=== PATIENT | male | born 1930 | race Caucasian/White ===

== ENCOUNTER 2017-08-12 17:25 | Inpatient (IN) | payer MEDICARE ==
[2017-08-12] VITALS (11 sets, daily range): BP systolic 78–105; BP diastolic 40–61
[~2017-08-12] VITALS: Ht 170.2 cm; Wt 63.5 kg
--- NOTE | 2017-08-12 17:58 | EKG ---
[facility] [address] [place] [address] Test Date: 2017-08-12 Test Time: 17:32:48 Pat Name: DEEJAY MADDEN Department: Room: Gender: Environmental Tech: [place] : 1930 Requested By: AUGUSTINE OLIVEIRA Order Number: [id number] Reading MD: David Guerrero MD Measurements Intervals [place] Rate: 100 P: -149 AR: 164 QRS: 90 QRSD: 44 T: -94 QT: 386 QTc: 501 Interpretive Statements SUSPECT SR LBBB Electronically Signed On 08-18-2017 16:42:44 BUSINESS COMPUTERS TEACHER by David Guerrero MD
[2017-08-12 17:59] LABS: BASO % 1 % (0-3); EOS % 0 % (0-3); HEMATOCRIT 43.2 % (39.0-53.0); HEMOGLOBIN 14.6 g/dL (13.0-17.5); LYMPH # 1.1 x10^3/uL (1.0-4.8); LYMPH % 15 % (24-48); MEAN CORPUSCULAR HEMOGLOBIN 31 pg (25-35); MEAN CORPUSCULAR HGB CONC 34 g/dL (31-37); MEAN CORPUSCULAR VOLUME 93 fL (79-100); MONO % 4 % (0-9); NEUT % 80 % (31-73); PLATELET COUNT 180 x10^3/uL (140-400); RED BLOOD COUNT 4.66 x10^6/uL (4.30-5.70); WHITE BLOOD COUNT 7.3 x10^3/uL (4.0-11.0)
[2017-08-12] MEDS ORDERED: DUTA0.5C PO (18:01)
[2017-08-12] MEDS ORDERED: CARV6.252 PO (18:01)
[2017-08-12] MEDS ORDERED: CHOL2000 PO (18:01)
[2017-08-12] MEDS ORDERED: CALC1TAB PO (18:01)
[2017-08-12] MEDS ORDERED: LAMO100T5 PO (18:01)
[2017-08-12] MEDS ORDERED: DOCU100C28 PO (18:01)
[2017-08-12] MEDS ORDERED: LEVO50TA5 PO (18:01)
[2017-08-12 18:14] LABS: CALCIUM 7.3 mg/dL (8.5-10.1); CREATININE 1.3 mg/dL (0.7-1.3); GFR 52.1; POTASSIUM 4.6 mmol/L (3.5-5.1)
[2017-08-12 18:20] LABS: ALBUMIN 3.2 g/dL (3.4-5.0); TOTAL BILIRUBIN 0.5 mg/dL (0.2-1.0); TOTAL PROTEIN 6.5 g/dL (6.4-8.2)
[2017-08-12] MEDS: IV NORMAL SALINE 1000ML BAG 1,000 ML IV SCH ×4 (18:20→19:21)
[2017-08-12] MEDS ORDERED: levOFLOXacin PER PHARMACY. MC PRN (18:30)
[2017-08-12] MEDS ORDERED: CALCIUM GLUCONATE 1,000 MG/10 ML VIAL. IVP ONE (18:30)
[2017-08-12 18:32] LABS: CKMB MASS 1.3 ng/mL (0.0-3.6)
[2017-08-12] MEDS ORDERED: guaiFENesin DM 200MG/20MG 10 ML SYRUP PO PRN (18:45)
--- NOTE | 2017-08-12 19:03 | PDOC1 ---
History and Physical Date of Admission Date of Admission DATE: 08/12/17 TIME: 18:56 Identification/Chief Complaint Chief Complaint cp soa Problems: Source Source: Caregiver, Chart review, Patient History of Present Illness History of Present Illness 87 y.o Cauucasian male who lives at home, has dementia and the 2 dtrs that were in earlier is not in room with him during my vist, BUt as per reports, CHARO TEJADA today , no temp or diarrhea but he is coughing and low sats on arrival ,. NOn smoker, no O2 at home, awaiting home meds to get a glimpse of his past medical, He constantly defers to his family when I asks him qs, BUt found to have infiltrates on Right side hence started on CAp coverage, with ICU admit bec of HYPOTENSION, currently getting sepsis protocol fluid challenge, lactate of 5 with normal WBC, Was sinus tachy 1teens on arrival. HOme meds, just in, on bB at home (we will hold) bec of hypotension CAlcium 7.3, corrected is still low at 7.9 Past Medical History Cardiovascular: HTN Endocrine: Hypothyroidism Past Surgical History Past Surgical History: No pertinent history Family History Family History: Hypertension Social History Smoke: No ALCOHOL: none Drugs: None Current Medications Current Medications Current Medications Sodium Chloride 1,000 ml @ 2,040 mls/hr Q30M IV Last administered on t 18:30; Start 08/12/17 at 18:21; Stop 08/12/17 at 19:21 Levofloxacin/ Dextrose (Levaquin Per Pharmacy) 1 each PRN DAILY PRN MC SEE COMMENTS; Start 08/12/17 at 18:30; Status UNV Calcium Gluconate (Calcium Gluconate) 2,000 mg 1X ONCE IVP ; Start 08/12/17 at 18:30; Stop 08/12/17 at 18:38; Status DC Docusate Sodium (Colace) 200 mg DAILY PO ; Start 08/13/17 at 09:00 Dutasteride (Avodart) 0.5 mg DAILY PO ; Start 08/13/17 at 09:00 Lamotrigine (LaMICtal) 200 mg DAILY PO ; Start 08/13/17 at 09:00 Levothyroxine Sodium (Synthroid) 50 mcg DAILY PO ; Start 08/13/17 at 09:00 Vitamin D (Vitamin D3) 2,000 unit DAILY PO ; Start 08/13/17 at 09:00 Calcium/Vitamin D (Oscal D 250mg/ 125uts) 1 tab DAILYWBKFT PO ; Start 08/13/17 at 08:00 Albuterol/ Ipratropium (Duoneb) 3 ml RTQID NEB ; Start 08/12/17 at 20:00 Guaifenesin (Robitussin Dm) 10 ml PRN Q6HRS PRN PO COUGH; Start 08/12/17 at 18: 45 Levofloxacin/ Dextrose 150 ml @ As Directed STK-MED ONCE IV ; Start 08/12/17 at 18:32; Stop 08/12/17 at 18:33; Status DC Levofloxacin/ Dextrose 150 ml @ 100 mls/hr ONCE ONCE IV ; Start 08/12/17 at 18 :45; Stop 08/12/17 at 20:14 Active Scripts Active Reported Avodart (Dutasteride) 0.5 Mg Capsule 1 Cap PO DAILY Docusate Sodium 100 Mg Capsule 2 Cap PO DAILY Caltrate 600 + D Tablet (Calcium Carbonate/Vitamin D3) 1 Each Tablet 1 Each PO Vitamin D (Cholecalciferol (Vitamin D3)) 2,000 Unit Capsule 1 Cap PO DAILY Carvedilol 6.25 Mg Tablet 0.5 Tab PO DAILY Lamictal (Lamotrigine) 100 Mg Tablet 2 Tab PO DAILY Levothyroxine Sodium 50 Mcg Tablet 1 Tab PO DAILY Allergies Allergies: Coded Allergies: No Known Drug Allergies (Unverified , 08/12/17) ROS Review of System limited, dementia Physical Exam General: Alert, Oriented X3, Cooperative, mild distress, Other (hRD Of hearing too) Lungs: Normal air movement, Other (dec BS< poor effort, dullness to percussion Rt side) Heart: S1S2, RRR, no thrills, no rubs, no gallops, other (sinus tachy) Abdomen: Normal bowel sounds, Soft, No tenderness, No hepatosplenomegaly, No masses Male Genitals Exam: normal genitalia, normal prostate Rectal Exam: not examined PELVIC: Nml ext genitalia Extremities: No clubbing, No cyanosis, No edema, Normal pulses, No tenderness/ swelling Skin: No rashes, No breakdown, No significant lesion Neuro: Normal gait, Normal speech, Strength at 5/5 X4 ext, Normal tone, Sensation intact, Cranial nerves 3-12 NL, Reflexes 2+ Psych/Mental Status: Mental status NL, Mood NL Vitals Vitals Vital Signs Date Time Temp Pulse Resp B/P (MAP) Pulse Ox O2 Delivery O2 Flow Rate FiO2 08/12/17 17:25 99.1 95 26 91/52 (65) 86 Room Air 99.1 Labs Labs Laboratory Tests Test 08/12/17 17:45 White Blood Count 7.3 x10^3/uL (4.0-11.0) Red Blood Count 4.66 x10^6/uL (4.30-5.70) Hemoglobin 14.6 g/dL (13.0-17.5) Hematocrit 43.2 % (39.0-53.0) Mean Corpuscular Volume 93 fL (79-100) Mean Corpuscular Hemoglobin 31 pg (25-35) Mean Corpuscular Hemoglobin Concent 34 g/dL (31-37) Red Cell Distribution Width 14.0 % (11.5-14.5) Platelet Count 180 x10^3/uL (140-400) Neutrophils (%) (Auto) 80 % (31-73) Lymphocytes (%) (Auto) 15 % (24-48) Monocytes (%) (Auto) 4 % (0-9) Eosinophils (%) (Auto) 0 % (0-3) Basophils (%) (Auto) 1 % (0-3) Neutrophils # (Auto) 5.8 x10^3uL (1.8-7.7) Lymphocytes # (Auto) 1.1 x10^3/uL (1.0-4.8) Monocytes # (Auto) 0.3 x10^3/uL (0.0-1.1) Eosinophils # (Auto) 0.0 x10^3/uL (0.0-0.7) Basophils # (Auto) 0.0 x10^3/uL (0.0-0.2) Sodium Level 136 mmol/L (136-145) Potassium Level 4.6 mmol/L (3.5-5.1) Chloride Level 103 mmol/L (98-107) Carbon Dioxide Level 19 mmol/L (21-32) Anion Gap 14 (6-14) Blood Urea Nitrogen 28 mg/dL (8-26) Creatinine 1.3 mg/dL (0.7-1.3) Estimated GFR (Cockcroft-Gault) 52.1 BUN/Creatinine Ratio 22 (6-20) Glucose Level 99 mg/dL (70-99) Lactic Acid Level 5.3 mmol/L (0.4-2.0) Calcium Level 7.3 mg/dL (8.5-10.1) Total Bilirubin 0.5 mg/dL (0.2-1.0) Aspartate Amino Transf (AST/SGOT) 21 U/L (15-37) Alanine Aminotransferase (ALT/SGPT) 19 U/L (16-63) Alkaline Phosphatase 71 U/L (46-116) Creatine Kinase 117 U/L (39-308) Creatine Kinase MB (Mass) 1.3 ng/mL (0.0-3.6) Creatine Kinase MB Relative Index 1.1 % (0-4) Troponin I Quantitative < 0.017 ng/mL (0.000-0.055) KO-Riv-A-Type Natriuretic Peptide 443 pg/mL (0-449) Total Protein 6.5 g/dL (6.4-8.2) Albumin 3.2 g/dL (3.4-5.0) Albumin/Globulin Ratio 1.0 (1.0-1.7) Laboratory Tests Test 08/12/17 17:45 White Blood Count 7.3 x10^3/uL (4.0-11.0) Red Blood Count 4.66 x10^6/uL (4.30-5.70) Hemoglobin 14.6 g/dL (13.0-17.5) Hematocrit 43.2 % (39.0-53.0) Mean Corpuscular Volume 93 fL (79-100) Mean Corpuscular Hemoglobin 31 pg (25-35) Mean Corpuscular Hemoglobin Concent 34 g/dL (31-37) Red Cell Distribution Width 14.0 % (11.5-14.5) Platelet Count 180 x10^3/uL (140-400) Neutrophils (%) (Auto) 80 % (31-73) Lymphocytes (%) (Auto) 15 % (24-48) Monocytes (%) (Auto) 4 % (0-9) Eosinophils (%) (Auto) 0 % (0-3) Basophils (%) (Auto) 1 % (0-3) Neutrophils # (Auto) 5.8 x10^3uL (1.8-7.7) Lymphocytes # (Auto) 1.1 x10^3/uL (1.0-4.8) Monocytes # (Auto) 0.3 x10^3/uL (0.0-1.1) Eosinophils # (Auto) 0.0 x10^3/uL (0.0-0.7) Basophils # (Auto) 0.0 x10^3/uL (0.0-0.2) Sodium Level 136 mmol/L (136-145) Potassium Level 4.6 mmol/L (3.5-5.1) Chloride Level 103 mmol/L (98-107) Carbon Dioxide Level 19 mmol/L (21-32) Anion Gap 14 (6-14) Blood Urea Nitrogen 28 mg/dL (8-26) Creatinine 1.3 mg/dL (0.7-1.3) Estimated GFR (Cockcroft-Gault) 52.1 BUN/Creatinine Ratio 22 (6-20) Glucose Level 99 mg/dL (70-99) Lactic Acid Level 5.3 mmol/L (0.4-2.0) Calcium Level 7.3 mg/dL (8.5-10.1) Total Bilirubin 0.5 mg/dL (0.2-1.0) Aspartate Amino Transf (AST/SGOT) 21 U/L (15-37) Alanine Aminotransferase (ALT/SGPT) 19 U/L (16-63) Alkaline Phosphatase 71 U/L (46-116) Creatine Kinase 117 U/L (39-308) Creatine Kinase MB (Mass) 1.3 ng/mL (0.0-3.6) Creatine Kinase MB Relative Index 1.1 % (0-4) Troponin I Quantitative < 0.017 ng/mL (0.000-0.055) AD-Fhi-X-Type Natriuretic Peptide 443 pg/mL (0-449) Total Protein 6.5 g/dL (6.4-8.2) Albumin 3.2 g/dL (3.4-5.0) Albumin/Globulin Ratio 1.0 (1.0-1.7) VTE Prophylaxis Ordered VTE Prophylaxis Devices: Yes VTE Pharmacological Prophylaxi: Yes Assessment/Plan Assessment/Plan 1. CAP 2. Severe sepsis with HYPOTENSION, infectious 3. Dementia 4. 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 HYPOTENSION 7. HYPOthyroidism - on synthroid 8. Elevated lactate\ 9. Hypoxic respi failure sec to CAP PLAN: Admit ICU FLuid bolus challenge per sepsis protocol CAP coverage Hold home coreg Recheck lactate in AM Ok for reg diet of no choking spells PT.OT once VS more stable Consult pulmo/CC re hypoxia and CAP and sepsis DVT ppx Seen at ER, Dw ER MD Was not able to address code status as family not at bedside MARSHALL PHELPS MD Aug 12, 2017 19:03
--- NOTE | 2017-08-12 19:41 | PHYS DOC ---
Past Medical History Past Medical History: Dementia, Hypertension, Hypothyroid, Seizure, Other Additional Past Medical Histor: BPH Past Surgical History: Pacemaker Additional Past Surgical Histo: DEFIBRILLATOR Alcohol Use: None Drug Use: None Adult General Chief Complaint Chief Complaint: SHORTNESS OF BREATH HPI HPI Patient is a 87 year old male who presents with shortness of breath and chest pain. Patient brought to the emergency department by EMS from home. Patient's daughter called EMS after patient was found to have sudden onset of symptoms. Daughter reports that the patient did not appear to be ill prior to symptom onset. Patient has history of dementia and is unable to provide history of events. The patient has had no fever. Daughter denies any known coughing though patient is noted to be coughing during my history taking. The patient states currently he does not have any chest pain and has not had any nausea or vomiting. Patient has no history of known aspiration and daughter states that the patient has been able to eat and drink without difficulty. Review of Systems Review of Systems Constitutional: Denies fever or chills [] Eyes: Denies change in visual acuity, redness, or eye pain [] HENT: Denies nasal congestion or sore throat [] Respiratory: Shortness of breath[] Cardiovascular: Chest pain, currently resolved[] GI: Denies abdominal pain, nausea, vomiting, bloody stools or diarrhea [] : Denies dysuria or hematuria [] Musculoskeletal: Denies back pain or joint pain [] Integument: Denies rash or skin lesions [] Neurologic: Denies headache, focal weakness or sensory changes [] Current Medications Current Medications Current Medications Medications (Trade) Dose Ordered Sig/[facility] Start Time Stop Time Status Last Admin Dose Admin Sodium Chloride 1,000 ml @ 2,040 mls/hr Q30M 08/12/17 18:21 08/12/17 19:21 DC 08/12/17 18:30 2,040 MLS/HR Allergies Allergies Allergies Coded Allergies Type Severity Reaction Last Updated Verified No Known Drug Allergies 08/12/17 No Physical Exam Physical Exam Constitutional: Alert, afebrile, no acute distress. [] HENT: Normocephalic, atraumatic, bilateral external ears normal, oropharynx moist, no oral exudates, nose normal. [] Eyes: PERRLA, EOMI, conjunctiva normal, no discharge. [] Neck: Normal range of motion, no tenderness, supple, no stridor. [] Cardiovascular: Tachycardia, regular rhythm, no murmur [] Lungs & Thorax: Mildly her strict air movement bilaterally, rales in right lower lobe, no wheezes[] Abdomen: Bowel sounds normal, soft, no tenderness, no masses, no pulsatile masses. [] Skin: Warm, dry, no erythema, no rash. [] Back: No tenderness, no CVA tenderness. [] Extremities: No tenderness, no cyanosis, no clubbing, ROM intact, no edema. [] Neurologic: Alert and oriented to person only, normal motor function, normal sensory function, no focal deficits noted. [] Current Patient Data Vital Signs Vital Signs Date Time Temp Pulse Resp B/P (MAP) Pulse Ox O2 Delivery O2 Flow Rate FiO2 08/12/17 18:15 88 20 75/52 (60) 95 Nasal Cannula 3.0 08/12/17 17:25 99.1 99.1 Lab Values Laboratory Tests Test 08/12/17 17:45 White Blood Count 7.3 x10^3/uL (4.0-11.0) Red Blood Count 4.66 x10^6/uL (4.30-5.70) Hemoglobin 14.6 g/dL (13.0-17.5) Hematocrit 43.2 % (39.0-53.0) Mean Corpuscular Volume 93 fL (79-100) Mean Corpuscular Hemoglobin 31 pg (25-35) Mean Corpuscular Hemoglobin Concent 34 g/dL (31-37) Red Cell Distribution Width 14.0 % (11.5-14.5) Platelet Count 180 x10^3/uL (140-400) Neutrophils (%) (Auto) 80 % (31-73) H Lymphocytes (%) (Auto) 15 % (24-48) L Monocytes (%) (Auto) 4 % (0-9) Eosinophils (%) (Auto) 0 % (0-3) Basophils (%) (Auto) 1 % (0-3) Neutrophils # (Auto) 5.8 x10^3uL (1.8-7.7) Lymphocytes # (Auto) 1.1 x10^3/uL (1.0-4.8) Monocytes # (Auto) 0.3 x10^3/uL (0.0-1.1) Eosinophils # (Auto) 0.0 x10^3/uL (0.0-0.7) Basophils # (Auto) 0.0 x10^3/uL (0.0-0.2) Sodium Level 136 mmol/L (136-145) Potassium Level 4.6 mmol/L (3.5-5.1) Chloride Level 103 mmol/L (98-107) Carbon Dioxide Level 19 mmol/L (21-32) L Anion Gap 14 (6-14) Blood Urea Nitrogen 28 mg/dL (8-26) H Creatinine 1.3 mg/dL (0.7-1.3) Estimated GFR (Cockcroft-Gault) 52.1 BUN/Creatinine Ratio 22 (6-20) H Glucose Level 99 mg/dL (70-99) Lactic Acid Level 5.3 mmol/L (0.4-2.0) *H Calcium Level 7.3 mg/dL (8.5-10.1) L Total Bilirubin 0.5 mg/dL (0.2-1.0) Aspartate Amino Transferase (AST) 21 U/L (15-37) Alanine Aminotransferase (ALT) 19 U/L (16-63) Alkaline Phosphatase 71 U/L (46-116) Creatine Kinase 117 U/L (39-308) Creatine Kinase MB (Mass) 1.3 ng/mL (0.0-3.6) Creatine Kinase MB Relative Index 1.1 % (0-4) Troponin I Quantitative < 0.017 ng/mL (0.000-0.055) YP-Ktn-K-Type Natriuretic Peptide 443 pg/mL (0-449) Total Protein 6.5 g/dL (6.4-8.2) Albumin 3.2 g/dL (3.4-5.0) L Albumin/Globulin Ratio 1.0 (1.0-1.7) Laboratory Tests 08/12/17 17:45 Laboratory Tests 08/12/17 17:45 EKG EKG Interpreted by me: Heart rate 100, paced ventricular rhythm, no acute ST elevations[] Radiology/Procedures Radiology/Procedures One view AP chest x-ray interpreted by me: Right lower lobe infiltrates consistent with pneumonia, no effusions, normal cardiac silhouette[] Course & Med Decision Making Course & Med Decision Making Pertinent Labs and Imaging studies reviewed. (See chart for details) Patient was found to be tachypneic and tachycardic with confirm source of infection in the right lower lobe of the lung and elevated lactate level consistent with severe sepsis and continued acquired pneumonia. Patient was started on a 30 mL/kg bolus for severe sepsis protocol. Patient started on IV Levaquin for antibiotic treatment. Patient's blood pressure improved above 95 systolic while on IV fluids. Patient be admitted ICU for further care. I spoke with Dr. Sykes who accepted care patient in hospital. Critical care time excluding procedures: 40 minutes Dragon Disclaimer Dragon Disclaimer This electronic medical record was generated, in whole or in part, using a voice recognition dictation system. Departure Departure Impression: Primary Impression: Severe sepsis Additional Impressions: Community acquired pneumonia Lactic acidosis Dementia Disposition: ADMITTED INPATIENT Admitting Physician: Letitia Sykes Condition: GUARDED Referrals: KASIE MUELLER (PCP) Problem Qualifiers Additional Impressions: Community acquired pneumonia Laterality: right Lung location: lower lobe of lung Qualified Codes: J18.1 - Lobar pneumonia, unspecified organism Dementia Dementia type: unspecified type Dementia behavioral disturbance: without behavioral disturbance Qualified Codes: F03.90 - Unspecified dementia without behavioral disturbance AUGUSTINE OLIVEIRA MD Aug 12, 2017 19:41
[2017-08-12] MEDS: ENOXAPARIN 40 MG/0.4 ML SYRINGE. SQ SCH (19:47)
[2017-08-12] MEDS ORDERED: IPRATRPIUM/ALBUTEROL 0.5/2.5MG 3 ML NEBU. NEB SCH (20:00)
[2017-08-12] MEDS ORDERED: VANCOMYCIN 1GM IVPB FOR OMNI 250 ML IV ONE (21:00)
[2017-08-12] MEDS: BENZONATATE 100 MG CAPSULE. PO SCH (21:00)
[2017-08-12] MEDS: IPRATRPIUM/ALBUTEROL 0.5/2.5MG 3 ML NEBU. NEB SCH (21:10)
[2017-08-12] MEDS: NOREPINEPHRIN PREMIX 250 ML IV PRN (21:17)
[2017-08-12] MEDS ORDERED: VANCOMYCIN 1.75 GM in IV DEXTROSE 5% 500 ML IV ONE (22:00)
[2017-08-13] VITALS (17 sets, daily range): BP systolic 76–133; BP diastolic 45–68
[2017-08-13] MEDS: IV NORMAL SALINE 1000ML BAG 1,000 ML IV SCH ×2 (07:44→14:39)
[2017-08-13] MEDS: NOREPINEPHRIN PREMIX 250 ML IV PRN (07:45)
[2017-08-13] MEDS: IPRATRPIUM/ALBUTEROL 0.5/2.5MG 3 ML NEBU. NEB SCH ×3 (07:57→15:31)
[2017-08-13] MEDS ORDERED: VANCOMYCIN PER PHARMACY MC PRN (08:15)
--- NOTE | 2017-08-13 08:19 | RAD ---
EXAM: Chest one view. HISTORY: Shortness of breath, chest pain. COMPARISON: 08/27/2008. FINDINGS: A frontal view of the chest is obtained. A left-sided pacer/defibrillator has its leads in the right atrium and right ventricle. There is an airspace opacity in the right base consistent with pneumonia. Opacities in the left base are chronic and likely represent atelectasis or scarring. There is no pneumothorax or pleural effusion. The heart is not enlarged. IMPRESSION: 1. Right basilar pneumonia. Follow-up to resolution is recommended.
[2017-08-13] MEDS ORDERED: PIPERACILLIN/TAZOBACTAM 3.375 GM in IV DEXTROSE 5% 50 ML IV SCH (08:30)
--- NOTE | 2017-08-13 08:30 | PDOC ---
Provider Note Provider Note pt seen consult dictated [id number] JHOAN YADAV MD Aug 13, 2017 08:30
[2017-08-13] MEDS: DUTASTERIDE 0.5 MG CAPSULE PO SCH (08:33)
[2017-08-13] MEDS: lamoTRIgine 100 MG TABLET. PO SCH (08:34)
[2017-08-13] MEDS: LEVOTHYROXINE 50 MCG TABLET PO SCH (08:34)
[2017-08-13] MEDS: BENZONATATE 100 MG CAPSULE. PO SCH ×3 (08:34→20:55)
[2017-08-13] MEDS: CHOLECALCIFEROL (VITAMIN D3) 1,000 UNIT TABLET PO SCH (08:34)
[2017-08-13] MEDS: DOCUSATE SODIUM 100 MG CAPSULE. PO SCH (08:34)
[2017-08-13] MEDS: VANCOMYCIN PER PHARMACY MC PRN (08:44)
[2017-08-13] MEDS: CALCIUM CARB/VIT D3 250/125 TABLET. PO SCH (09:01)
[2017-08-13] MEDS: PIPERACILLIN/TAZO IV Push 3.375 GM VIAL. IVP SCH ×3 (09:01→18:02)
--- NOTE | 2017-08-13 11:57 | PDOC ---
PULMONARY PROGRESS NOTES Vitals Vital Signs Date Time Temp Pulse Resp B/P (MAP) Pulse Ox O2 Delivery O2 Flow Rate FiO2 08/13/17 11:13 85 25 76/56 (63) 92 Nasal Cannula 3.0 08/13/17 04:00 100.0 100.0 Labs Laboratory Tests Test 08/12/17 17:45 08/12/17 23:45 08/13/17 05:25 White Blood Count 7.3 x10^3/uL (4.0-11.0) Red Blood Count 4.66 x10^6/uL (4.30-5.70) Hemoglobin 14.6 g/dL (13.0-17.5) Hematocrit 43.2 % (39.0-53.0) Mean Corpuscular Volume 93 fL (79-100) Mean Corpuscular Hemoglobin 31 pg (25-35) Mean Corpuscular Hemoglobin Concent 34 g/dL (31-37) Red Cell Distribution Width 14.0 % (11.5-14.5) Platelet Count 180 x10^3/uL (140-400) Neutrophils (%) (Auto) 80 % (31-73) Lymphocytes (%) (Auto) 15 % (24-48) Monocytes (%) (Auto) 4 % (0-9) Eosinophils (%) (Auto) 0 % (0-3) Basophils (%) (Auto) 1 % (0-3) Neutrophils # (Auto) 5.8 x10^3uL (1.8-7.7) Lymphocytes # (Auto) 1.1 x10^3/uL (1.0-4.8) Monocytes # (Auto) 0.3 x10^3/uL (0.0-1.1) Eosinophils # (Auto) 0.0 x10^3/uL (0.0-0.7) Basophils # (Auto) 0.0 x10^3/uL (0.0-0.2) Sodium Level 136 mmol/L (136-145) Potassium Level 4.6 mmol/L (3.5-5.1) Chloride Level 103 mmol/L (98-107) Carbon Dioxide Level 19 mmol/L (21-32) Anion Gap 14 (6-14) Blood Urea Nitrogen 28 mg/dL (8-26) Creatinine 1.3 mg/dL (0.7-1.3) Estimated GFR (Cockcroft-Gault) 52.1 BUN/Creatinine Ratio 22 (6-20) Glucose Level 99 mg/dL (70-99) Lactic Acid Level 5.3 mmol/L (0.4-2.0) 4.2 mmol/L (0.4-2.0) 4.7 mmol/L (0.4-2.0) Calcium Level 7.3 mg/dL (8.5-10.1) Total Bilirubin 0.5 mg/dL (0.2-1.0) Aspartate Amino Transf (AST/SGOT) 21 U/L (15-37) Alanine Aminotransferase (ALT/SGPT) 19 U/L (16-63) Alkaline Phosphatase 71 U/L (46-116) Creatine Kinase 117 U/L (39-308) Creatine Kinase MB (Mass) 1.3 ng/mL (0.0-3.6) Creatine Kinase MB Relative Index 1.1 % (0-4) Troponin I Quantitative < 0.017 ng/mL (0.000-0.055) UE-Sor-Y-Type Natriuretic Peptide 443 pg/mL (0-449) Total Protein 6.5 g/dL (6.4-8.2) Albumin 3.2 g/dL (3.4-5.0) Albumin/Globulin Ratio 1.0 (1.0-1.7) Laboratory Tests Test 08/12/17 17:45 08/12/17 23:45 08/13/17 05:25 White Blood Count 7.3 x10^3/uL (4.0-11.0) Red Blood Count 4.66 x10^6/uL (4.30-5.70) Hemoglobin 14.6 g/dL (13.0-17.5) Hematocrit 43.2 % (39.0-53.0) Mean Corpuscular Volume 93 fL (79-100) Mean Corpuscular Hemoglobin 31 pg (25-35) Mean Corpuscular Hemoglobin Concent 34 g/dL (31-37) Red Cell Distribution Width 14.0 % (11.5-14.5) Platelet Count 180 x10^3/uL (140-400) Neutrophils (%) (Auto) 80 % (31-73) Lymphocytes (%) (Auto) 15 % (24-48) Monocytes (%) (Auto) 4 % (0-9) Eosinophils (%) (Auto) 0 % (0-3) Basophils (%) (Auto) 1 % (0-3) Neutrophils # (Auto) 5.8 x10^3uL (1.8-7.7) Lymphocytes # (Auto) 1.1 x10^3/uL (1.0-4.8) Monocytes # (Auto) 0.3 x10^3/uL (0.0-1.1) Eosinophils # (Auto) 0.0 x10^3/uL (0.0-0.7) Basophils # (Auto) 0.0 x10^3/uL (0.0-0.2) Sodium Level 136 mmol/L (136-145) Potassium Level 4.6 mmol/L (3.5-5.1) Chloride Level 103 mmol/L (98-107) Carbon Dioxide Level 19 mmol/L (21-32) Anion Gap 14 (6-14) Blood Urea Nitrogen 28 mg/dL (8-26) Creatinine 1.3 mg/dL (0.7-1.3) Estimated GFR (Cockcroft-Gault) 52.1 BUN/Creatinine Ratio 22 (6-20) Glucose Level 99 mg/dL (70-99) Lactic Acid Level 5.3 mmol/L (0.4-2.0) 4.2 mmol/L (0.4-2.0) 4.7 mmol/L (0.4-2.0) Calcium Level 7.3 mg/dL (8.5-10.1) Total Bilirubin 0.5 mg/dL (0.2-1.0) Aspartate Amino Transf (AST/SGOT) 21 U/L (15-37) Alanine Aminotransferase (ALT/SGPT) 19 U/L (16-63) Alkaline Phosphatase 71 U/L (46-116) Creatine Kinase 117 U/L (39-308) Creatine Kinase MB (Mass) 1.3 ng/mL (0.0-3.6) Creatine Kinase MB Relative Index 1.1 % (0-4) Troponin I Quantitative < 0.017 ng/mL (0.000-0.055) RY-Wad-V-Type Natriuretic Peptide 443 pg/mL (0-449) Total Protein 6.5 g/dL (6.4-8.2) Albumin 3.2 g/dL (3.4-5.0) Albumin/Globulin Ratio 1.0 (1.0-1.7) Medications Active Scripts Medications Dose Route/Sig Max Daily Dose Days Date Category Avodart (Dutasteride) 0.5 Mg Capsule 1 Cap PO DAILY 08/12/17 Reported Docusate Sodium 100 Mg Capsule 2 Cap PO DAILY 08/12/17 Reported Caltrate 600 + D Tablet (Calcium Carbonate/Vitamin D3) 1 Each Tablet 1 Each PO 08/12/17 Reported Vitamin D (Cholecalciferol (Vitamin D3)) 2,000 Unit Capsule 1 Cap PO DAILY 08/12/17 Reported Carvedilol 6.25 Mg Tablet 0.5 Tab PO DAILY 08/12/17 Reported Lamictal (Lamotrigine) 100 Mg Tablet 2 Tab PO DAILY 08/12/17 Reported Levothyroxine Sodium 50 Mcg Tablet 1 Tab PO DAILY 08/12/17 Reported Impression . DICTATED SEPSIS GRAM NEG PNEUMONIA LONNIE MEREDITH MD Aug 13, 2017 11:57
--- NOTE | 2017-08-13 13:46 | PDOC ---
PROGRESS NOTES Chief Complaint Chief Complaint 1. CAP 2. Severe sepsis with HYPOTENSION, infectious 3. Dementia 4. 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 HYPOTENSION 7. HYPOthyroidism - on synthroid 8. Elevated lactate\ 9. Hypoxic respi failure sec to CAP History of Present Illness History of Present Illness Pt seen at bedside in ICU. Eating lunch, in NAD. Per RN, BP has been controlled today, Levophed initially given at 15mcg now titrated down to 4mcg. Is receiving 4L O2 by NC. Does not use supplemental O2 at home normally. Sats have been good with NC use today. Vitals Vitals Vital Signs Date Time Temp Pulse Resp B/P (MAP) Pulse Ox O2 Delivery O2 Flow Rate FiO2 08/13/17 13:00 69 26 117/52 (73) 94 Nasal Cannula 3.0 08/13/17 04:00 100.0 100.0 Physical Exam General: Alert, Oriented X3, Cooperative, No acute distress, Other (hRD Of hearing too) Abdomen: Normal bowel sounds, Soft, No tenderness, No hepatosplenomegaly, No masses Extremities: No clubbing, No cyanosis, No edema, Normal pulses, No tenderness/ swelling Skin: No rashes, No breakdown, No significant lesion Labs LABS Laboratory Tests Test 08/12/17 17:45 08/12/17 23:45 08/13/17 05:25 White Blood Count 7.3 x10^3/uL (4.0-11.0) Red Blood Count 4.66 x10^6/uL (4.30-5.70) Hemoglobin 14.6 g/dL (13.0-17.5) Hematocrit 43.2 % (39.0-53.0) Mean Corpuscular Volume 93 fL (79-100) Mean Corpuscular Hemoglobin 31 pg (25-35) Mean Corpuscular Hemoglobin Concent 34 g/dL (31-37) Red Cell Distribution Width 14.0 % (11.5-14.5) Platelet Count 180 x10^3/uL (140-400) Neutrophils (%) (Auto) 80 % (31-73) Lymphocytes (%) (Auto) 15 % (24-48) Monocytes (%) (Auto) 4 % (0-9) Eosinophils (%) (Auto) 0 % (0-3) Basophils (%) (Auto) 1 % (0-3) Neutrophils # (Auto) 5.8 x10^3uL (1.8-7.7) Lymphocytes # (Auto) 1.1 x10^3/uL (1.0-4.8) Monocytes # (Auto) 0.3 x10^3/uL (0.0-1.1) Eosinophils # (Auto) 0.0 x10^3/uL (0.0-0.7) Basophils # (Auto) 0.0 x10^3/uL (0.0-0.2) Sodium Level 136 mmol/L (136-145) Potassium Level 4.6 mmol/L (3.5-5.1) Chloride Level 103 mmol/L (98-107) Carbon Dioxide Level 19 mmol/L (21-32) Anion Gap 14 (6-14) Blood Urea Nitrogen 28 mg/dL (8-26) Creatinine 1.3 mg/dL (0.7-1.3) Estimated GFR (Cockcroft-Gault) 52.1 BUN/Creatinine Ratio 22 (6-20) Glucose Level 99 mg/dL (70-99) Lactic Acid Level 5.3 mmol/L (0.4-2.0) 4.2 mmol/L (0.4-2.0) 4.7 mmol/L (0.4-2.0) Calcium Level 7.3 mg/dL (8.5-10.1) Total Bilirubin 0.5 mg/dL (0.2-1.0) Aspartate Amino Transf (AST/SGOT) 21 U/L (15-37) Alanine Aminotransferase (ALT/SGPT) 19 U/L (16-63) Alkaline Phosphatase 71 U/L (46-116) Creatine Kinase 117 U/L (39-308) Creatine Kinase MB (Mass) 1.3 ng/mL (0.0-3.6) Creatine Kinase MB Relative Index 1.1 % (0-4) Troponin I Quantitative < 0.017 ng/mL (0.000-0.055) VC-Xvq-O-Type Natriuretic Peptide 443 pg/mL (0-449) Total Protein 6.5 g/dL (6.4-8.2) Albumin 3.2 g/dL (3.4-5.0) Albumin/Globulin Ratio 1.0 (1.0-1.7) Review of Systems Review of Systems Pt AOCx3, in NAD. Normal respirations on 4L by NC. EOMI b/l, no apparent dysphagia. No c/c/e. Assessment and Plan Assessmemt and Plan Problems Medical Problems: (1) Community acquired pneumonia Status: Acute (2) Dementia Status: Acute (3) Lactic acidosis Status: Acute (4) Severe sepsis Status: Acute 1. CAP 2. Severe sepsis with HYPOTENSION, infectious 3. Dementia 4. 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 HYPOTENSION 7. HYPOthyroidism - on synthroid 8. Elevated lactate\ 9. Hypoxic respi failure sec to CAP PLAN: Continue ICU monitoring Continue abx's Continue sepsis protocol Continue O2 NC prn Continue monitoring BP PT/OT Problems: Comment Review of Relevant I have reviewed the following items emmanuel (where applicable) has been applied. Labs Laboratory Tests Test 08/12/17 17:45 08/12/17 23:45 08/13/17 05:25 White Blood Count 7.3 x10^3/uL (4.0-11.0) Red Blood Count 4.66 x10^6/uL (4.30-5.70) Hemoglobin 14.6 g/dL (13.0-17.5) Hematocrit 43.2 % (39.0-53.0) Mean Corpuscular Volume 93 fL (79-100) Mean Corpuscular Hemoglobin 31 pg (25-35) Mean Corpuscular Hemoglobin Concent 34 g/dL (31-37) Red Cell Distribution Width 14.0 % (11.5-14.5) Platelet Count 180 x10^3/uL (140-400) Neutrophils (%) (Auto) 80 % (31-73) Lymphocytes (%) (Auto) 15 % (24-48) Monocytes (%) (Auto) 4 % (0-9) Eosinophils (%) (Auto) 0 % (0-3) Basophils (%) (Auto) 1 % (0-3) Neutrophils # (Auto) 5.8 x10^3uL (1.8-7.7) Lymphocytes # (Auto) 1.1 x10^3/uL (1.0-4.8) Monocytes # (Auto) 0.3 x10^3/uL (0.0-1.1) Eosinophils # (Auto) 0.0 x10^3/uL (0.0-0.7) Basophils # (Auto) 0.0 x10^3/uL (0.0-0.2) Sodium Level 136 mmol/L (136-145) Potassium Level 4.6 mmol/L (3.5-5.1) Chloride Level 103 mmol/L (98-107) Carbon Dioxide Level 19 mmol/L (21-32) Anion Gap 14 (6-14) Blood Urea Nitrogen 28 mg/dL (8-26) Creatinine 1.3 mg/dL (0.7-1.3) Estimated GFR (Cockcroft-Gault) 52.1 BUN/Creatinine Ratio 22 (6-20) Glucose Level 99 mg/dL (70-99) Lactic Acid Level 5.3 mmol/L (0.4-2.0) 4.2 mmol/L (0.4-2.0) 4.7 mmol/L (0.4-2.0) Calcium Level 7.3 mg/dL (8.5-10.1) Total Bilirubin 0.5 mg/dL (0.2-1.0) Aspartate Amino Transf (AST/SGOT) 21 U/L (15-37) Alanine Aminotransferase (ALT/SGPT) 19 U/L (16-63) Alkaline Phosphatase 71 U/L (46-116) Creatine Kinase 117 U/L (39-308) Creatine Kinase MB (Mass) 1.3 ng/mL (0.0-3.6) Creatine Kinase MB Relative Index 1.1 % (0-4) Troponin I Quantitative < 0.017 ng/mL (0.000-0.055) OZ-Tkt-C-Type Natriuretic Peptide 443 pg/mL (0-449) Total Protein 6.5 g/dL (6.4-8.2) Albumin 3.2 g/dL (3.4-5.0) Albumin/Globulin Ratio 1.0 (1.0-1.7) Laboratory Tests Test 08/12/17 17:45 08/12/17 23:45 08/13/17 05:25 White Blood Count 7.3 x10^3/uL (4.0-11.0) Red Blood Count 4.66 x10^6/uL (4.30-5.70) Hemoglobin 14.6 g/dL (13.0-17.5) Hematocrit 43.2 % (39.0-53.0) Mean Corpuscular Volume 93 fL (79-100) Mean Corpuscular Hemoglobin 31 pg (25-35) Mean Corpuscular Hemoglobin Concent 34 g/dL (31-37) Red Cell Distribution Width 14.0 % (11.5-14.5) Platelet Count 180 x10^3/uL (140-400) Neutrophils (%) (Auto) 80 % (31-73) Lymphocytes (%) (Auto) 15 % (24-48) Monocytes (%) (Auto) 4 % (0-9) Eosinophils (%) (Auto) 0 % (0-3) Basophils (%) (Auto) 1 % (0-3) Neutrophils # (Auto) 5.8 x10^3uL (1.8-7.7) Lymphocytes # (Auto) 1.1 x10^3/uL (1.0-4.8) Monocytes # (Auto) 0.3 x10^3/uL (0.0-1.1) Eosinophils # (Auto) 0.0 x10^3/uL (0.0-0.7) Basophils # (Auto) 0.0 x10^3/uL (0.0-0.2) Sodium Level 136 mmol/L (136-145) Potassium Level 4.6 mmol/L (3.5-5.1) Chloride Level 103 mmol/L (98-107) Carbon Dioxide Level 19 mmol/L (21-32) Anion Gap 14 (6-14) Blood Urea Nitrogen 28 mg/dL (8-26) Creatinine 1.3 mg/dL (0.7-1.3) Estimated GFR (Cockcroft-Gault) 52.1 BUN/Creatinine Ratio 22 (6-20) Glucose Level 99 mg/dL (70-99) Lactic Acid Level 5.3 mmol/L (0.4-2.0) 4.2 mmol/L (0.4-2.0) 4.7 mmol/L (0.4-2.0) Calcium Level 7.3 mg/dL (8.5-10.1) Total Bilirubin 0.5 mg/dL (0.2-1.0) Aspartate Amino Transf (AST/SGOT) 21 U/L (15-37) Alanine Aminotransferase (ALT/SGPT) 19 U/L (16-63) Alkaline Phosphatase 71 U/L (46-116) Creatine Kinase 117 U/L (39-308) Creatine Kinase MB (Mass) 1.3 ng/mL (0.0-3.6) Creatine Kinase MB Relative Index 1.1 % (0-4) Troponin I Quantitative < 0.017 ng/mL (0.000-0.055) ZG-Bcy-Z-Type Natriuretic Peptide 443 pg/mL (0-449) Total Protein 6.5 g/dL (6.4-8.2) Albumin 3.2 g/dL (3.4-5.0) Albumin/Globulin Ratio 1.0 (1.0-1.7) Medications Current Medications Sodium Chloride 1,000 ml @ 2,040 mls/hr Q30M IV Last administered on 18:30; Start 08/12/17 at 18:21; Stop 08/12/17 at 19:21; Status DC Levofloxacin/ Dextrose (Levaquin Per Pharmacy) 1 each PRN DAILY PRN MC SEE COMMENTS; Start 08/12/17 at 18:30 Calcium Gluconate (Calcium Gluconate) 2,000 mg 1X ONCE IVP Last administered on 08/12/17 19:12; Start 08/12/17 at 18:30; Stop 08/12/17 at 18:38; Status DC Docusate Sodium (Colace) 200 mg DAILY PO Last administered on 08/13/17 08:34; Start 08/13/17 at 09:00 Dutasteride (Avodart) 0.5 mg DAILY PO Last administered on 08/13/17 08:33; Start 08/13/17 at 09:00 Lamotrigine (LaMICtal) 200 mg DAILY PO Last administered on 08/13/17 08:34; Start 08/13/17 at 09:00 Levothyroxine Sodium (Synthroid) 50 mcg DAILY PO Last administered on 08:34; Start 08/13/17 at 09:00 Vitamin D (Vitamin D3) 2,000 unit DAILY PO Last administered on 08/13/17 08:34 ; Start 08/13/17 at 09:00 Calcium/Vitamin D (Oscal D 250mg/ 125uts) 1 tab [id number] PO Last administered on 08/13/17 09:01; Start 08/13/17 at 08:00 Albuterol/ Ipratropium (Duoneb) 3 ml RTQID NEB ; Start 08/12/17 at 20:00; Status Cancel Guaifenesin (Robitussin Dm) 10 ml PRN Q6HRS PRN PO COUGH; Start 08/12/17 at 18: 45 Levofloxacin/ Dextrose 150 ml @ As Directed STK-MED ONCE IV ; Start 08/12/17 at 18:32; Stop 08/12/17 at 18:33; Status DC Levofloxacin/ Dextrose 150 ml @ 100 mls/hr ONCE ONCE IV Last administered on 08/12/17 19:29; Start 08/12/17 at 18:45; Stop 08/12/17 at 20:14; Status DC Enoxaparin Sodium (Lovenox 40mg Syringe) 40 mg Q24H SQ Last administered on 19:47; Start 08/12/17 at 19:00 Albuterol/ Ipratropium (Duoneb) 3 ml RTQID NEB Last administered on 08/13/17 12:13; Start 08/12/17 at 20:00 Benzonatate (Tessalon Perle) 100 mg CAS012 PO Last administered on 08/13/17 08 :34; Start 08/12/17 at 21:00 Levofloxacin/ Dextrose 50 ml @ 50 mls/hr Q24H IV ; Start 08/13/17 at 19:30; Stop 08/13/17 at 19:30; Status DC Sodium Chloride 1,000 ml @ 100 mls/hr Q10H IV Last administered on 08/13/17 07:44; Start 08/12/17 at 19:41; Stop 08/13/17 at 19:40 Norepinephrine Bitartrate 250 ml @ 0 mls/hr CONT PRN IV SEE I/O RECORD Last administered on 08/13/17 07:45; Start 08/12/17 at 21:00 Vancomycin HCl 250 ml @ 250 mls/hr 1X ONCE IV Last administered on 08/12/17 21:00; Start 08/12/17 at 21:00; Stop 08/12/17 at 21:19; Status DC Vancomycin HCl 1.75 gm/Dextrose 500 ml @ 250 mls/hr 1X ONCE IV Last administered on 08/12/17 21:18; Start 08/12/17 at 22:00; Stop 08/12/17 at 23:59 ; Status DC Vancomycin HCl (Vanco Per Pharmacy) 1 each PRN DAILY PRN MC SEE COMMENTS Last administered on 08/13/17 08:44; Start 08/12/17 at 21:30 Piperacillin Sod/ Tazobactam Sod 3.375 gm/Dextrose 50 ml @ 100 mls/hr Q6HRS IV ; Start 08/13/17 at 08:30; Status Cancel Vancomycin HCl (Vanco Per Pharmacy) 1 each PRN DAILY PRN MC SEE COMMENTS; Start 08/13/17 at 08:15; Stop 08/13/17 at 08:19; Status DC Vancomycin HCl 1 gm/Dextrose 250 ml @ 250 mls/hr Q24H IV ; Start 08/13/17 at 21 :00 Vancomycin HCl 1 each 1X ONCE MC ; Start 08/14/17 at 20:30; Stop 08/14/17 at 20 :31 Piperacillin Sod/ Tazobactam Sod (Zosyn) 3.375 gm Q6HRS IVP Last administered on 08/13/17 09:01; Start 08/13/17 at 08:45 Levofloxacin/ Dextrose 150 ml @ 100 mls/hr Q48H IV ; Start 08/14/17 at 19:00 Active Scripts Active Reported Avodart (Dutasteride) 0.5 Mg Capsule 1 Cap PO DAILY Docusate Sodium 100 Mg Capsule 2 Cap PO DAILY Caltrate 600 + D Tablet (Calcium Carbonate/Vitamin D3) 1 Each Tablet 1 Each PO Vitamin D (Cholecalciferol (Vitamin D3)) 2,000 Unit Capsule 1 Cap PO DAILY Carvedilol 6.25 Mg Tablet 0.5 Tab PO DAILY Lamictal (Lamotrigine) 100 Mg Tablet 2 Tab PO DAILY Levothyroxine Sodium 50 Mcg Tablet 1 Tab PO DAILY Vitals/I & O Vital Sign - Last 24 Hours 08/12/17 08/12/17 08/12/17 08/12/17 17:25 17:45 18:15 18:45 Temp 99.1 99.1 Pulse 95 94 88 80 Resp 26 18 20 20 B/P (MAP) 91/52 (65) 91/52 (65) 75/52 (60) 90/50 (63) Pulse Ox 86 94 95 94 O2 Delivery Room Air Nasal Cannula Nasal Cannula Nasal Cannula O2 Flow Rate 3.0 3.0 3.0 08/12/17 08/12/17 08/12/17 08/12/17 19:15 19:49 20:15 20:20 Temp 98.6 98.6 Pulse 88 81 68 Resp 20 18 22 B/P (MAP) 95/49 (64) 87/52 (64) 86/52 (63) Pulse Ox 95 93 91 O2 Delivery Nasal Cannula Nasal Cannula Nasal Cannula Nasal Cannula O2 Flow Rate 3.0 3.0 2.0 2.0 08/12/17 08/12/17 08/12/17 08/12/17 20:30 20:45 21:00 21:10 Pulse 68 72 70 Resp 22 16 16 B/P (MAP) 78/47 (57) 84/45 (58) 86/54 (65) Pulse Ox 91 89 85 92 O2 Delivery Nasal Cannula Nasal Cannula Nasal Cannula Nasal Cannula O2 Flow Rate 2.0 3.0 3.0 2.0 08/12/17 08/12/17 08/12/17 08/12/17 21:15 21:30 22:00 22:30 Temp 98.6 98.6 Pulse 96 98 94 88 Resp 14 20 20 20 B/P (MAP) 105/61 (76) 83/61 (68) 90/49 (63) 97/42 (60) Pulse Ox 85 89 91 93 O2 Delivery Nasal Cannula Nasal Cannula Nasal Cannula Nasal Cannula O2 Flow Rate 3.0 3.0 3.0 3.0 08/12/17 08/12/17 08/12/17 08/12/17 23:00 23:30 23:59 23:59 Temp 98.0 98.0 Pulse 88 78 90 Resp 22 16 41 B/P (MAP) 90/50 (63) 97/54 (68) 84/40 (55) Pulse Ox 89 92 92 O2 Delivery Nasal Cannula Nasal Cannula Nasal Cannula Nasal Cannula O2 Flow Rate 3.0 3.0 3.0 2.0 08/13/17 08/13/17 08/13/17 08/13/17 00:30 01:39 02:00 03:00 Pulse 84 90 89 85 Resp 16 16 16 16 B/P (MAP) 90/47 (61) 133/57 (82) 121/57 (78) 113/68 (83) Pulse Ox 91 89 90 92 O2 Delivery Nasal Cannula Nasal Cannula Simple Mask Simple Mask O2 Flow Rate 3.0 3.0 6.0 6.0 08/13/17 08/13/17 08/13/17 08/13/17 04:00 04:00 05:00 06:00 Temp 100.0 100.0 Pulse 83 96 96 Resp 24 16 16 B/P (MAP) 122/57 (78) 111/53 (72) 104/63 (77) Pulse Ox 93 93 93 O2 Delivery Simple Mask Nasal Cannula Simple Mask Simple Mask O2 Flow Rate 6.0 2.0 6.0 6.0 08/13/17 08/13/17 08/13/17 08/13/17 07:29 07:57 08:00 08:15 Pulse 82 84 Resp 26 16 B/P (MAP) 112/60 (77) 123/51 (75) Pulse Ox 92 93 92 O2 Delivery Simple Mask Simple Mask Simple Mask Nasal Cannula O2 Flow Rate 6.0 7.0 6.0 3.0 08/13/17 08/13/17 08/13/17 08/13/17 09:00 10:10 11:13 11:55 Pulse 74 75 85 Resp 26 24 25 B/P (MAP) 101/45 (63) 95/56 (69) 76/56 (63) Pulse Ox 88 92 92 O2 Delivery Nasal Cannula Nasal Cannula Nasal Cannula Nasal Cannula O2 Flow Rate 3.0 3.0 3.0 3.0 08/13/17 08/13/17 08/13/17 12:23 12:26 13:00 Pulse 66 69 Resp 19 26 B/P (MAP) 102/59 (73) 117/52 (73) Pulse Ox 90 93 94 O2 Delivery Nasal Cannula Nasal Cannula Nasal Cannula O2 Flow Rate 3.0 3.0 3.0 Intake and Output 08/13/17 08/13/17 08/14/17 14:59 22:59 06:59 Intake Total 50 ml Output Total 1 ml Balance 49 ml PADMININIAL K III DO Aug 13, 2017 13:45
[2017-08-13] MEDS: ENOXAPARIN 40 MG/0.4 ML SYRINGE. SQ SCH (18:03)
[2017-08-13] MEDS ORDERED: diphenhydrAMINE HCL 25 MG CAPSULE PO PRN (19:45)
[2017-08-13] MEDS: VANCOMYCIN 1 GM in IV DEXTROSE 5% 250 ML IV SCH (20:55)
--- NOTE | 2017-08-13 21:00 | CONS ---
DATE OF CONSULTATION: 08/13/2017 REFERRING PHYSICIAN: Letitia Sykes M.D. ROOM NUMBER: ICU 3. CHIEF COMPLAINT: Shortness of breath. SOURCE: Chart review, nurse and the patient. HISTORY OF PRESENT ILLNESS: 87-year-old male who lives at home with his family and history of dementia ( no family in the room during my visit )but per report from the nurse, the patient was admitted through ER on 08/12/2017 with complaints of shortness of breath and chest pain of one day duration. He did not have any history of known fever, nausea, vomiting and diarrhea but was coughing with sputum production and was found to have low saturation on oxygen on arrival at ED. The patient is not on any home O2. No history of smoking. The patient was hypotensive with high lactate and chest x-ray revealed right-sided infiltrate, so the patient was started on community-acquired pneumonia coverage with IV vancomycin,Zosyn and Levaquin and currently getting sepsis protocol with fluid challenge. Lactate was high at 5 with normal WBC count. Today, the patient remains on Levophed. He is not a good historian. Does say he continues to have a cough with shortness of breath. The patient is on BiPAP, currently appears comfortable. He denies any chest pain, fever, chills, night sweats, nausea, vomiting, diarrhea, abdominal pain and swelling in the legs. PAST MEDICAL HISTORY: Hypertension and hypothyroidism. PAST SURGICAL HISTORY: No pertinent history. FAMILY HISTORY: As per H and P. SOCIAL HISTORY: The patient lives at home. No smoking. No alcohol. No drugs reported. ALLERGIES: No known drug allergies. CURRENT MEDICATIONS: The patient got a dose of Levaquin and IV vancomycin in the ER per nursing. Current inpatient medication reviewed. REVIEW OF SYSTEMS: Limited as above with history of dementia. PHYSICAL EXAMINATION: VITAL SIGNS: Temperature 100, pulse 83, respiratory rate 24, blood pressure 122/57 on Levophed, oxygen saturation increased to simple mask for 6 with oxygen saturation of 92%. GENERAL: Alert and oriented x 3, cooperative male, in mild distress. The patient is hard of hearing. HEENT: Nonicteric. No petechiae. Normocephalic and atraumatic. Oral mucosa moist. NECK: Supple. No JVD. LUNGS: Decreased breath sounds at the bases, more on the right side. No wheezing. CARDIOVASCULAR: S1 and S2 present. No murmurs appreciated. Sinus tachycardia. ABDOMEN: Soft. Bowel sounds present. No masses felt. Nontender. EXTREMITIES: No cyanosis, no edema and no clubbing. DERMATOLOGY: Mild skin infiltration of the IV, right upper extremity and no evidence of any lymphatic cords felt. No generalized rash. No open skin wounds noted. NEUROLOGICAL: Alert and oriented x 3. Grossly nonfocal. PSYCHIATRIC: Normal mental status. Mood appropriate. LABORATORY DATA: WBC 7.3, hemoglobin 14.6, hematocrit 43.2, platelet of 180, neutrophil count of 80 and lymphocyte of 15. Sodium 136, potassium 4.6, chloride 103, bicarbonate 19, BUN 28 and creatinine 1.3. Calcium 7.3, total bilirubin 0.5, AST 21, ALT 19, alkaline phosphatase 71, total protein 6.5 and albumin 3.2. Troponin less than 0.17. BNP 443. Lactic acid 5.3, currently come down to 4.2 and now at 4.3. RADIOLOGICAL DATA: Chest x-ray shows a right lower lobe infiltrate. Official report pending at this time. ASSESSMENT: 1. Sepsis with hypotension on pressors from PNA 2. Right lower lobe infiltrate. 3. History of dementia. 4. History of hypertension. 5. History of hypothyroidism. 6. Elevated lactate. 7. Hypoxic respiratory failure secondary to chronic obstructive pulmonary disease. 8. Hard of hearing. 9. Right upper extremity superficial thrombophlebitis.at piv site RECOMMENDATIONS: 1. Continue empiric IV vancomycin ,zosyn and Levaquin. 2.F/U blood cultures and sputum cultures. 2. Follow up labs 4. DC peripheral line. 5. Elevate the right upper extremity. 6. Monitor the area closely. Local care wtih cold or warm compresses as needed. Thank you, Dr. Sykes for consulting Infectious Disease to participate in this patient's care. We will continue to follow along with you. JHOAN YADAV MD DR: NICOLAS/victoria JOB#: [id number] / [id number]
[2017-08-13] MEDS ORDERED: ZOLPIDEM 5 MG TABLET. PO ONE (21:30)
[2017-08-14] VITALS (19 sets, daily range): BP systolic 90–149; BP diastolic 34–93
--- NOTE | 2017-08-14 00:36 | CONS ---
DATE OF CONSULTATION: 08/13/2017 ATTENDING PHYSICIAN: Dr. Letitia Sykes. REASON FOR CONSULTATION: The patient is seen in pulmonary consultation at the request of Dr. Sykes for shortness of air, abnormal x-ray, sepsis. HISTORY OF PRESENT ILLNESS: The patient is an 87-year-old male who has short-term memory loss, lives with his daughter as there is no one available at this time. He was brought to the Emergency Department with complaints of shortness of breath and chest pain. The daughter noticed sudden onset of symptoms. She called the EMS. Daughter reported that patient normally is not complaining of any shortness of breath or chest pain. He has a history of dementia. He is currently in the Intensive Care Unit. He is off of pressors. He is awake, alert, knows his name and date of . He recalls remote events, but not anything from yesterday. Denies any productive cough. He quit tobacco in 1952, does not utilize oxygen at home. Denies any chest pain or pressure. No cough. No fever, chills or night sweats. PAST MEDICAL HISTORY: Dementia; hypertension; hypothyroidism; seizures; tobacco history, in remission since 1952. PAST SURGICAL HISTORY: No recent major surgeries. FAMILY HISTORY: Hypertension. SOCIAL HISTORY: He has worked at [employer] for many years. Denies any alcohol or tobacco use. REVIEW OF SYSTEMS: As indicated above. Otherwise, other systems could not be adequately reviewed as a consequence of the patient's dementia. PHYSICAL EXAMINATION: GENERAL: The patient was in the Intensive Care Unit. He is currently receiving IV fluids. He is off of vasopressors. VITAL SIGNS: Stable. Yesterday, his blood pressure 75/52, his heart rate was elevated, temperature was 100. HEENT: Eyes: The sclerae were nonicteric. NECK: Jugular venous distention was not elevated. No lymphadenopathy. CHEST: Full expansion. LUNGS: Crackles in the bases. No wheezes. CARDIOVASCULAR: Regular rate and rhythm with S1, S2, no S3. ABDOMEN: Soft, nontender, nondistended. EXTREMITIES: No clubbing, cyanosis or edema. NEUROLOGIC: The patient was awake, alert, following commands. A detailed neuro exam was not performed. Chest x-ray was reviewed. There is infiltrate in the right lower lobe. LABORATORY DATA: White count was noted to be normal, hemoglobin and hematocrit noted. Electrolytes were noted. IMPRESSION: 1. Abnormal x-ray compatible with pneumonia, suspect gram negative. 2. Septic shock, improved with IV fluids and norepinephrine. 3. Mild protein malnutrition, present upon admission. 4. Tobacco abuse, in remission. 5. Hypothyroidism. 6. Dementia. 7. Acute toxic encephalopathy, present upon admission. PLAN: 1. We will continue current medical management. The patient has been seen in consultation by the Infectious Disease Services, currently being covered for the possibility of gram-positive and gram-negative pneumonia. 2. Wean off of norepinephrine. 3. Continue IV fluids. 4. Repeat lactic acid level. 5. DVT and GI prophylaxis. 6. Dietary consultation for protein malnutrition. I do appreciate the privilege in sharing in the patient's care. Total cumulative critical care time of 45 minutes. LONNIE MEREDITH MD DR: SEPIDEH/victoria JOB#: [id number] / [id number]
[2017-08-14] MEDS: PIPERACILLIN/TAZO IV Push 3.375 GM VIAL. IVP SCH ×4 (00:50→18:14)
[2017-08-14] MEDS: NOREPINEPHRIN PREMIX 250 ML IV PRN ×2 (05:52→19:46)
--- NOTE | 2017-08-14 08:11 | PDOC ---
Infectious Disease Note Subjective Subjective pt restarted on levophed again this am pt says he feels better, less cough and sob some abdo discomfort one loose bm no n/v/d/f/c ROS ROS as above Vital Sign Vital Signs Vital Signs Date Time Temp Pulse Resp B/P (MAP) Pulse Ox O2 Delivery O2 Flow Rate FiO2 08/14/17 04:00 90 31 98/52 (67) 88 Nasal Cannula 6.0 08/13/17 19:00 98.0 98.0 Physical Exam PHYSICAL EXAM GENERAL: NAD, Alert hard of hearing, on nrb HEENT: anicteric NECK: Supple, no JVD, no LN LUNGS: dec bs at bases, HEART: S1S2, no gallop, no murmur ABD: Soft, NT,ND, no organomegaly, no rebound EXT: No edema, no cyanosis COMBER SETTER: Alert, no focal neurologic deficit SKIN: No rash IV: ok Labs Lab reviewed Micro BC neg Objective Assessment 1. Sepsis with hypotension on pressors. 2. Right lower lobe infiltrate. 3. History of dementia. 4. History of hypertension. 5. History of hypothyroidism. 6. Elevated lactate. 7. Hypoxic respiratory failure secondary to chronic obstructive pulmonary disease. 8. Hard of hearing. 9. Right upper extremity superficial line thrombophlebitis. Plan Plan of Care 1. Continue empiric IV vancomycin ,zosyn and Levaquin. will taper soon depending on clinical condition vanc per phar protocol 2.F/U blood cultures and sputum cultures. 2. Follow up labs 5. local care of right upper extremity. JHOAN YADAV MD Aug 14, 2017 08:11
[2017-08-14] MEDS: IPRATRPIUM/ALBUTEROL 0.5/2.5MG 3 ML NEBU. NEB SCH ×3 (08:39→15:20)
[2017-08-14] MEDS: BENZONATATE 100 MG CAPSULE. PO SCH ×3 (09:03→21:20)
[2017-08-14] MEDS: CALCIUM CARB/VIT D3 250/125 TABLET. PO SCH (09:03)
[2017-08-14] MEDS: LEVOTHYROXINE 50 MCG TABLET PO SCH (09:03)
[2017-08-14] MEDS: DOCUSATE SODIUM 100 MG CAPSULE. PO SCH (09:03)
[2017-08-14] MEDS: lamoTRIgine 100 MG TABLET. PO SCH (09:03)
[2017-08-14] MEDS: DUTASTERIDE 0.5 MG CAPSULE PO SCH (09:03)
[2017-08-14] MEDS: CHOLECALCIFEROL (VITAMIN D3) 1,000 UNIT TABLET PO SCH (09:03)
[2017-08-14] MEDS: IV NORMAL SALINE 1000ML BAG 1,000 ML IV SCH ×2 (09:04→18:15)
--- NOTE | 2017-08-14 12:22 | PDOC ---
PROGRESS NOTES Chief Complaint Chief Complaint 1. CAP 2. Severe sepsis with HYPOTENSION, infectious 3. Dementia 4. 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 HYPOTENSION 7. HYPOthyroidism - on synthroid 8. Elevated lactate\ 9. Hypoxic respi failure sec to CAP History of Present Illness History of Present Illness Pt seen at bedside in ICU, in NAD. Per RN, BP has been controlled today, Levophed now titrated to 7mcg, fluids at 100cc/hr. Is not receiving O2 by NC today, no c/o SOA and no aparent SOA while conversing. Vitals Vitals Vital Signs Date Time Temp Pulse Resp B/P (MAP) Pulse Ox O2 Delivery O2 Flow Rate FiO2 08/14/17 11:41 Nasal Cannula 2.0 08/14/17 08:39 93 08/14/17 04:00 90 31 98/52 (67) 08/13/17 19:00 98.0 98.0 Physical Exam General: Alert, Oriented X3, Cooperative, No acute distress, Other (hRD Of hearing too) Abdomen: Normal bowel sounds, Soft, No tenderness, No hepatosplenomegaly, No masses Extremities: No clubbing, No cyanosis, No edema, Normal pulses, No tenderness/ swelling Skin: No rashes, No breakdown, No significant lesion Review of Systems Review of Systems AOCx3, in NAD. Normal bowel function. No CP. No SOB. No c/c/e of distal extremities. Assessment and Plan Assessmemt and Plan Problems Medical Problems: (1) Community acquired pneumonia Status: Acute (2) Dementia Status: Acute (3) Lactic acidosis Status: Acute (4) Severe sepsis Status: Acute acute hypoxic respiratory failure ARDS sepsis 1. 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 s/p NS on . recovering appropriately. dressing changes as per NS; DUONG d/c.ed today 2. MRSA bacteremia: same as wound cult. on dapto. PICC for [facility] Abx 3. Renal mass vs abscess: bx recommended; consider rpt CT in near future, dedicated renal , to r/o RCC 4. Facial swelling: w/o angioedema/globus/stridor; initially suspected to be allergic rxn to ALISA-I; ? 2/2 infection 5. MANNY on CKD3: back to baseline creat. renal following 6. HTN: better controlled on increased BB. ALISA-I remains on hold. 7. DM2: improved control with home metformin and increased levemir. cont ISS 8. Schizophrenia: continue home meds! 9. Agitation: better w/ IM geodon and now on Precedex with good results. 10. SNU resident PLAN: Continue ICU monitoring Wean off Levophed Continue advancing diet Continue PRN O2 by NC PT/OT Problems: Comment Review of Relevant I have reviewed the following items emmanuel (where applicable) has been applied. Labs Laboratory Tests Test 08/12/17 17:45 08/12/17 20:30 08/12/17 23:45 08/13/17 05:25 White Blood Count 7.3 x10^3/uL (4.0-11.0) Red Blood Count 4.66 x10^6/uL (4.30-5.70) Hemoglobin 14.6 g/dL (13.0-17.5) Hematocrit 43.2 % (39.0-53.0) Mean Corpuscular Volume 93 fL (79-100) Mean Corpuscular Hemoglobin 31 pg (25-35) Mean Corpuscular Hemoglobin Concent 34 g/dL (31-37) Red Cell Distribution Width 14.0 % (11.5-14.5) Platelet Count 180 x10^3/uL (140-400) Neutrophils (%) (Auto) 80 % (31-73) Lymphocytes (%) (Auto) 15 % (24-48) Monocytes (%) (Auto) 4 % (0-9) Eosinophils (%) (Auto) 0 % (0-3) Basophils (%) (Auto) 1 % (0-3) Neutrophils # (Auto) 5.8 x10^3uL (1.8-7.7) Lymphocytes # (Auto) 1.1 x10^3/uL (1.0-4.8) Monocytes # (Auto) 0.3 x10^3/uL (0.0-1.1) Eosinophils # (Auto) 0.0 x10^3/uL (0.0-0.7) Basophils # (Auto) 0.0 x10^3/uL (0.0-0.2) Sodium Level 136 mmol/L (136-145) Potassium Level 4.6 mmol/L (3.5-5.1) Chloride Level 103 mmol/L (98-107) Carbon Dioxide Level 19 mmol/L (21-32) Anion Gap 14 (6-14) Blood Urea Nitrogen 28 mg/dL (8-26) Creatinine 1.3 mg/dL (0.7-1.3) Estimated GFR (Cockcroft-Gault) 52.1 BUN/Creatinine Ratio 22 (6-20) Glucose Level 99 mg/dL (70-99) Lactic Acid Level 5.3 mmol/L (0.4-2.0) 4.2 mmol/L (0.4-2.0) 4.7 mmol/L (0.4-2.0) Calcium Level 7.3 mg/dL (8.5-10.1) Total Bilirubin 0.5 mg/dL (0.2-1.0) Aspartate Amino Transf (AST/SGOT) 21 U/L (15-37) Alanine Aminotransferase (ALT/SGPT) 19 U/L (16-63) Alkaline Phosphatase 71 U/L (46-116) Creatine Kinase 117 U/L (39-308) Creatine Kinase MB (Mass) 1.3 ng/mL (0.0-3.6) Creatine Kinase MB Relative Index 1.1 % (0-4) Troponin I Quantitative < 0.017 ng/mL (0.000-0.055) GQ-Cjh-S-Type Natriuretic Peptide 443 pg/mL (0-449) Total Protein 6.5 g/dL (6.4-8.2) Albumin 3.2 g/dL (3.4-5.0) Albumin/Globulin Ratio 1.0 (1.0-1.7) Nasal Screen MRSA (PCR) Negative (Negative) Microbiology 08/12/17 Blood Culture - Preliminary, Resulted NO GROWTH AFTER 1 DAY Medications Current Medications Sodium Chloride 1,000 ml @ 2,040 mls/hr Q30M IV Last administered on t 18:30; Start 08/12/17 at 18:21; Stop 08/12/17 at 19:21; Status DC Levofloxacin/ Dextrose (Levaquin Per Pharmacy) 1 each PRN DAILY PRN MC SEE COMMENTS; Start 08/12/17 at 18:30; Stop 08/14/17 at 08:56; Status DC Calcium Gluconate (Calcium Gluconate) 2,000 mg 1X ONCE IVP Last administered on 08/12/17 19:12; Start 08/12/17 at 18:30; Stop 08/12/17 at 18:38; Status DC Docusate Sodium (Colace) 200 mg DAILY PO Last administered on 08/14/17 09:03; Start 08/13/17 at 09:00 Dutasteride (Avodart) 0.5 mg DAILY PO Last administered on 08/14/17 09:03; Start 08/13/17 at 09:00 Lamotrigine (LaMICtal) 200 mg DAILY PO Last administered on 08/14/17 09:03; Start 08/13/17 at 09:00 Levothyroxine Sodium (Synthroid) 50 mcg DAILY PO Last administered on 09:03; Start 08/13/17 at 09:00 Vitamin D (Vitamin D3) 2,000 unit DAILY PO Last administered on 08/14/17 09:03 ; Start 08/13/17 at 09:00 Calcium/Vitamin D (Oscal D 250mg/ 125uts) 1 tab [id number] PO Last administered on 08/14/17 09:03; Start 08/13/17 at 08:00 Albuterol/ Ipratropium (Duoneb) 3 ml RTQID NEB ; Start 08/12/17 at 20:00; Status Cancel Guaifenesin (Robitussin Dm) 10 ml PRN Q6HRS PRN PO COUGH; Start 08/12/17 at 18: 45 Levofloxacin/ Dextrose 150 ml @ As Directed STK-MED ONCE IV ; Start 08/12/17 at 18:32; Stop 08/12/17 at 18:33; Status DC Levofloxacin/ Dextrose 150 ml @ 100 mls/hr ONCE ONCE IV Last administered on 08/12/17 19:29; Start 08/12/17 at 18:45; Stop 08/12/17 at 20:14; Status DC Enoxaparin Sodium (Lovenox 40mg Syringe) 40 mg Q24H SQ Last administered on 18:03; Start 08/12/17 at 19:00 Albuterol/ Ipratropium (Duoneb) 3 ml RTQID NEB Last administered on 08/14/17 11:40; Start 08/12/17 at 20:00 Benzonatate (Tessalon Perle) 100 mg [id number] PO Last administered on 08/14/17 09 :03; Start 08/12/17 at 21:00 Levofloxacin/ Dextrose 50 ml @ 50 mls/hr Q24H IV ; Start 08/13/17 at 19:30; Stop 08/13/17 at 19:30; Status DC Sodium Chloride 1,000 ml @ 100 mls/hr Q10H IV Last administered on 08/13/17 07:44; Start 08/12/17 at 19:41; Stop 08/13/17 at 19:40; Status DC Norepinephrine Bitartrate 250 ml @ 0 mls/hr CONT PRN IV SEE I/O RECORD Last administered on 08/14/17 05:52; Start 08/12/17 at 21:00 Vancomycin HCl 250 ml @ 250 mls/hr 1X ONCE IV Last administered on 08/12/17 21:00; Start 08/12/17 at 21:00; Stop 08/12/17 at 21:19; Status DC Vancomycin HCl 1.75 gm/Dextrose 500 ml @ 250 mls/hr 1X ONCE IV Last administered on 08/12/17 21:18; Start 08/12/17 at 22:00; Stop 08/12/17 at 23:59 ; Status DC Vancomycin HCl (Vanco Per Pharmacy) 1 each PRN DAILY PRN MC SEE COMMENTS Last administered on 08/13/17 08:44; Start 08/12/17 at 21:30 Piperacillin Sod/ Tazobactam Sod 3.375 gm/Dextrose 50 ml @ 100 mls/hr Q6HRS IV ; Start 08/13/17 at 08:30; Status Cancel Vancomycin HCl (Vanco Per Pharmacy) 1 each PRN DAILY PRN MC SEE COMMENTS; Start 08/13/17 at 08:15; Stop 08/13/17 at 08:19; Status DC Vancomycin HCl 1 gm/Dextrose 250 ml @ 250 mls/hr Q24H IV Last administered on 08/13/17 20:55; Start 08/13/17 at 21:00 Vancomycin HCl 1 each 1X ONCE MC ; Start 08/14/17 at 20:30; Stop 08/14/17 at 20 :31 Piperacillin Sod/ Tazobactam Sod (Zosyn) 3.375 gm Q6HRS IVP Last administered on 08/14/17 05:31; Start 08/13/17 at 08:45 Levofloxacin/ Dextrose 150 ml @ 100 mls/hr Q48H IV ; Start 08/14/17 at 19:00 Diphenhydramine HCl (Benadryl) 25 mg PRN Q6HRS PRN PO ITCHING Last administered on 08/13/17 19:57; Start 08/13/17 at 19:45 Zolpidem Tartrate (Ambien) 5 mg 1X ONCE PO ; Start 08/13/17 at 21:30; Stop 08/13/17 at 21:31; Status DC Sodium Chloride 1,000 ml @ 100 mls/hr Q10H IV Last administered on 08/14/17 09:04; Start 08/14/17 at 08:00 Active Scripts Active Reported Avodart (Dutasteride) 0.5 Mg Capsule 1 Cap PO DAILY Docusate Sodium 100 Mg Capsule 2 Cap PO DAILY Caltrate 600 + D Tablet (Calcium Carbonate/Vitamin D3) 1 Each Tablet 1 Each PO Vitamin D (Cholecalciferol (Vitamin D3)) 2,000 Unit Capsule 1 Cap PO DAILY Carvedilol 6.25 Mg Tablet 0.5 Tab PO DAILY Lamictal (Lamotrigine) 100 Mg Tablet 2 Tab PO DAILY Levothyroxine Sodium 50 Mcg Tablet 1 Tab PO DAILY Vitals/I & O Vital Sign - Last 24 Hours 08/13/17 08/13/17 08/13/17 08/13/17 12:23 12:26 13:00 14:20 Temp 98.4 98.4 Pulse 66 69 69 Resp 19 26 26 B/P (MAP) 102/59 (73) 117/52 (73) 95/46 (62) Pulse Ox 90 93 94 92 O2 Delivery Nasal Cannula Nasal Cannula Nasal Cannula Nasal Cannula O2 Flow Rate 3.0 3.0 3.0 4.0 08/13/17 08/13/17 08/13/17 08/13/17 15:32 19:00 20:00 20:39 Temp 98.0 98.0 Pulse 81 Resp 26 B/P (MAP) 112/68 (83) Pulse Ox 94 93 O2 Delivery Nasal Cannula Nasal Cannula Nasal Cannula Nasal Cannula O2 Flow Rate 4.0 4.0 3.0 4.0 08/13/17 08/14/17 08/14/17 08/14/17 23:00 04:00 08:39 11:41 Pulse 74 90 Resp 26 31 B/P (MAP) 100/51 (67) 98/52 (67) Pulse Ox 95 88 93 O2 Delivery Nasal Cannula Nasal Cannula Simple Mask Nasal Cannula O2 Flow Rate 4.0 6.0 6.0 2.0 DAINA WASHINGTON III DO Aug 14, 2017 12:22
[2017-08-14] MEDS: VANCOMYCIN PER PHARMACY MC PRN ×2 (14:03→23:02)
--- NOTE | 2017-08-14 14:21 | PDOC ---
PULMONARY PROGRESS NOTES Subjective PT WITH NO COMPLAINT NOT MORE SOA Vitals Vital Signs Date Time Temp Pulse Resp B/P (MAP) Pulse Ox O2 Delivery O2 Flow Rate FiO2 08/14/17 11:41 Nasal Cannula 2.0 08/14/17 08:39 93 08/14/17 04:00 90 31 98/52 (67) 08/13/17 19:00 98.0 98.0 ROS: No Nausea, No Chest Pain, No Abdominal Pain, No Increase Cough Lungs: Crackles Cardiovascular: S1, S2 Abdomen: Soft, Non-tender Neuro Exam: Alert Extremities: No Edema Skin: Warm Labs Laboratory Tests Test 08/12/17 17:45 08/12/17 20:30 08/12/17 23:45 08/13/17 05:25 White Blood Count 7.3 x10^3/uL (4.0-11.0) Red Blood Count 4.66 x10^6/uL (4.30-5.70) Hemoglobin 14.6 g/dL (13.0-17.5) Hematocrit 43.2 % (39.0-53.0) Mean Corpuscular Volume 93 fL (79-100) Mean Corpuscular Hemoglobin 31 pg (25-35) Mean Corpuscular Hemoglobin Concent 34 g/dL (31-37) Red Cell Distribution Width 14.0 % (11.5-14.5) Platelet Count 180 x10^3/uL (140-400) Neutrophils (%) (Auto) 80 % (31-73) Lymphocytes (%) (Auto) 15 % (24-48) Monocytes (%) (Auto) 4 % (0-9) Eosinophils (%) (Auto) 0 % (0-3) Basophils (%) (Auto) 1 % (0-3) Neutrophils # (Auto) 5.8 x10^3uL (1.8-7.7) Lymphocytes # (Auto) 1.1 x10^3/uL (1.0-4.8) Monocytes # (Auto) 0.3 x10^3/uL (0.0-1.1) Eosinophils # (Auto) 0.0 x10^3/uL (0.0-0.7) Basophils # (Auto) 0.0 x10^3/uL (0.0-0.2) Sodium Level 136 mmol/L (136-145) Potassium Level 4.6 mmol/L (3.5-5.1) Chloride Level 103 mmol/L (98-107) Carbon Dioxide Level 19 mmol/L (21-32) Anion Gap 14 (6-14) Blood Urea Nitrogen 28 mg/dL (8-26) Creatinine 1.3 mg/dL (0.7-1.3) Estimated GFR (Cockcroft-Gault) 52.1 BUN/Creatinine Ratio 22 (6-20) Glucose Level 99 mg/dL (70-99) Lactic Acid Level 5.3 mmol/L (0.4-2.0) 4.2 mmol/L (0.4-2.0) 4.7 mmol/L (0.4-2.0) Calcium Level 7.3 mg/dL (8.5-10.1) Total Bilirubin 0.5 mg/dL (0.2-1.0) Aspartate Amino Transf (AST/SGOT) 21 U/L (15-37) Alanine Aminotransferase (ALT/SGPT) 19 U/L (16-63) Alkaline Phosphatase 71 U/L (46-116) Creatine Kinase 117 U/L (39-308) Creatine Kinase MB (Mass) 1.3 ng/mL (0.0-3.6) Creatine Kinase MB Relative Index 1.1 % (0-4) Troponin I Quantitative < 0.017 ng/mL (0.000-0.055) RE-Txm-P-Type Natriuretic Peptide 443 pg/mL (0-449) Total Protein 6.5 g/dL (6.4-8.2) Albumin 3.2 g/dL (3.4-5.0) Albumin/Globulin Ratio 1.0 (1.0-1.7) Nasal Screen MRSA (PCR) Negative (Negative) Medications Active Scripts Medications Dose Route/Sig Max Daily Dose Days Date Category Avodart (Dutasteride) 0.5 Mg Capsule 1 Cap PO DAILY 08/12/17 Reported Docusate Sodium 100 Mg Capsule 2 Cap PO DAILY 08/12/17 Reported Caltrate 600 + D Tablet (Calcium Carbonate/Vitamin D3) 1 Each Tablet 1 Each PO 08/12/17 Reported Vitamin D (Cholecalciferol (Vitamin D3)) 2,000 Unit Capsule 1 Cap PO DAILY 08/12/17 Reported Carvedilol 6.25 Mg Tablet 0.5 Tab PO DAILY 08/12/17 Reported Lamictal (Lamotrigine) 100 Mg Tablet 2 Tab PO DAILY 08/12/17 Reported Levothyroxine Sodium 50 Mcg Tablet 1 Tab PO DAILY 08/12/17 Reported Impression . 1. Abnormal x-ray compatible with pneumonia, suspect gram negative. 2. Septic shock, improved with IV fluids and norepinephrine. 3. Mild protein malnutrition, present upon admission. 4. Tobacco abuse, in remission. 5. Hypothyroidism. 6. Dementia. 7. Acute toxic encephalopathy, present upon admission. . Plan . 1. Currently being covered for the possibility of gram-positive and gram- negative pneumonia. 2. Wean off of norepinephrine. 3. Continue IV fluids bolus 4. Repeat lactic acid level. 5. DVT and GI prophylaxis. 6. Dietary consultation for protein malnutrition. LONNIE Cheatham MD Aug 14, 2017 14:21
[2017-08-14 14:43] LABS: HEMATOCRIT 42.1 % (39.0-53.0); HEMOGLOBIN 14.1 g/dL (13.0-17.5); RED BLOOD COUNT 4.54 x10^6/uL (4.30-5.70); RED CELL DISTRIBUTION WIDTH 14.4 % (11.5-14.5); WHITE BLOOD COUNT 17.8 x10^3/uL (4.0-11.0)
[2017-08-14 15:13] LABS: CALCIUM 7.5 mg/dL (8.5-10.1); CREATININE 1.7 mg/dL (0.7-1.3); GFR 38.2; POTASSIUM 3.7 mmol/L (3.5-5.1)
--- NOTE | 2017-08-14 16:37 | RAD ---
Portable AP upright chest x-ray performed at 1533 History: Pneumonia. Follow-up study. Comparison: August 12, 2017. Findings: Increasing right lower lobe and right midlung zone consolidation is seen. Increase in left lung base consolidation is evident. New small bilateral pleural effusions are evident. Findings could reflect worsening aspiration pneumonitis or worsening pneumonia or new development of superimposed CHF. Heart size and mediastinum are stable. No pneumothorax is evident. IMPRESSION: Worsening bilateral lung infiltrates and developing small bilateral pleural effusions.
[2017-08-14] MEDS ORDERED: IV NORMAL SALINE 500ML BAG 500 ML IV ONE (19:00)
[2017-08-14] MEDS: LORazepam 1 MG TABLET PO PRN ×2 (19:36→21:14)
[2017-08-14] MEDS: ENOXAPARIN 40 MG/0.4 ML SYRINGE. SQ SCH (19:46)
[2017-08-14] MEDS: LACTOBACILLUS RHAMNOSUS GG 1 CAPSULE. PO SCH (21:20)
[2017-08-14] MEDS: VANCOMYCIN 1 GM in IV DEXTROSE 5% 250 ML IV SCH (21:21)
[2017-08-15] VITALS (23 sets, daily range): BP systolic 92–155; BP diastolic 44–83
[2017-08-15] MEDS: PIPERACILLIN/TAZO IV Push 3.375 GM VIAL. IVP SCH ×2 (00:26→05:28)
[2017-08-15] MEDS: LORazepam 1 MG TABLET PO PRN ×2 (03:15→13:42)
[2017-08-15] MEDS: IV NORMAL SALINE 1000ML BAG 1,000 ML IV SCH ×2 (04:00→14:00)
[2017-08-15 06:48] LABS: CREATININE 1.6 mg/dL (0.7-1.3); POTASSIUM 3.6 mmol/L (3.5-5.1)
[2017-08-15 06:49] LABS: BASO % 0 % (0-3); EOS % 0 % (0-3); HEMATOCRIT 40.5 % (39.0-53.0); HEMOGLOBIN 13.6 g/dL (13.0-17.5); LYMPH # 2.2 x10^3/uL (1.0-4.8); LYMPH % 14 % (24-48); MEAN CORPUSCULAR HEMOGLOBIN 31 pg (25-35); MEAN CORPUSCULAR HGB CONC 34 g/dL (31-37); MEAN CORPUSCULAR VOLUME 93 fL (79-100); MONO % 7 % (0-9); NEUT % 79 % (31-73); PLATELET COUNT 143 x10^3/uL (140-400); RED BLOOD COUNT 4.35 x10^6/uL (4.30-5.70); RED CELL DISTRIBUTION WIDTH 14.4 % (11.5-14.5); WHITE BLOOD COUNT 15.8 x10^3/uL (4.0-11.0)
[2017-08-15] MEDS: IPRATRPIUM/ALBUTEROL 0.5/2.5MG 3 ML NEBU. NEB SCH ×4 (07:58→19:50)
[2017-08-15] MEDS ORDERED: FUROSEMIDE 20 MG/2 ML VIAL. IVP ONE (08:30)
--- NOTE | 2017-08-15 08:52 | PDOC ---
Infectious Disease Note Subjective Subjective pt more sob this am, somewhat confused, been tapered off pressors on bipap no n/v/d/f/c/ ROS ROS on bipap Vital Sign Vital Signs Vital Signs Date Time Temp Pulse Resp B/P (MAP) Pulse Ox O2 Delivery O2 Flow Rate FiO2 08/15/17 07:58 96 partial rebreather 10.0 08/15/17 06:00 73 33 114/68 (83) 08/15/17 04:00 98.6 98.6 Physical Exam PHYSICAL EXAM GENERAL:tired appearing male , some sob,awake HEENT: anicteric, NECK: Supple,+ JVP LUNGS: coarse bs HEART: S1S2, ABD: Soft, NT, ND,BS+ CRADLE PLACER: Alert, awake SKIN: No gen rash IV: ok Labs Lab Laboratory Tests Test 08/14/17 14:35 08/14/17 20:35 08/15/17 05:15 White Blood Count 17.8 x10^3/uL (4.0-11.0) 15.8 x10^3/uL (4.0-11.0) Red Blood Count 4.54 x10^6/uL (4.30-5.70) 4.35 x10^6/uL (4.30-5.70) Hemoglobin 14.1 g/dL (13.0-17.5) 13.6 g/dL (13.0-17.5) Hematocrit 42.1 % (39.0-53.0) 40.5 % (39.0-53.0) Mean Corpuscular Volume 93 fL (79-100) 93 fL (79-100) Mean Corpuscular Hemoglobin 31 pg (25-35) 31 pg (25-35) Mean Corpuscular Hemoglobin Concent 34 g/dL (31-37) 34 g/dL (31-37) Red Cell Distribution Width 14.4 % (11.5-14.5) 14.4 % (11.5-14.5) Platelet Count 162 x10^3/uL (140-400) 143 x10^3/uL (140-400) Sodium Level 142 mmol/L (136-145) 143 mmol/L (136-145) Potassium Level 3.7 mmol/L (3.5-5.1) 3.6 mmol/L (3.5-5.1) Chloride Level 109 mmol/L (98-107) 111 mmol/L (98-107) Carbon Dioxide Level 19 mmol/L (21-32) 19 mmol/L (21-32) Anion Gap 14 (6-14) 13 (6-14) Blood Urea Nitrogen 31 mg/dL (8-26) 27 mg/dL (8-26) Creatinine 1.7 mg/dL (0.7-1.3) 1.6 mg/dL (0.7-1.3) Estimated GFR (Cockcroft-Gault) 38.2 41.0 Glucose Level 101 mg/dL (70-99) 111 mg/dL (70-99) Calcium Level 7.5 mg/dL (8.5-10.1) 7.0 mg/dL (8.5-10.1) Vancomycin Level Trough 13.4 mcg/mL (10.0-20.0) Vancomycin Last Dose Date 08/13/17 Vancomycin Last Dose Time 2100 Neutrophils (%) (Auto) 79 % (31-73) Lymphocytes (%) (Auto) 14 % (24-48) Monocytes (%) (Auto) 7 % (0-9) Eosinophils (%) (Auto) 0 % (0-3) Basophils (%) (Auto) 0 % (0-3) Neutrophils # (Auto) 12.5 x10^3uL (1.8-7.7) Lymphocytes # (Auto) 2.2 x10^3/uL (1.0-4.8) Monocytes # (Auto) 1.1 x10^3/uL (0.0-1.1) Eosinophils # (Auto) 0.0 x10^3/uL (0.0-0.7) Basophils # (Auto) 0.0 x10^3/uL (0.0-0.2) Micro BC neg Objective Assessment 1. Sepsis 2. Right lower lobe infiltrate. 3.Pulm venous congestion 3. History of dementia. 4. History of hypertension. 5. History of hypothyroidism. 6. Elevated lactate. 7. Hypoxic respiratory failure secondary to chronic obstructive pulmonary disease. 8. Hard of hearing. 9. Right upper extremity superficial line thrombophlebitis. Plan Plan of Care 1. Will dc IV vancomycin ,zosyn continue empiric Levaquin. 2.F/U blood cultures and sputum cultures.and am labs 3. local care of right upper extremity. JHOAN YADAV MD Aug 15, 2017 08:52
--- NOTE | 2017-08-15 12:07 | PDOC ---
PROGRESS NOTES Chief Complaint Chief Complaint 1. CAP 2. Severe sepsis with HYPOTENSION, infectious 3. Dementia 4. 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 HYPOTENSION 7. HYPOthyroidism - on synthroid 8. Elevated lactate\ 9. Hypoxic respi failure sec to CAP History of Present Illness History of Present Illness Pt seen at bedside in ICU, in NAD. Per RN, pt is off Levophed. Is receiving O2 by NC today at 10L. O2 sat at 87%. Pt was given 20 of lasix and that pulled off a lot of fluid. Will consult pulmonology and continue to monitor. Vitals Vitals Vital Signs Date Time Temp Pulse Resp B/P (MAP) Pulse Ox O2 Delivery O2 Flow Rate FiO2 08/15/17 07:58 96 partial rebreather 10.0 08/15/17 06:00 73 33 114/68 (83) 08/15/17 04:00 98.6 98.6 Physical Exam General: Alert, Oriented X3, Cooperative, No acute distress, Other (hRD Of hearing too) Heart: Regular rate, Normal S1, Normal S2 Lungs: Crackles Abdomen: Normal bowel sounds, Soft, No tenderness, No hepatosplenomegaly, No masses Extremities: No clubbing, No cyanosis, No edema, Normal pulses, No tenderness/ swelling Skin: No rashes, No breakdown, No significant lesion Labs LABS Laboratory Tests Test 08/14/17 14:35 08/14/17 20:35 08/15/17 05:15 White Blood Count 17.8 x10^3/uL (4.0-11.0) 15.8 x10^3/uL (4.0-11.0) Red Blood Count 4.54 x10^6/uL (4.30-5.70) 4.35 x10^6/uL (4.30-5.70) Hemoglobin 14.1 g/dL (13.0-17.5) 13.6 g/dL (13.0-17.5) Hematocrit 42.1 % (39.0-53.0) 40.5 % (39.0-53.0) Mean Corpuscular Volume 93 fL (79-100) 93 fL (79-100) Mean Corpuscular Hemoglobin 31 pg (25-35) 31 pg (25-35) Mean Corpuscular Hemoglobin Concent 34 g/dL (31-37) 34 g/dL (31-37) Red Cell Distribution Width 14.4 % (11.5-14.5) 14.4 % (11.5-14.5) Platelet Count 162 x10^3/uL (140-400) 143 x10^3/uL (140-400) Sodium Level 142 mmol/L (136-145) 143 mmol/L (136-145) Potassium Level 3.7 mmol/L (3.5-5.1) 3.6 mmol/L (3.5-5.1) Chloride Level 109 mmol/L (98-107) 111 mmol/L (98-107) Carbon Dioxide Level 19 mmol/L (21-32) 19 mmol/L (21-32) Anion Gap 14 (6-14) 13 (6-14) Blood Urea Nitrogen 31 mg/dL (8-26) 27 mg/dL (8-26) Creatinine 1.7 mg/dL (0.7-1.3) 1.6 mg/dL (0.7-1.3) Estimated GFR (Cockcroft-Gault) 38.2 41.0 Glucose Level 101 mg/dL (70-99) 111 mg/dL (70-99) Calcium Level 7.5 mg/dL (8.5-10.1) 7.0 mg/dL (8.5-10.1) Vancomycin Level Trough 13.4 mcg/mL (10.0-20.0) Vancomycin Last Dose Date 08/13/17 Vancomycin Last Dose Time 2100 Neutrophils (%) (Auto) 79 % (31-73) Lymphocytes (%) (Auto) 14 % (24-48) Monocytes (%) (Auto) 7 % (0-9) Eosinophils (%) (Auto) 0 % (0-3) Basophils (%) (Auto) 0 % (0-3) Neutrophils # (Auto) 12.5 x10^3uL (1.8-7.7) Lymphocytes # (Auto) 2.2 x10^3/uL (1.0-4.8) Monocytes # (Auto) 1.1 x10^3/uL (0.0-1.1) Eosinophils # (Auto) 0.0 x10^3/uL (0.0-0.7) Basophils # (Auto) 0.0 x10^3/uL (0.0-0.2) Review of Systems Review of Systems AOCx3, in NAD. Normal bowel function. No CP. Some SOB. No c/c/e of distal extremities. Assessment and Plan Assessmemt and Plan Problems Medical Problems: (1) Community acquired pneumonia Status: Acute (2) Dementia Status: Acute (3) Lactic acidosis Status: Acute (4) Severe sepsis Status: Acute Assessment: acute hypoxic respiratory failure ARDS sepsis 1. 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 s/p NS on . recovering appropriately. dressing changes as per NS; DUONG d/c.ed today 2. MRSA bacteremia: same as wound cult. on dapto. PICC for rodent exterminator Abx 3. Renal mass vs abscess: bx recommended; consider rpt CT in near future, dedicated renal , to r/o RCC 4. Facial swelling: w/o angioedema/globus/stridor; initially suspected to be allergic rxn to ALISA-I; ? 2/2 infection 5. MANNY on CKD3: back to baseline creat. renal following 6. HTN: better controlled on increased BB. ALISA-I remains on hold. 7. DM2: improved control with home metformin and increased levemir. cont ISS 8. Schizophrenia: continue home meds! 9. Agitation: better w/ IM abramdon and now on Precedex with good results. 10. SNU resident PLAN: Continue advancing diet Continue PRN O2 by NC PT/OT Appreciate subspecialty input Continue ICU monitoring Problems: Comment Review of Relevant I have reviewed the following items emmanuel (where applicable) has been applied. Labs Laboratory Tests Test 08/14/17 14:35 08/14/17 20:35 08/15/17 05:15 White Blood Count 17.8 x10^3/uL (4.0-11.0) 15.8 x10^3/uL (4.0-11.0) Red Blood Count 4.54 x10^6/uL (4.30-5.70) 4.35 x10^6/uL (4.30-5.70) Hemoglobin 14.1 g/dL (13.0-17.5) 13.6 g/dL (13.0-17.5) Hematocrit 42.1 % (39.0-53.0) 40.5 % (39.0-53.0) Mean Corpuscular Volume 93 fL (79-100) 93 fL (79-100) Mean Corpuscular Hemoglobin 31 pg (25-35) 31 pg (25-35) Mean Corpuscular Hemoglobin Concent 34 g/dL (31-37) 34 g/dL (31-37) Red Cell Distribution Width 14.4 % (11.5-14.5) 14.4 % (11.5-14.5) Platelet Count 162 x10^3/uL (140-400) 143 x10^3/uL (140-400) Sodium Level 142 mmol/L (136-145) 143 mmol/L (136-145) Potassium Level 3.7 mmol/L (3.5-5.1) 3.6 mmol/L (3.5-5.1) Chloride Level 109 mmol/L (98-107) 111 mmol/L (98-107) Carbon Dioxide Level 19 mmol/L (21-32) 19 mmol/L (21-32) Anion Gap 14 (6-14) 13 (6-14) Blood Urea Nitrogen 31 mg/dL (8-26) 27 mg/dL (8-26) Creatinine 1.7 mg/dL (0.7-1.3) 1.6 mg/dL (0.7-1.3) Estimated GFR (Cockcroft-Gault) 38.2 41.0 Glucose Level 101 mg/dL (70-99) 111 mg/dL (70-99) Calcium Level 7.5 mg/dL (8.5-10.1) 7.0 mg/dL (8.5-10.1) Vancomycin Level Trough 13.4 mcg/mL (10.0-20.0) Vancomycin Last Dose Date 08/13/17 Vancomycin Last Dose Time 2100 Neutrophils (%) (Auto) 79 % (31-73) Lymphocytes (%) (Auto) 14 % (24-48) Monocytes (%) (Auto) 7 % (0-9) Eosinophils (%) (Auto) 0 % (0-3) Basophils (%) (Auto) 0 % (0-3) Neutrophils # (Auto) 12.5 x10^3uL (1.8-7.7) Lymphocytes # (Auto) 2.2 x10^3/uL (1.0-4.8) Monocytes # (Auto) 1.1 x10^3/uL (0.0-1.1) Eosinophils # (Auto) 0.0 x10^3/uL (0.0-0.7) Basophils # (Auto) 0.0 x10^3/uL (0.0-0.2) Laboratory Tests Test 08/14/17 14:35 08/14/17 20:35 08/15/17 05:15 White Blood Count 17.8 x10^3/uL (4.0-11.0) 15.8 x10^3/uL (4.0-11.0) Red Blood Count 4.54 x10^6/uL (4.30-5.70) 4.35 x10^6/uL (4.30-5.70) Hemoglobin 14.1 g/dL (13.0-17.5) 13.6 g/dL (13.0-17.5) Hematocrit 42.1 % (39.0-53.0) 40.5 % (39.0-53.0) Mean Corpuscular Volume 93 fL (79-100) 93 fL (79-100) Mean Corpuscular Hemoglobin 31 pg (25-35) 31 pg (25-35) Mean Corpuscular Hemoglobin Concent 34 g/dL (31-37) 34 g/dL (31-37) Red Cell Distribution Width 14.4 % (11.5-14.5) 14.4 % (11.5-14.5) Platelet Count 162 x10^3/uL (140-400) 143 x10^3/uL (140-400) Sodium Level 142 mmol/L (136-145) 143 mmol/L (136-145) Potassium Level 3.7 mmol/L (3.5-5.1) 3.6 mmol/L (3.5-5.1) Chloride Level 109 mmol/L (98-107) 111 mmol/L (98-107) Carbon Dioxide Level 19 mmol/L (21-32) 19 mmol/L (21-32) Anion Gap 14 (6-14) 13 (6-14) Blood Urea Nitrogen 31 mg/dL (8-26) 27 mg/dL (8-26) Creatinine 1.7 mg/dL (0.7-1.3) 1.6 mg/dL (0.7-1.3) Estimated GFR (Cockcroft-Gault) 38.2 41.0 Glucose Level 101 mg/dL (70-99) 111 mg/dL (70-99) Calcium Level 7.5 mg/dL (8.5-10.1) 7.0 mg/dL (8.5-10.1) Vancomycin Level Trough 13.4 mcg/mL (10.0-20.0) Vancomycin Last Dose Date 08/13/17 Vancomycin Last Dose Time 2100 Neutrophils (%) (Auto) 79 % (31-73) Lymphocytes (%) (Auto) 14 % (24-48) Monocytes (%) (Auto) 7 % (0-9) Eosinophils (%) (Auto) 0 % (0-3) Basophils (%) (Auto) 0 % (0-3) Neutrophils # (Auto) 12.5 x10^3uL (1.8-7.7) Lymphocytes # (Auto) 2.2 x10^3/uL (1.0-4.8) Monocytes # (Auto) 1.1 x10^3/uL (0.0-1.1) Eosinophils # (Auto) 0.0 x10^3/uL (0.0-0.7) Basophils # (Auto) 0.0 x10^3/uL (0.0-0.2) Microbiology 08/12/17 Blood Culture - Preliminary, Resulted NO GROWTH AFTER 2 DAYS Medications Current Medications Sodium Chloride 1,000 ml @ 2,040 mls/hr Q30M IV Last administered on 18:30; Start 08/12/17 at 18:21; Stop 08/12/17 at 19:21; Status DC Levofloxacin/ Dextrose (Levaquin Per Pharmacy) 1 each PRN DAILY PRN MC SEE COMMENTS; Start 08/12/17 at 18:30; Stop 08/14/17 at 08:56; Status DC Calcium Gluconate (Calcium Gluconate) 2,000 mg 1X ONCE IVP Last administered on 08/12/17 19:12; Start 08/12/17 at 18:30; Stop 08/12/17 at 18:38; Status DC Docusate Sodium (Colace) 200 mg DAILY PO Last administered on 08/14/17 09:03; Start 08/13/17 at 09:00 Dutasteride (Avodart) 0.5 mg DAILY PO Last administered on 08/14/17 09:03; Start 08/13/17 at 09:00 Lamotrigine (LaMICtal) 200 mg DAILY PO Last administered on 08/14/17 09:03; Start 08/13/17 at 09:00 Levothyroxine Sodium (Synthroid) 50 mcg DAILY PO Last administered on 09:03; Start 08/13/17 at 09:00 Vitamin D (Vitamin D3) 2,000 unit DAILY PO Last administered on 08/14/17 09:03 ; Start 08/13/17 at 09:00 Calcium/Vitamin D (Oscal D 250mg/ 125uts) 1 tab [id number] PO Last administered on 08/14/17 09:03; Start 08/13/17 at 08:00 Albuterol/ Ipratropium (Duoneb) 3 ml RTQID NEB ; Start 08/12/17 at 20:00; Status Cancel Guaifenesin (Robitussin Dm) 10 ml PRN Q6HRS PRN PO COUGH; Start 08/12/17 at 18: 45 Levofloxacin/ Dextrose 150 ml @ As Directed STK-MED ONCE IV ; Start 08/12/17 at 18:32; Stop 08/12/17 at 18:33; Status DC Levofloxacin/ Dextrose 150 ml @ 100 mls/hr ONCE ONCE IV Last administered on 08/12/17 19:29; Start 08/12/17 at 18:45; Stop 08/12/17 at 20:14; Status DC Enoxaparin Sodium (Lovenox 40mg Syringe) 40 mg Q24H SQ Last administered on 19:46; Start 08/12/17 at 19:00 Albuterol/ Ipratropium (Duoneb) 3 ml RTQID NEB Last administered on 08/15/17 11:58; Start 08/12/17 at 20:00 Benzonatate (Tessalon Perle) 100 mg [id number] PO Last administered on 08/14/17 21 :20; Start 08/12/17 at 21:00 Levofloxacin/ Dextrose 50 ml @ 50 mls/hr Q24H IV ; Start 08/13/17 at 19:30; Stop 08/13/17 at 19:30; Status DC Sodium Chloride 1,000 ml @ 100 mls/hr Q10H IV Last administered on 08/13/17 07:44; Start 08/12/17 at 19:41; Stop 08/13/17 at 19:40; Status DC Norepinephrine Bitartrate 250 ml @ 0 mls/hr CONT PRN IV SEE I/O RECORD Last administered on 08/14/17 19:46; Start 08/12/17 at 21:00 Vancomycin HCl 250 ml @ 250 mls/hr 1X ONCE IV Last administered on 08/12/17 21:00; Start 08/12/17 at 21:00; Stop 08/12/17 at 21:19; Status DC Vancomycin HCl 1.75 gm/Dextrose 500 ml @ 250 mls/hr 1X ONCE IV Last administered on 08/12/17 21:18; Start 08/12/17 at 22:00; Stop 08/12/17 at 23:59 ; Status DC Vancomycin HCl (Vanco Per Pharmacy) 1 each PRN DAILY PRN MC SEE COMMENTS Last administered on 08/14/17 23:02; Start 08/12/17 at 21:30; Stop 08/15/17 at 08: 44; Status DC Piperacillin Sod/ Tazobactam Sod 3.375 gm/Dextrose 50 ml @ 100 mls/hr Q6HRS IV ; Start 08/13/17 at 08:30; Status Cancel Vancomycin HCl (Vanco Per Pharmacy) 1 each PRN DAILY PRN MC SEE COMMENTS; Start 08/13/17 at 08:15; Stop 08/13/17 at 08:19; Status DC Vancomycin HCl 1 gm/Dextrose 250 ml @ 250 mls/hr Q24H IV Last administered on 08/14/17 21:21; Start 08/13/17 at 21:00; Stop 08/15/17 at 08:43; Status DC Vancomycin HCl 1 each 1X ONCE MC ; Start 08/14/17 at 20:30; Stop 08/14/17 at 20 :31; Status DC Piperacillin Sod/ Tazobactam Sod (Zosyn) 3.375 gm Q6HRS IVP Last administered on 08/15/17 05:28; Start 08/13/17 at 08:45; Stop 08/15/17 at 08:46; Status DC Levofloxacin/ Dextrose 150 ml @ 100 mls/hr Q48H IV Last administered on 19:45; Start 08/14/17 at 19:00 Diphenhydramine HCl (Benadryl) 25 mg PRN Q6HRS PRN PO ITCHING Last administered on 08/13/17 19:57; Start 08/13/17 at 19:45 Zolpidem Tartrate (Ambien) 5 mg 1X ONCE PO ; Start 08/13/17 at 21:30; Stop 08/13/17 at 21:31; Status DC Sodium Chloride 1,000 ml @ 100 mls/hr Q10H IV Last administered on 08/14/17 18:15; Start 08/14/17 at 08:00 Lactobacillus Rhamnosus (Culturelle) 1 cap BID PO Last administered on 21:20; Start 08/14/17 at 21:00 Sodium Chloride 500 ml @ 500 mls/hr 1X ONCE IV Last administered on 19:48; Start 08/14/17 at 19:00; Stop 08/14/17 at 19:59; Status DC Lorazepam (Ativan) 1 mg PRN Q2HRS PRN PO ANXIETY / AGITATION Last administered on 08/15/17 03:15; Start 08/14/17 at 19:30 Furosemide (Lasix) 20 mg 1X ONCE IVP Last administered on 08/15/17 08:30; Start 08/15/17 at 08:30; Stop 08/15/17 at 08:31; Status DC Active Scripts Active Reported Avodart (Dutasteride) 0.5 Mg Capsule 1 Cap PO DAILY Docusate Sodium 100 Mg Capsule 2 Cap PO DAILY Caltrate 600 + D Tablet (Calcium Carbonate/Vitamin D3) 1 Each Tablet 1 Each PO Vitamin D (Cholecalciferol (Vitamin D3)) 2,000 Unit Capsule 1 Cap PO DAILY Carvedilol 6.25 Mg Tablet 0.5 Tab PO DAILY Lamictal (Lamotrigine) 100 Mg Tablet 2 Tab PO DAILY Levothyroxine Sodium 50 Mcg Tablet 1 Tab PO DAILY Vitals/I & O Vital Sign - Last 24 Hours 08/14/17 08/14/17 08/14/17 08/14/17 13:00 14:00 15:00 15:21 Pulse 70 78 66 Resp 31 31 31 B/P (MAP) 102/50 (67) 119/50 (73) 117/61 (79) Pulse Ox 88 88 88 O2 Delivery Nasal Cannula Nasal Cannula Nasal Cannula Nasal Cannula O2 Flow Rate 4.0 4.0 4.0 4.0 08/14/17 08/14/17 08/14/17 08/14/17 16:00 16:00 17:00 18:00 Pulse 96 90 72 Resp 31 31 31 B/P (MAP) 137/34 (68) 124/76 (92) 148/93 (111) Pulse Ox 88 88 88 O2 Delivery Nasal Cannula Nasal Cannula Nasal Cannula Nasal Cannula O2 Flow Rate 4.0 3.0 4.0 4.0 08/14/17 08/14/17 08/14/17 08/14/17 19:00 20:00 20:00 21:00 Temp 98.0 98.0 Pulse 74 68 66 Resp 31 35 31 B/P (MAP) 138/82 (100) 149/72 (97) 101/59 (73) Pulse Ox 90 91 98 O2 Delivery Nasal Cannula Nasal Cannula Nasal Cannula Nasal Cannula O2 Flow Rate 4.0 4.0 4.0 4.0 08/14/17 08/14/17 08/14/17 08/14/17 22:00 23:00 23:59 23:59 Temp 97.0 97.0 Pulse 68 87 69 Resp 33 33 36 B/P (MAP) 109/57 (74) 105/56 (72) 90/53 (65) Pulse Ox 94 95 91 O2 Delivery Nasal Cannula Nasal Cannula Nasal Cannula Nasal Cannula O2 Flow Rate 4.0 4.0 4.0 4.0 08/15/17 08/15/17 08/15/17 08/15/17 01:00 02:00 03:00 04:00 Pulse 72 68 76 Resp 34 34 33 B/P (MAP) 103/60 (74) 102/58 (73) 116/65 (82) Pulse Ox 93 93 95 O2 Delivery Nasal Cannula Nasal Cannula Nasal Cannula Nasal Cannula O2 Flow Rate 4.0 4.0 4.0 4.0 08/15/17 08/15/17 08/15/17 08/15/17 04:00 05:00 06:00 07:58 Temp 98.6 98.6 Pulse 72 76 73 Resp 37 33 33 B/P (MAP) 126/71 (89) 120/62 (81) 114/68 (83) Pulse Ox 91 92 96 96 O2 Delivery Nasal Cannula Nasal Cannula Simple Mask partial rebreather O2 Flow Rate 4.0 4.0 6.0 10.0 DAINA WASHINGTON III DO Aug 15, 2017 12:07
[2017-08-15] MEDS: LACTOBACILLUS RHAMNOSUS GG 1 CAPSULE. PO SCH ×2 (13:42→21:00)
[2017-08-15] MEDS: BENZONATATE 100 MG CAPSULE. PO SCH ×3 (13:42→21:01)
[2017-08-15] MEDS: DUTASTERIDE 0.5 MG CAPSULE PO SCH (13:42)
[2017-08-15] MEDS: CALCIUM CARB/VIT D3 250/125 TABLET. PO SCH (13:43)
[2017-08-15] MEDS: CHOLECALCIFEROL (VITAMIN D3) 1,000 UNIT TABLET PO SCH (13:43)
[2017-08-15] MEDS: LEVOTHYROXINE 50 MCG TABLET PO SCH (13:43)
[2017-08-15] MEDS: lamoTRIgine 100 MG TABLET. PO SCH (13:43)
[2017-08-15] MEDS: DOCUSATE SODIUM 100 MG CAPSULE. PO SCH (13:43)
[2017-08-15 14:03] LABS: HCO3 ABG 14 mmol/L (21-28); PCO2 ABG 24 mmHg (35-46); PH ABG 7.37 (7.35-7.45); PO2 ABG 54 mmHg (65-108); SAT O2 ABG 87 % (92-99)
[2017-08-15 14:05] LABS: FIO2 ABG 60
--- NOTE | 2017-08-15 14:39 | RAD ---
EXAM: Chest one view. HISTORY: Hypoxia. COMPARISON: 08/14/2017. FINDINGS: A frontal view of the chest is obtained. A left-sided pacer/defibrillator has its leads in the right atrium and right ventricle. Diffuse bilateral interstitial and airspace opacities on the right greater than left are increased. These suggest moderate pulmonary edema versus multifocal pneumonia. There are small bilateral pleural effusions. There is no pneumothorax. The heart is mildly enlarged. IMPRESSION: 1. Increased bilateral opacities consistent with moderate pulmonary edema versus multifocal pneumonia. 2. Small bilateral pleural effusions. Mild cardiomegaly.
--- NOTE | 2017-08-15 15:00 | PDOC ---
PULMONARY PROGRESS NOTES Subjective PT MORE SOA TODAY OFF PRESSORS Vitals Vital Signs Date Time Temp Pulse Resp B/P (MAP) Pulse Ox O2 Delivery O2 Flow Rate FiO2 08/15/17 11:59 92 High Flow Nasal Cannula 10.0 08/15/17 06:00 73 33 114/68 (83) 08/15/17 04:00 98.6 98.6 ROS: No Nausea, No Chest Pain, No Abdominal Pain, No Increase Cough Lungs: Crackles Cardiovascular: S1, S2 Abdomen: Soft, Non-tender Neuro Exam: Alert Extremities: No Edema Skin: Warm Labs Laboratory Tests Test 08/14/17 14:35 08/14/17 20:35 08/15/17 05:15 08/15/17 13:55 White Blood Count 17.8 x10^3/uL (4.0-11.0) 15.8 x10^3/uL (4.0-11.0) Red Blood Count 4.54 x10^6/uL (4.30-5.70) 4.35 x10^6/uL (4.30-5.70) Hemoglobin 14.1 g/dL (13.0-17.5) 13.6 g/dL (13.0-17.5) Hematocrit 42.1 % (39.0-53.0) 40.5 % (39.0-53.0) Mean Corpuscular Volume 93 fL (79-100) 93 fL (79-100) Mean Corpuscular Hemoglobin 31 pg (25-35) 31 pg (25-35) Mean Corpuscular Hemoglobin Concent 34 g/dL (31-37) 34 g/dL (31-37) Red Cell Distribution Width 14.4 % (11.5-14.5) 14.4 % (11.5-14.5) Platelet Count 162 x10^3/uL (140-400) 143 x10^3/uL (140-400) Sodium Level 142 mmol/L (136-145) 143 mmol/L (136-145) Potassium Level 3.7 mmol/L (3.5-5.1) 3.6 mmol/L (3.5-5.1) Chloride Level 109 mmol/L (98-107) 111 mmol/L (98-107) Carbon Dioxide Level 19 mmol/L (21-32) 19 mmol/L (21-32) Anion Gap 14 (6-14) 13 (6-14) Blood Urea Nitrogen 31 mg/dL (8-26) 27 mg/dL (8-26) Creatinine 1.7 mg/dL (0.7-1.3) 1.6 mg/dL (0.7-1.3) Estimated GFR (Cockcroft-Gault) 38.2 41.0 Glucose Level 101 mg/dL (70-99) 111 mg/dL (70-99) Calcium Level 7.5 mg/dL (8.5-10.1) 7.0 mg/dL (8.5-10.1) Vancomycin Level Trough 13.4 mcg/mL (10.0-20.0) Vancomycin Last Dose Date 08/13/17 Vancomycin Last Dose Time 2100 Neutrophils (%) (Auto) 79 % (31-73) Lymphocytes (%) (Auto) 14 % (24-48) Monocytes (%) (Auto) 7 % (0-9) Eosinophils (%) (Auto) 0 % (0-3) Basophils (%) (Auto) 0 % (0-3) Neutrophils # (Auto) 12.5 x10^3uL (1.8-7.7) Lymphocytes # (Auto) 2.2 x10^3/uL (1.0-4.8) Monocytes # (Auto) 1.1 x10^3/uL (0.0-1.1) Eosinophils # (Auto) 0.0 x10^3/uL (0.0-0.7) Basophils # (Auto) 0.0 x10^3/uL (0.0-0.2) O2 Saturation 87 % (92-99) Arterial Blood pH 7.37 (7.35-7.45) Arterial Blood pCO2 at Patient Temp 24 mmHg (35-46) Arterial Blood pO2 at Patient Temp 54 mmHg (65-108) Arterial Blood HCO3 14 mmol/L (21-28) Arterial Blood Base Excess -10 mmol/L (-3-3) FiO2 60 Laboratory Tests Test 08/14/17 20:35 08/15/17 05:15 08/15/17 13:55 Vancomycin Level Trough 13.4 mcg/mL (10.0-20.0) Vancomycin Last Dose Date 08/13/17 Vancomycin Last Dose Time 2100 White Blood Count 15.8 x10^3/uL (4.0-11.0) Red Blood Count 4.35 x10^6/uL (4.30-5.70) Hemoglobin 13.6 g/dL (13.0-17.5) Hematocrit 40.5 % (39.0-53.0) Mean Corpuscular Volume 93 fL (79-100) Mean Corpuscular Hemoglobin 31 pg (25-35) Mean Corpuscular Hemoglobin Concent 34 g/dL (31-37) Red Cell Distribution Width 14.4 % (11.5-14.5) Platelet Count 143 x10^3/uL (140-400) Neutrophils (%) (Auto) 79 % (31-73) Lymphocytes (%) (Auto) 14 % (24-48) Monocytes (%) (Auto) 7 % (0-9) Eosinophils (%) (Auto) 0 % (0-3) Basophils (%) (Auto) 0 % (0-3) Neutrophils # (Auto) 12.5 x10^3uL (1.8-7.7) Lymphocytes # (Auto) 2.2 x10^3/uL (1.0-4.8) Monocytes # (Auto) 1.1 x10^3/uL (0.0-1.1) Eosinophils # (Auto) 0.0 x10^3/uL (0.0-0.7) Basophils # (Auto) 0.0 x10^3/uL (0.0-0.2) Sodium Level 143 mmol/L (136-145) Potassium Level 3.6 mmol/L (3.5-5.1) Chloride Level 111 mmol/L (98-107) Carbon Dioxide Level 19 mmol/L (21-32) Anion Gap 13 (6-14) Blood Urea Nitrogen 27 mg/dL (8-26) Creatinine 1.6 mg/dL (0.7-1.3) Estimated GFR (Cockcroft-Gault) 41.0 Glucose Level 111 mg/dL (70-99) Calcium Level 7.0 mg/dL (8.5-10.1) O2 Saturation 87 % (92-99) Arterial Blood pH 7.37 (7.35-7.45) Arterial Blood pCO2 at Patient Temp 24 mmHg (35-46) Arterial Blood pO2 at Patient Temp 54 mmHg (65-108) Arterial Blood HCO3 14 mmol/L (21-28) Arterial Blood Base Excess -10 mmol/L (-3-3) FiO2 60 Medications Active Scripts Medications Dose Route/Sig Max Daily Dose Days Date Category Avodart (Dutasteride) 0.5 Mg Capsule 1 Cap PO DAILY 08/12/17 Reported Docusate Sodium 100 Mg Capsule 2 Cap PO DAILY 08/12/17 Reported Caltrate 600 + D Tablet (Calcium Carbonate/Vitamin D3) 1 Each Tablet 1 Each PO 08/12/17 Reported Vitamin D (Cholecalciferol (Vitamin D3)) 2,000 Unit Capsule 1 Cap PO DAILY 08/12/17 Reported Carvedilol 6.25 Mg Tablet 0.5 Tab PO DAILY 08/12/17 Reported Lamictal (Lamotrigine) 100 Mg Tablet 2 Tab PO DAILY 08/12/17 Reported Levothyroxine Sodium 50 Mcg Tablet 1 Tab PO DAILY 08/12/17 Reported Impression . 1. Abnormal x-ray compatible with pneumonia, suspect gram negative. 2. Septic shock, improved with IV fluids and norepinephrine. 3. Mild protein malnutrition, present upon admission. 4. Tobacco abuse, in remission. 5. Hypothyroidism. 6. Dementia. 7. Acute toxic encephalopathy, present upon admission. . Plan . IV LASIX FOR 3 DAYS SPOKE WITH RN 1. Currently being covered for the possibility of gram-positive and gram- negative pneumonia. 2. Weaned off of norepinephrine. 3. monitor cxr 4. Repeat lactic acid level, improved 5. DVT and GI prophylaxis. 6. Dietary consultation for protein malnutrition. LONNIE MEREDITH MD Aug 15, 2017 15:00
[2017-08-15] MEDS: FUROSEMIDE 40 MG/4 ML VIAL. IVP SCH (15:31)
[2017-08-15] MEDS: ENOXAPARIN 30 MG/0.3 ML SYRINGE. SQ SCH (17:55)
[2017-08-15] MEDS: HALOPERIDOL LACTATE 5 MG/ML VIAL. IVP PRN (18:25)
[2017-08-15] MEDS: diphenhydrAMINE 50 MG/ML VIAL IVP PRN (21:01)
[2017-08-16] VITALS (24 sets, daily range): BP systolic 84–135; BP diastolic 43–75
[2017-08-16] MEDS: HALOPERIDOL LACTATE 5 MG/ML VIAL. IVP PRN (00:08)
[2017-08-16] MEDS: diphenhydrAMINE 50 MG/ML VIAL IVP PRN ×2 (03:32→13:51)
[2017-08-16 04:43] LABS: BASO % 0 % (0-3); CALCIUM 7.5 mg/dL (8.5-10.1); CREATININE 1.6 mg/dL (0.7-1.3); EOS % 0 % (0-3); HEMATOCRIT 39.5 % (39.0-53.0); HEMOGLOBIN 13.6 g/dL (13.0-17.5); LYMPH # 1.4 x10^3/uL (1.0-4.8); LYMPH % 10 % (24-48); MEAN CORPUSCULAR HEMOGLOBIN 31 pg (25-35); MEAN CORPUSCULAR HGB CONC 34 g/dL (31-37); MEAN CORPUSCULAR VOLUME 91 fL (79-100); MONO % 6 % (0-9); NEUT % 84 % (31-73); PLATELET COUNT 150 x10^3/uL (140-400); POTASSIUM 3.2 mmol/L (3.5-5.1); RED BLOOD COUNT 4.33 x10^6/uL (4.30-5.70); RED CELL DISTRIBUTION WIDTH 14.2 % (11.5-14.5); WHITE BLOOD COUNT 14.6 x10^3/uL (4.0-11.0)
[2017-08-16] MEDS: IPRATRPIUM/ALBUTEROL 0.5/2.5MG 3 ML NEBU. NEB SCH ×4 (07:43→20:04)
[2017-08-16] MEDS: CALCIUM CARB/VIT D3 250/125 TABLET. PO SCH (08:00)
[2017-08-16] MEDS: BENZONATATE 100 MG CAPSULE. PO SCH ×2 (08:54→13:51)
[2017-08-16] MEDS: LEVOTHYROXINE 50 MCG TABLET PO SCH (08:54)
[2017-08-16] MEDS: FUROSEMIDE 40 MG/4 ML VIAL. IVP SCH (08:54)
[2017-08-16] MEDS: lamoTRIgine 100 MG TABLET. PO SCH (08:54)
[2017-08-16] MEDS: DUTASTERIDE 0.5 MG CAPSULE PO SCH (08:54)
[2017-08-16] MEDS: LACTOBACILLUS RHAMNOSUS GG 1 CAPSULE. PO SCH ×2 (08:54→21:09)
[2017-08-16] MEDS: CHOLECALCIFEROL (VITAMIN D3) 1,000 UNIT TABLET PO SCH (08:55)
[2017-08-16] MEDS: DOCUSATE SODIUM 100 MG CAPSULE. PO SCH (08:55)
--- NOTE | 2017-08-16 09:23 | PDOC ---
Infectious Disease Note Subjective Subjective Denies pain, SOA or upset stomach No fever or chills ROS ROS Limited Vital Sign Vital Signs Vital Signs Date Time Temp Pulse Resp B/P (MAP) Pulse Ox O2 Delivery O2 Flow Rate FiO2 08/16/17 08:02 Non-Rebreather 15.0 08/16/17 07:43 94 08/16/17 07:00 98.0 70 34 117/63 (81) 98.0 Physical Exam PHYSICAL EXAM GENERAL: Propped up in bed, on a nonrebreather HEENT: PERRL LUNGS: Diminished aeration, nonlabored HEART: S1S2, pacemaker ABD: Soft, NT, BS active : Garcia EXT: No edema, no cyanosis FINANCIAL AID COORDINATOR: Alert, nods to few questions appropriately SKIN: No rash IV: ok Labs Lab Laboratory Tests Test 08/15/17 13:55 08/16/17 03:30 O2 Saturation 87 % (92-99) Arterial Blood pH 7.37 (7.35-7.45) Arterial Blood pCO2 at Patient Temp 24 mmHg (35-46) Arterial Blood pO2 at Patient Temp 54 mmHg (65-108) Arterial Blood HCO3 14 mmol/L (21-28) Arterial Blood Base Excess -10 mmol/L (-3-3) FiO2 60 White Blood Count 14.6 x10^3/uL (4.0-11.0) Red Blood Count 4.33 x10^6/uL (4.30-5.70) Hemoglobin 13.6 g/dL (13.0-17.5) Hematocrit 39.5 % (39.0-53.0) Mean Corpuscular Volume 91 fL (79-100) Mean Corpuscular Hemoglobin 31 pg (25-35) Mean Corpuscular Hemoglobin Concent 34 g/dL (31-37) Red Cell Distribution Width 14.2 % (11.5-14.5) Platelet Count 150 x10^3/uL (140-400) Neutrophils (%) (Auto) 84 % (31-73) Lymphocytes (%) (Auto) 10 % (24-48) Monocytes (%) (Auto) 6 % (0-9) Eosinophils (%) (Auto) 0 % (0-3) Basophils (%) (Auto) 0 % (0-3) Neutrophils # (Auto) 12.3 x10^3uL (1.8-7.7) Lymphocytes # (Auto) 1.4 x10^3/uL (1.0-4.8) Monocytes # (Auto) 0.9 x10^3/uL (0.0-1.1) Eosinophils # (Auto) 0.0 x10^3/uL (0.0-0.7) Basophils # (Auto) 0.0 x10^3/uL (0.0-0.2) Sodium Level 150 mmol/L (136-145) Potassium Level 3.2 mmol/L (3.5-5.1) Chloride Level 111 mmol/L (98-107) Carbon Dioxide Level 23 mmol/L (21-32) Anion Gap 16 (6-14) Blood Urea Nitrogen 34 mg/dL (8-26) Creatinine 1.6 mg/dL (0.7-1.3) Estimated GFR (Cockcroft-Gault) 41.0 Glucose Level 92 mg/dL (70-99) Calcium Level 7.5 mg/dL (8.5-10.1) Micro BLOOD CULTURE Preliminary NO GROWTH AFTER 3 DAYS Objective Assessment Sepsis Right lower lobe infiltrate. Leukocytosis, trending down MANNY Elevated lactic Pulm venous congestion Hypoxic respiratory failure secondary to COPD Hard of hearing. Right upper extremity superficial line thrombophlebitis. History of dementia. History of hypertension. History of hypothyroidism. Plan Plan of Care Levaquin. Sputum not collected Local care of right upper extremity. Attending Co-Sign The patient was seen and interviewed as well as examined at the bedside. The chart was reviewed. The case was discussed. Agree with the plan of care. jonon + levaquin NANCY YANG APRN Aug 16, 2017 09:23 GARDENIA YADAV MD Aug 16, 2017 14:24
--- NOTE | 2017-08-16 10:37 | PDOC ---
PULMONARY PROGRESS NOTES Subjective PT DELIRIOUS OFF PRESSORS Vitals Vital Signs Date Time Temp Pulse Resp B/P (MAP) Pulse Ox O2 Delivery O2 Flow Rate FiO2 08/16/17 08:02 Non-Rebreather 15.0 08/16/17 07:43 94 08/16/17 07:00 98.0 70 34 117/63 (81) 98.0 Lungs: Crackles Cardiovascular: S1, S2 Abdomen: Soft, Non-tender Neuro Exam: Alert Extremities: No Edema Skin: Warm Labs Laboratory Tests Test 08/14/17 14:35 08/14/17 20:35 08/15/17 05:15 08/15/17 13:55 White Blood Count 17.8 x10^3/uL (4.0-11.0) 15.8 x10^3/uL (4.0-11.0) Red Blood Count 4.54 x10^6/uL (4.30-5.70) 4.35 x10^6/uL (4.30-5.70) Hemoglobin 14.1 g/dL (13.0-17.5) 13.6 g/dL (13.0-17.5) Hematocrit 42.1 % (39.0-53.0) 40.5 % (39.0-53.0) Mean Corpuscular Volume 93 fL (79-100) 93 fL (79-100) Mean Corpuscular Hemoglobin 31 pg (25-35) 31 pg (25-35) Mean Corpuscular Hemoglobin Concent 34 g/dL (31-37) 34 g/dL (31-37) Red Cell Distribution Width 14.4 % (11.5-14.5) 14.4 % (11.5-14.5) Platelet Count 162 x10^3/uL (140-400) 143 x10^3/uL (140-400) Sodium Level 142 mmol/L (136-145) 143 mmol/L (136-145) Potassium Level 3.7 mmol/L (3.5-5.1) 3.6 mmol/L (3.5-5.1) Chloride Level 109 mmol/L (98-107) 111 mmol/L (98-107) Carbon Dioxide Level 19 mmol/L (21-32) 19 mmol/L (21-32) Anion Gap 14 (6-14) 13 (6-14) Blood Urea Nitrogen 31 mg/dL (8-26) 27 mg/dL (8-26) Creatinine 1.7 mg/dL (0.7-1.3) 1.6 mg/dL (0.7-1.3) Estimated GFR (Cockcroft-Gault) 38.2 41.0 Glucose Level 101 mg/dL (70-99) 111 mg/dL (70-99) Calcium Level 7.5 mg/dL (8.5-10.1) 7.0 mg/dL (8.5-10.1) Vancomycin Level Trough 13.4 mcg/mL (10.0-20.0) Vancomycin Last Dose Date 08/13/17 Vancomycin Last Dose Time 2100 Neutrophils (%) (Auto) 79 % (31-73) Lymphocytes (%) (Auto) 14 % (24-48) Monocytes (%) (Auto) 7 % (0-9) Eosinophils (%) (Auto) 0 % (0-3) Basophils (%) (Auto) 0 % (0-3) Neutrophils # (Auto) 12.5 x10^3uL (1.8-7.7) Lymphocytes # (Auto) 2.2 x10^3/uL (1.0-4.8) Monocytes # (Auto) 1.1 x10^3/uL (0.0-1.1) Eosinophils # (Auto) 0.0 x10^3/uL (0.0-0.7) Basophils # (Auto) 0.0 x10^3/uL (0.0-0.2) O2 Saturation 87 % (92-99) Arterial Blood pH 7.37 (7.35-7.45) Arterial Blood pCO2 at Patient Temp 24 mmHg (35-46) Arterial Blood pO2 at Patient Temp 54 mmHg (65-108) Arterial Blood HCO3 14 mmol/L (21-28) Arterial Blood Base Excess -10 mmol/L (-3-3) FiO2 60 Test 08/16/17 03:30 White Blood Count 14.6 x10^3/uL (4.0-11.0) Red Blood Count 4.33 x10^6/uL (4.30-5.70) Hemoglobin 13.6 g/dL (13.0-17.5) Hematocrit 39.5 % (39.0-53.0) Mean Corpuscular Volume 91 fL (79-100) Mean Corpuscular Hemoglobin 31 pg (25-35) Mean Corpuscular Hemoglobin Concent 34 g/dL (31-37) Red Cell Distribution Width 14.2 % (11.5-14.5) Platelet Count 150 x10^3/uL (140-400) Neutrophils (%) (Auto) 84 % (31-73) Lymphocytes (%) (Auto) 10 % (24-48) Monocytes (%) (Auto) 6 % (0-9) Eosinophils (%) (Auto) 0 % (0-3) Basophils (%) (Auto) 0 % (0-3) Neutrophils # (Auto) 12.3 x10^3uL (1.8-7.7) Lymphocytes # (Auto) 1.4 x10^3/uL (1.0-4.8) Monocytes # (Auto) 0.9 x10^3/uL (0.0-1.1) Eosinophils # (Auto) 0.0 x10^3/uL (0.0-0.7) Basophils # (Auto) 0.0 x10^3/uL (0.0-0.2) Sodium Level 150 mmol/L (136-145) Potassium Level 3.2 mmol/L (3.5-5.1) Chloride Level 111 mmol/L (98-107) Carbon Dioxide Level 23 mmol/L (21-32) Anion Gap 16 (6-14) Blood Urea Nitrogen 34 mg/dL (8-26) Creatinine 1.6 mg/dL (0.7-1.3) Estimated GFR (Cockcroft-Gault) 41.0 Glucose Level 92 mg/dL (70-99) Calcium Level 7.5 mg/dL (8.5-10.1) Laboratory Tests Test 08/15/17 13:55 08/16/17 03:30 O2 Saturation 87 % (92-99) Arterial Blood pH 7.37 (7.35-7.45) Arterial Blood pCO2 at Patient Temp 24 mmHg (35-46) Arterial Blood pO2 at Patient Temp 54 mmHg (65-108) Arterial Blood HCO3 14 mmol/L (21-28) Arterial Blood Base Excess -10 mmol/L (-3-3) FiO2 60 White Blood Count 14.6 x10^3/uL (4.0-11.0) Red Blood Count 4.33 x10^6/uL (4.30-5.70) Hemoglobin 13.6 g/dL (13.0-17.5) Hematocrit 39.5 % (39.0-53.0) Mean Corpuscular Volume 91 fL (79-100) Mean Corpuscular Hemoglobin 31 pg (25-35) Mean Corpuscular Hemoglobin Concent 34 g/dL (31-37) Red Cell Distribution Width 14.2 % (11.5-14.5) Platelet Count 150 x10^3/uL (140-400) Neutrophils (%) (Auto) 84 % (31-73) Lymphocytes (%) (Auto) 10 % (24-48) Monocytes (%) (Auto) 6 % (0-9) Eosinophils (%) (Auto) 0 % (0-3) Basophils (%) (Auto) 0 % (0-3) Neutrophils # (Auto) 12.3 x10^3uL (1.8-7.7) Lymphocytes # (Auto) 1.4 x10^3/uL (1.0-4.8) Monocytes # (Auto) 0.9 x10^3/uL (0.0-1.1) Eosinophils # (Auto) 0.0 x10^3/uL (0.0-0.7) Basophils # (Auto) 0.0 x10^3/uL (0.0-0.2) Sodium Level 150 mmol/L (136-145) Potassium Level 3.2 mmol/L (3.5-5.1) Chloride Level 111 mmol/L (98-107) Carbon Dioxide Level 23 mmol/L (21-32) Anion Gap 16 (6-14) Blood Urea Nitrogen 34 mg/dL (8-26) Creatinine 1.6 mg/dL (0.7-1.3) Estimated GFR (Cockcroft-Gault) 41.0 Glucose Level 92 mg/dL (70-99) Calcium Level 7.5 mg/dL (8.5-10.1) Medications Active Scripts Medications Dose Route/Sig Max Daily Dose Days Date Category Avodart (Dutasteride) 0.5 Mg Capsule 1 Cap PO DAILY 08/12/17 Reported Docusate Sodium 100 Mg Capsule 2 Cap PO DAILY 08/12/17 Reported Caltrate 600 + D Tablet (Calcium Carbonate/Vitamin D3) 1 Each Tablet 1 Each PO 08/12/17 Reported Vitamin D (Cholecalciferol (Vitamin D3)) 2,000 Unit Capsule 1 Cap PO DAILY 08/12/17 Reported Carvedilol 6.25 Mg Tablet 0.5 Tab PO DAILY 08/12/17 Reported Lamictal (Lamotrigine) 100 Mg Tablet 2 Tab PO DAILY 08/12/17 Reported Levothyroxine Sodium 50 Mcg Tablet 1 Tab PO DAILY 08/12/17 Reported Impression . 1. Abnormal x-ray compatible with pneumonia, suspect gram negative. 2. Septic shock, improved with IV fluids and norepinephrine. 3. Mild protein malnutrition, present upon admission. 4. Tobacco abuse, in remission. 5. Hypothyroidism. 6. Dementia. 7. Acute toxic encephalopathy, present upon admission. 8. Hypernatremia 9. Hypokalemia . Plan . SEE ORDERS SPOKE WITH DAUGHTERS AT BEDSIDE IV LASIX FOR 3 DAYS SPOKE WITH RN INSERT TUBE FOR FEEDING PT IS DNR/DNI LONNIE MEREDITH MD Aug 16, 2017 10:37
[2017-08-16] MEDS ORDERED: IV DEXTROSE 5% 500 ML IV ONE (11:00)
[2017-08-16] MEDS ORDERED: POTASSIUM CHLORIDE 40 MEQ in IV DEXTROSE 5% 1,000 ML IV ONE (11:00)
--- NOTE | 2017-08-16 13:03 | RAD ---
EXAM: Abdomen, single view. HISTORY: Feeding tube placement. COMPARISON: None. FINDINGS: Frontal views of the abdomen are obtained. There is an enteric catheter looped within the esophagus. There are distended air-filled loops of small and large bowel throughout the abdomen. There is coarse diffuse increased interstitial opacity. There are cardiac pacemaker the fibular leads. There is degenerative change throughout the spine. There are suspected trace pleural effusions. IMPRESSION: 1. Enteric feeding catheter looped within the esophagus. Catheter repositioning and repeat radiographic evaluation is recommended. 2. Distended air-filled bowel throughout the abdomen. Correlate for ileus or distal partial obstruction. 3. Stable coarse increased interstitial markings due to infiltrate. This may be superimposed on chronic interstitial lung disease. 4. Suspected trace pleural effusions.
--- NOTE | 2017-08-16 13:17 | PDOC ---
PROGRESS NOTES Chief Complaint Chief Complaint 1. CAP 2. Severe sepsis with HYPOTENSION, infectious 3. Dementia 4. 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 HYPOTENSION 7. HYPOthyroidism - on synthroid 8. Elevated lactate\ 9. Hypoxic respi failure sec to CAP History of Present Illness History of Present Illness Pt seen at bedside in ICU. In mild distress today, breathing with NRB mask assistance, apparent use of accessory muscles of respiration. Pt has exhibited signs of worsening respiratory failure as well as confusion over the past 24-36 hours. Has started tube feeds in addition to assisted breathing. Appears critically ill with worsening electrolyte balance. Will add nephrology to ongoing subspecialty consults re: this acute finding. Vitals Vitals Vital Signs Date Time Temp Pulse Resp B/P (MAP) Pulse Ox O2 Delivery O2 Flow Rate FiO2 08/16/17 13:00 78 40 107/75 (86) 88 NonRebreather Mask 15.0 08/16/17 11:05 98.8 98.8 Physical Exam General: mild distress, Other (hRD Of hearing too) Heart: Regular rate, Normal S1, Normal S2 Lungs: Crackles Abdomen: Normal bowel sounds, Soft, No tenderness, No hepatosplenomegaly, No masses Extremities: No clubbing, No cyanosis, No edema, Normal pulses, No tenderness/ swelling Skin: No rashes, No breakdown, No significant lesion Labs LABS Laboratory Tests Test 08/15/17 13:55 08/16/17 03:30 O2 Saturation 87 % (92-99) Arterial Blood pH 7.37 (7.35-7.45) Arterial Blood pCO2 at Patient Temp 24 mmHg (35-46) Arterial Blood pO2 at Patient Temp 54 mmHg (65-108) Arterial Blood HCO3 14 mmol/L (21-28) Arterial Blood Base Excess -10 mmol/L (-3-3) FiO2 60 White Blood Count 14.6 x10^3/uL (4.0-11.0) Red Blood Count 4.33 x10^6/uL (4.30-5.70) Hemoglobin 13.6 g/dL (13.0-17.5) Hematocrit 39.5 % (39.0-53.0) Mean Corpuscular Volume 91 fL (79-100) Mean Corpuscular Hemoglobin 31 pg (25-35) Mean Corpuscular Hemoglobin Concent 34 g/dL (31-37) Red Cell Distribution Width 14.2 % (11.5-14.5) Platelet Count 150 x10^3/uL (140-400) Neutrophils (%) (Auto) 84 % (31-73) Lymphocytes (%) (Auto) 10 % (24-48) Monocytes (%) (Auto) 6 % (0-9) Eosinophils (%) (Auto) 0 % (0-3) Basophils (%) (Auto) 0 % (0-3) Neutrophils # (Auto) 12.3 x10^3uL (1.8-7.7) Lymphocytes # (Auto) 1.4 x10^3/uL (1.0-4.8) Monocytes # (Auto) 0.9 x10^3/uL (0.0-1.1) Eosinophils # (Auto) 0.0 x10^3/uL (0.0-0.7) Basophils # (Auto) 0.0 x10^3/uL (0.0-0.2) Sodium Level 150 mmol/L (136-145) Potassium Level 3.2 mmol/L (3.5-5.1) Chloride Level 111 mmol/L (98-107) Carbon Dioxide Level 23 mmol/L (21-32) Anion Gap 16 (6-14) Blood Urea Nitrogen 34 mg/dL (8-26) Creatinine 1.6 mg/dL (0.7-1.3) Estimated GFR (Cockcroft-Gault) 41.0 Glucose Level 92 mg/dL (70-99) Calcium Level 7.5 mg/dL (8.5-10.1) Review of Systems Review of Systems Pt AOCx0, in mild-moderate distress. Breathing with NRB assistance, accessory muscle use. Lung crackles present b/l. Normal heart rate. Assessment and Plan Assessmemt and Plan Problems Medical Problems: (1) Community acquired pneumonia Status: Acute (2) Dementia Status: Acute (3) Lactic acidosis Status: Acute (4) Severe sepsis Status: Acute 1. CAP 2. Severe sepsis with HYPOTENSION, infectious 3. Dementia 4. 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 HYPOTENSION 7. HYPOthyroidism - on synthroid 8. Elevated lactate\ 9. Hypoxic respi failure sec to CAP PLAN: Consult nephrology Continue BIPAP Continue tube feeds Continue ICU monitoring Continue ABx's Continue subspecialist consult(s) Prognosis guarded(?) Problems: Comment Review of Relevant I have reviewed the following items emmanuel (where applicable) has been applied. Labs Laboratory Tests Test 08/14/17 14:35 08/14/17 20:35 08/15/17 05:15 08/15/17 13:55 White Blood Count 17.8 x10^3/uL (4.0-11.0) 15.8 x10^3/uL (4.0-11.0) Red Blood Count 4.54 x10^6/uL (4.30-5.70) 4.35 x10^6/uL (4.30-5.70) Hemoglobin 14.1 g/dL (13.0-17.5) 13.6 g/dL (13.0-17.5) Hematocrit 42.1 % (39.0-53.0) 40.5 % (39.0-53.0) Mean Corpuscular Volume 93 fL (79-100) 93 fL (79-100) Mean Corpuscular Hemoglobin 31 pg (25-35) 31 pg (25-35) Mean Corpuscular Hemoglobin Concent 34 g/dL (31-37) 34 g/dL (31-37) Red Cell Distribution Width 14.4 % (11.5-14.5) 14.4 % (11.5-14.5) Platelet Count 162 x10^3/uL (140-400) 143 x10^3/uL (140-400) Sodium Level 142 mmol/L (136-145) 143 mmol/L (136-145) Potassium Level 3.7 mmol/L (3.5-5.1) 3.6 mmol/L (3.5-5.1) Chloride Level 109 mmol/L (98-107) 111 mmol/L (98-107) Carbon Dioxide Level 19 mmol/L (21-32) 19 mmol/L (21-32) Anion Gap 14 (6-14) 13 (6-14) Blood Urea Nitrogen 31 mg/dL (8-26) 27 mg/dL (8-26) Creatinine 1.7 mg/dL (0.7-1.3) 1.6 mg/dL (0.7-1.3) Estimated GFR (Cockcroft-Gault) 38.2 41.0 Glucose Level 101 mg/dL (70-99) 111 mg/dL (70-99) Calcium Level 7.5 mg/dL (8.5-10.1) 7.0 mg/dL (8.5-10.1) Vancomycin Level Trough 13.4 mcg/mL (10.0-20.0) Vancomycin Last Dose Date 08/13/17 Vancomycin Last Dose Time 2100 Neutrophils (%) (Auto) 79 % (31-73) Lymphocytes (%) (Auto) 14 % (24-48) Monocytes (%) (Auto) 7 % (0-9) Eosinophils (%) (Auto) 0 % (0-3) Basophils (%) (Auto) 0 % (0-3) Neutrophils # (Auto) 12.5 x10^3uL (1.8-7.7) Lymphocytes # (Auto) 2.2 x10^3/uL (1.0-4.8) Monocytes # (Auto) 1.1 x10^3/uL (0.0-1.1) Eosinophils # (Auto) 0.0 x10^3/uL (0.0-0.7) Basophils # (Auto) 0.0 x10^3/uL (0.0-0.2) O2 Saturation 87 % (92-99) Arterial Blood pH 7.37 (7.35-7.45) Arterial Blood pCO2 at Patient Temp 24 mmHg (35-46) Arterial Blood pO2 at Patient Temp 54 mmHg (65-108) Arterial Blood HCO3 14 mmol/L (21-28) Arterial Blood Base Excess -10 mmol/L (-3-3) FiO2 60 Test 08/16/17 03:30 White Blood Count 14.6 x10^3/uL (4.0-11.0) Red Blood Count 4.33 x10^6/uL (4.30-5.70) Hemoglobin 13.6 g/dL (13.0-17.5) Hematocrit 39.5 % (39.0-53.0) Mean Corpuscular Volume 91 fL (79-100) Mean Corpuscular Hemoglobin 31 pg (25-35) Mean Corpuscular Hemoglobin Concent 34 g/dL (31-37) Red Cell Distribution Width 14.2 % (11.5-14.5) Platelet Count 150 x10^3/uL (140-400) Neutrophils (%) (Auto) 84 % (31-73) Lymphocytes (%) (Auto) 10 % (24-48) Monocytes (%) (Auto) 6 % (0-9) Eosinophils (%) (Auto) 0 % (0-3) Basophils (%) (Auto) 0 % (0-3) Neutrophils # (Auto) 12.3 x10^3uL (1.8-7.7) Lymphocytes # (Auto) 1.4 x10^3/uL (1.0-4.8) Monocytes # (Auto) 0.9 x10^3/uL (0.0-1.1) Eosinophils # (Auto) 0.0 x10^3/uL (0.0-0.7) Basophils # (Auto) 0.0 x10^3/uL (0.0-0.2) Sodium Level 150 mmol/L (136-145) Potassium Level 3.2 mmol/L (3.5-5.1) Chloride Level 111 mmol/L (98-107) Carbon Dioxide Level 23 mmol/L (21-32) Anion Gap 16 (6-14) Blood Urea Nitrogen 34 mg/dL (8-26) Creatinine 1.6 mg/dL (0.7-1.3) Estimated GFR (Cockcroft-Gault) 41.0 Glucose Level 92 mg/dL (70-99) Calcium Level 7.5 mg/dL (8.5-10.1) Laboratory Tests Test 08/15/17 13:55 08/16/17 03:30 O2 Saturation 87 % (92-99) Arterial Blood pH 7.37 (7.35-7.45) Arterial Blood pCO2 at Patient Temp 24 mmHg (35-46) Arterial Blood pO2 at Patient Temp 54 mmHg (65-108) Arterial Blood HCO3 14 mmol/L (21-28) Arterial Blood Base Excess -10 mmol/L (-3-3) FiO2 60 White Blood Count 14.6 x10^3/uL (4.0-11.0) Red Blood Count 4.33 x10^6/uL (4.30-5.70) Hemoglobin 13.6 g/dL (13.0-17.5) Hematocrit 39.5 % (39.0-53.0) Mean Corpuscular Volume 91 fL (79-100) Mean Corpuscular Hemoglobin 31 pg (25-35) Mean Corpuscular Hemoglobin Concent 34 g/dL (31-37) Red Cell Distribution Width 14.2 % (11.5-14.5) Platelet Count 150 x10^3/uL (140-400) Neutrophils (%) (Auto) 84 % (31-73) Lymphocytes (%) (Auto) 10 % (24-48) Monocytes (%) (Auto) 6 % (0-9) Eosinophils (%) (Auto) 0 % (0-3) Basophils (%) (Auto) 0 % (0-3) Neutrophils # (Auto) 12.3 x10^3uL (1.8-7.7) Lymphocytes # (Auto) 1.4 x10^3/uL (1.0-4.8) Monocytes # (Auto) 0.9 x10^3/uL (0.0-1.1) Eosinophils # (Auto) 0.0 x10^3/uL (0.0-0.7) Basophils # (Auto) 0.0 x10^3/uL (0.0-0.2) Sodium Level 150 mmol/L (136-145) Potassium Level 3.2 mmol/L (3.5-5.1) Chloride Level 111 mmol/L (98-107) Carbon Dioxide Level 23 mmol/L (21-32) Anion Gap 16 (6-14) Blood Urea Nitrogen 34 mg/dL (8-26) Creatinine 1.6 mg/dL (0.7-1.3) Estimated GFR (Cockcroft-Gault) 41.0 Glucose Level 92 mg/dL (70-99) Calcium Level 7.5 mg/dL (8.5-10.1) Microbiology 08/12/17 Blood Culture - Preliminary, Resulted NO GROWTH AFTER 3 DAYS Medications Current Medications Sodium Chloride 1,000 ml @ 2,040 mls/hr Q30M IV Last administered on t 18:30; Start 08/12/17 at 18:21; Stop 08/12/17 at 19:21; Status DC Levofloxacin/ Dextrose (Levaquin Per Pharmacy) 1 each PRN DAILY PRN MC SEE COMMENTS; Start 08/12/17 at 18:30; Stop 08/14/17 at 08:56; Status DC Calcium Gluconate (Calcium Gluconate) 2,000 mg 1X ONCE IVP Last administered on 08/12/17 19:12; Start 08/12/17 at 18:30; Stop 08/12/17 at 18:38; Status DC Docusate Sodium (Colace) 200 mg DAILY PO Last administered on 08/15/17 13:43 ; Start 08/13/17 at 09:00 Dutasteride (Avodart) 0.5 mg DAILY PO Last administered on 08/16/17 08:54; Start 08/13/17 at 09:00 Lamotrigine (LaMICtal) 200 mg DAILY PO Last administered on 08/16/17 08:54; Start 08/13/17 at 09:00 Levothyroxine Sodium (Synthroid) 50 mcg DAILY PO Last administered on 08:54; Start 08/13/17 at 09:00 Vitamin D (Vitamin D3) 2,000 unit DAILY PO Last administered on 08/15/17 13: 43; Start 08/13/17 at 09:00 Calcium/Vitamin D (Oscal D 250mg/ 125uts) 1 tab [id number] PO Last administered on 08/15/17 13:43; Start 08/13/17 at 08:00 Albuterol/ Ipratropium (Duoneb) 3 ml RTQID NEB ; Start 08/12/17 at 20:00; Status Cancel Guaifenesin (Robitussin Dm) 10 ml PRN Q6HRS PRN PO COUGH; Start 08/12/17 at 18: 45 Levofloxacin/ Dextrose 150 ml @ As Directed STK-MED ONCE IV ; Start 08/12/17 at 18:32; Stop 08/12/17 at 18:33; Status DC Levofloxacin/ Dextrose 150 ml @ 100 mls/hr ONCE ONCE IV Last administered on 08/12/17 19:29; Start 08/12/17 at 18:45; Stop 08/12/17 at 20:14; Status DC Enoxaparin Sodium (Lovenox 40mg Syringe) 40 mg Q24H SQ Last administered on 19:46; Start 08/12/17 at 19:00; Stop 08/15/17 at 12:39; Status DC Albuterol/ Ipratropium (Duoneb) 3 ml RTQID NEB Last administered on 08/16/17 11:59; Start 08/12/17 at 20:00 Benzonatate (Tessalon Perle) 100 mg [id number] PO Last administered on 08/16/17 08:54; Start 08/12/17 at 21:00 Levofloxacin/ Dextrose 50 ml @ 50 mls/hr Q24H IV ; Start 08/13/17 at 19:30; Stop 08/13/17 at 19:30; Status DC Sodium Chloride 1,000 ml @ 100 mls/hr Q10H IV Last administered on 08/13/17 07:44; Start 08/12/17 at 19:41; Stop 08/13/17 at 19:40; Status DC Norepinephrine Bitartrate 250 ml @ 0 mls/hr CONT PRN IV SEE I/O RECORD Last administered on 08/14/17 19:46; Start 08/12/17 at 21:00 Vancomycin HCl 250 ml @ 250 mls/hr 1X ONCE IV Last administered on 08/12/17 21:00; Start 08/12/17 at 21:00; Stop 08/12/17 at 21:19; Status DC Vancomycin HCl 1.75 gm/Dextrose 500 ml @ 250 mls/hr 1X ONCE IV Last administered on 08/12/17 21:18; Start 08/12/17 at 22:00; Stop 08/12/17 at 23:59 ; Status DC Vancomycin HCl (Vanco Per Pharmacy) 1 each PRN DAILY PRN MC SEE COMMENTS Last administered on 08/14/17 23:02; Start 08/12/17 at 21:30; Stop 08/15/17 at 08: 44; Status DC Piperacillin Sod/ Tazobactam Sod 3.375 gm/Dextrose 50 ml @ 100 mls/hr Q6HRS IV ; Start 08/13/17 at 08:30; Status Cancel Vancomycin HCl (Vanco Per Pharmacy) 1 each PRN DAILY PRN MC SEE COMMENTS; Start 08/13/17 at 08:15; Stop 08/13/17 at 08:19; Status DC Vancomycin HCl 1 gm/Dextrose 250 ml @ 250 mls/hr Q24H IV Last administered on 08/14/17 21:21; Start 08/13/17 at 21:00; Stop 08/15/17 at 08:43; Status DC Vancomycin HCl 1 each 1X ONCE MC ; Start 08/14/17 at 20:30; Stop 08/14/17 at 20 :31; Status DC Piperacillin Sod/ Tazobactam Sod (Zosyn) 3.375 gm Q6HRS IVP Last administered on 08/15/17 05:28; Start 08/13/17 at 08:45; Stop 08/15/17 at 08:46; Status DC Levofloxacin/ Dextrose 150 ml @ 100 mls/hr Q48H IV Last administered on 19:45; Start 08/14/17 at 19:00 Diphenhydramine HCl (Benadryl) 25 mg PRN Q6HRS PRN PO ITCHING Last administered on 08/13/17 19:57; Start 08/13/17 at 19:45 Zolpidem Tartrate (Ambien) 5 mg 1X ONCE PO ; Start 08/13/17 at 21:30; Stop 08/13/17 at 21:31; Status DC Sodium Chloride 1,000 ml @ 100 mls/hr Q10H IV Last administered on 08/14/17 18:15; Start 08/14/17 at 08:00; Stop 08/15/17 at 19:03; Status DC Lactobacillus Rhamnosus (Culturelle) 1 cap BID PO Last administered on 08:54; Start 08/14/17 at 21:00 Sodium Chloride 500 ml @ 500 mls/hr 1X ONCE IV Last administered on 19:48; Start 08/14/17 at 19:00; Stop 08/14/17 at 19:59; Status DC Lorazepam (Ativan) 1 mg PRN Q2HRS PRN PO ANXIETY / AGITATION Last administered on 08/15/17 13:42; Start 08/14/17 at 19:30 Furosemide (Lasix) 20 mg 1X ONCE IVP Last administered on 08/15/17 08:30; Start 08/15/17 at 08:30; Stop 08/15/17 at 08:31; Status DC Enoxaparin Sodium (Lovenox 30mg Syringe) 30 mg Q24H SQ Last administered on 17:55; Start 08/15/17 at 17:00 Furosemide (Lasix) 40 mg DAILY IVP Last administered on 08/16/17 08:54; Start 08/15/17 at 15:00; Stop 08/18/17 at 09:00 Haloperidol Lactate (Haldol) 5 mg PRN Q6HRS PRN IVP AGITATION Last administered on 08/16/17 00:08; Start 08/15/17 at 18:15 Diphenhydramine HCl (Benadryl) 25 mg PRN Q6HRS PRN IVP ITCHING Last administered on 08/16/17 03:32; Start 08/15/17 at 19:15 Dextrose 500 ml @ 500 mls/hr 1X ONCE IV Last administered on 08/16/17 11:00 ; Start 08/16/17 at 11:00; Stop 08/16/17 at 11:59; Status DC Potassium Chloride 40 meq/ Dextrose 1,020 ml @ 75 mls/hr 1X ONCE IV Last administered on 08/16/17 12:51; Start 08/16/17 at 11:00; Stop 08/17/17 at 00 :35 Active Scripts Active Reported Avodart (Dutasteride) 0.5 Mg Capsule 1 Cap PO DAILY Docusate Sodium 100 Mg Capsule 2 Cap PO DAILY Caltrate 600 + D Tablet (Calcium Carbonate/Vitamin D3) 1 Each Tablet 1 Each PO Vitamin D (Cholecalciferol (Vitamin D3)) 2,000 Unit Capsule 1 Cap PO DAILY Carvedilol 6.25 Mg Tablet 0.5 Tab PO DAILY Lamictal (Lamotrigine) 100 Mg Tablet 2 Tab PO DAILY Levothyroxine Sodium 50 Mcg Tablet 1 Tab PO DAILY Vitals/I & O Vital Sign - Last 24 Hours 08/15/17 08/15/17 08/15/17 08/15/17 14:00 15:00 16:00 16:00 Pulse 73 73 73 Resp 33 33 33 B/P (MAP) 148/76 (100) 155/76 (102) 152/72 (98) Pulse Ox 96 96 96 O2 Delivery Simple Mask Simple Mask Simple Mask Nasal Cannula O2 Flow Rate 6.0 6.0 6.0 3.0 08/15/17 08/15/17 08/15/17 08/15/17 16:09 17:00 18:00 19:00 Pulse 73 73 83 Resp 33 33 35 B/P (MAP) 147/83 (104) 125/73 (90) 125/71 (89) Pulse Ox 97 96 96 94 O2 Delivery NonRebreather Mask Simple Mask Simple Mask NonRebreather Mask O2 Flow Rate 15.0 6.0 6.0 15.0 08/15/17 08/15/17 08/15/17 08/15/17 19:49 20:00 20:00 21:00 Temp 98.9 98.9 Pulse 85 80 Resp 38 35 B/P (MAP) 135/66 (89) 124/54 (77) Pulse Ox 94 93 92 O2 Delivery NonRebreather Mask NonRebreather Mask Non-Rebreather NonRebreather Mask O2 Flow Rate 15.0 15.0 15.0 15.0 08/15/17 08/15/17 08/16/17 08/16/17 22:00 23:00 00:00 00:00 Temp 98.1 98.1 Pulse 69 68 77 Resp 29 34 32 B/P (MAP) 92/46 (61) 104/44 (64) 96/52 (67) Pulse Ox 94 96 94 O2 Delivery NonRebreather Mask NonRebreather Mask NonRebreather Mask Non- Rebreather O2 Flow Rate 15.0 15.0 15.0 15.0 08/16/17 08/16/17 08/16/17 08/16/17 01:00 02:00 03:00 04:00 Pulse 67 67 73 Resp 28 30 30 B/P (MAP) 90/50 (63) 103/49 (67) 135/56 (82) Pulse Ox 95 96 95 O2 Delivery NonRebreather Mask NonRebreather Mask NonRebreather Mask Non- Rebreather O2 Flow Rate 15.0 15.0 15.0 15.0 08/16/17 08/16/17 08/16/17 08/16/17 04:00 05:00 06:00 07:00 Temp 99.0 98.0 99.0 98.0 Pulse 75 69 68 70 Resp 31 29 32 34 B/P (MAP) 116/72 (87) 101/51 (68) 100/47 (64) 117/63 (81) Pulse Ox 92 94 95 95 O2 Delivery NonRebreather Mask NonRebreather Mask NonRebreather Mask Ventilator O2 Flow Rate 15.0 15.0 15.0 15.0 08/16/17 08/16/17 08/16/17 08/16/17 07:43 08:00 08:02 09:00 Pulse 70 73 Resp 34 38 B/P (MAP) 119/66 (83) 127/66 (86) Pulse Ox 94 95 95 O2 Delivery NonRebreather Mask Ventilator Non-Rebreather Ventilator O2 Flow Rate 15.0 15.0 15.0 15.0 08/16/17 08/16/17 08/16/17 08/16/17 10:00 11:00 11:05 11:59 Temp 98.8 98.8 Pulse 72 70 Resp 36 35 B/P (MAP) 113/61 (78) 115/53 (73) Pulse Ox 92 94 91 O2 Delivery Ventilator NonRebreather Mask NonRebreather Mask O2 Flow Rate 15.0 15.0 15.0 08/16/17 08/16/17 12:00 13:00 Pulse 74 78 Resp 33 40 B/P (MAP) 121/64 (83) 107/75 (86) Pulse Ox 90 88 O2 Delivery NonRebreather Mask NonRebreather Mask O2 Flow Rate 15.0 15.0 Intake and Output 08/16/17 08/16/17 08/17/17 15:00 23:00 07:00 Intake Total 620 ml Output Total 1095 ml Balance -475 ml DAINA WASHINGTON III DO Aug 16, 2017 13:17
--- NOTE | 2017-08-16 14:43 | RAD ---
EXAM: Abdomen, single view. HISTORY: Dobbhoff placement. COMPARISON: 08/16/2017. FINDINGS: Frontal views of the abdomen are obtained. There is an enteric feeding catheter looped at the level of the gastroesophageal junction or within the gastric cardia. There are prominent air-filled small bowel throughout the abdomen. There are coarse diffuse increased interstitial markings. There are trace pleural effusions. There is a cardiac pacemaker defibrillator with leads in expected position. IMPRESSION: 1. Enteric catheter looped at the level of the gastroesophageal junction or proximal gastric cardia. Tube advancement or repositioning and repeat radiographic evaluation is recommended. 2. Stable prominent air-filled loops of bowel throughout the abdomen. 3. Stable coarse diffuse increased interstitial opacity throughout both lungs.
[2017-08-16] MEDS: PIPERACILLIN/TAZO IV Push 2.25 GM VIAL. IVP SCH (15:16)
[2017-08-16] MEDS: ENOXAPARIN 30 MG/0.3 ML SYRINGE. SQ SCH (17:13)
[2017-08-16] MEDS ORDERED: MORPHINE SULFATE 4 MG/ML DISP.SYRIN. IV PRN (17:45)
[2017-08-16] MEDS: MORPHINE SULFATE 4 MG/ML DISP.SYRIN. IV PRN (17:58)
[2017-08-16] MEDS ORDERED: PIPERACILLIN/TAZOBACTAM 2.25 GM in IV DEXTROSE 5% 50 ML IV SCH (18:00)
--- NOTE | 2017-08-16 18:31 | RAD ---
EXAM: Abdomen one view. HISTORY: Feeding tube placement. COMPARISON: August 16, 2017. FINDINGS: A frontal view of the abdomen is obtained. The feeding tube loops within the proximal stomach. Pacemaker leads are partially visualized. There is mild diffuse gaseous distention of the small bowel. There is gas distally. Interstitial infiltrates are seen in the right lung base. IMPRESSION: 1. The feeding tube is looped within the proximal stomach. Electronically signed by: Farrukh Contreras MD (08/16/2017 6:27 PM) [facility]
[2017-08-17] VITALS (24 sets, daily range): BP systolic 87–120; BP diastolic 45–62
[2017-08-17] MEDS: PIPERACILLIN/TAZO IV Push 2.25 GM VIAL. IVP SCH ×4 (00:19→16:31)
[2017-08-17 05:38] LABS: BASO # 0.1 x10^3/uL (0.0-0.2); BASO % 0 % (0-3); EOS % 0 % (0-3); HEMATOCRIT 38.7 % (39.0-53.0); LYMPH # 1.7 x10^3/uL (1.0-4.8); LYMPH % 12 % (24-48); MEAN CORPUSCULAR HEMOGLOBIN 31 pg (25-35); MEAN CORPUSCULAR HGB CONC 34 g/dL (31-37); MEAN CORPUSCULAR VOLUME 92 fL (79-100); MONO % 7 % (0-9); NEUT % 81 % (31-73); PLATELET COUNT 138 x10^3/uL (140-400); RED BLOOD COUNT 4.21 x10^6/uL (4.30-5.70); RED CELL DISTRIBUTION WIDTH 14.4 % (11.5-14.5); WHITE BLOOD COUNT 13.7 x10^3/uL (4.0-11.0)
[2017-08-17 05:51] LABS: ALBUMIN 1.9 g/dL (3.4-5.0); ALBUMIN/GLOBULIN RATIO 0.5 (1.0-1.7); CALCIUM 7.3 mg/dL (8.5-10.1); CREATININE 1.5 mg/dL (0.7-1.3); GFR 44.2; TOTAL BILIRUBIN 1.1 mg/dL (0.2-1.0); TOTAL PROTEIN 5.9 g/dL (6.4-8.2)
[2017-08-17 05:55] LABS: POTASSIUM 2.9 mmol/L (3.5-5.1)
[2017-08-17] MEDS ORDERED: POTASSIUM CHLORIDE 20 MEQ/15 ML ORAL LIQUID. PEG ONE ×2 (07:00→16:00)
[2017-08-17] MEDS: IPRATRPIUM/ALBUTEROL 0.5/2.5MG 3 ML NEBU. NEB SCH ×4 (07:39→19:54)
--- NOTE | 2017-08-17 08:18 | RAD ---
EXAM: Chest, single view. HISTORY: Respiratory failure. COMPARISON: 08/15/2017. FINDINGS: A frontal view of the chest is obtained. There has been slight decrease in interstitial infiltrate throughout the right lung and increase in interstitial infiltrate throughout the left lung. This may be superimposed on chronic interstitial changes. There is no consolidation. There are suspected stable trace pleural effusions. There is no pneumothorax. The heart is normal in size. There is a cardiac pacemaker defibrillator with leads in expected position. There is an enteric catheter looped within the gastric cardia with the tip pointed cephalad at the level of the gastroesophageal junction. IMPRESSION: 1. Decreased right and increased left lung diffuse interstitial infiltrate. This may be superimposed on chronic interstitial change. 2. Stable suspected small pleural effusions. 3. Enteric feeding catheter looped within the gastric cardia with the tip oriented cephalad at the level of the gastroesophageal junction.
[2017-08-17] MEDS: FUROSEMIDE 40 MG/4 ML VIAL. IVP SCH (08:23)
[2017-08-17] MEDS: DOCUSATE 100 MG/10 ML SOLUTION. PO SCH (08:23)
[2017-08-17] MEDS: LACTOBACILLUS RHAMNOSUS GG 1 CAPSULE. PO SCH ×2 (08:24→21:23)
[2017-08-17] MEDS: LEVOTHYROXINE 50 MCG TABLET PO SCH (08:24)
[2017-08-17] MEDS: lamoTRIgine 100 MG TABLET. PO SCH (08:24)
[2017-08-17] MEDS: DUTASTERIDE 0.5 MG CAPSULE PO SCH (08:24)
--- NOTE | 2017-08-17 09:10 | PDOC ---
Infectious Disease Note Subjective Subjective On BiPAP FiO2 70% Tube feedings via [place]obb[place] No fever ROS ROS Unobtainable Vital Sign Vital Signs Vital Signs Date Time Temp Pulse Resp B/P (MAP) Pulse Ox O2 Delivery O2 Flow Rate FiO2 08/17/17 09:03 94 BiPAP/CPAP 08/17/17 08:00 96 25 115/60 (78) 08/17/17 07:00 98.3 98.3 08/16/17 17:58 15.0 Physical Exam PHYSICAL EXAM GENERAL: On BiPAP, weak appearing LUNGS: Diminished aeration, nonlabored HEART: S1S2, pacemaker ABD: Soft, NT, BS active : Garcia EXT: No edema, no cyanosis FRIT MIXER: less responsive to verbal stimuli SKIN: No rash IV: ok Labs Lab Laboratory Tests Test 08/17/17 04:30 08/17/17 05:10 Sodium Level 145 mmol/L (136-145) Potassium Level 2.9 mmol/L (3.5-5.1) Chloride Level 110 mmol/L (98-107) Carbon Dioxide Level 26 mmol/L (21-32) Anion Gap 9 (6-14) Blood Urea Nitrogen 42 mg/dL (8-26) Creatinine 1.5 mg/dL (0.7-1.3) Estimated GFR (Cockcroft-Gault) 44.2 BUN/Creatinine Ratio 28 (6-20) Glucose Level 139 mg/dL (70-99) Calcium Level 7.3 mg/dL (8.5-10.1) Total Bilirubin 1.1 mg/dL (0.2-1.0) Aspartate Amino Transf (AST/SGOT) 48 U/L (15-37) Alanine Aminotransferase (ALT/SGPT) 39 U/L (16-63) Alkaline Phosphatase 59 U/L (46-116) Total Protein 5.9 g/dL (6.4-8.2) Albumin 1.9 g/dL (3.4-5.0) Albumin/Globulin Ratio 0.5 (1.0-1.7) White Blood Count 13.7 x10^3/uL (4.0-11.0) Red Blood Count 4.21 x10^6/uL (4.30-5.70) Hemoglobin 13.0 g/dL (13.0-17.5) Hematocrit 38.7 % (39.0-53.0) Mean Corpuscular Volume 92 fL (79-100) Mean Corpuscular Hemoglobin 31 pg (25-35) Mean Corpuscular Hemoglobin Concent 34 g/dL (31-37) Red Cell Distribution Width 14.4 % (11.5-14.5) Platelet Count 138 x10^3/uL (140-400) Neutrophils (%) (Auto) 81 % (31-73) Lymphocytes (%) (Auto) 12 % (24-48) Monocytes (%) (Auto) 7 % (0-9) Eosinophils (%) (Auto) 0 % (0-3) Basophils (%) (Auto) 0 % (0-3) Neutrophils # (Auto) 11.1 x10^3uL (1.8-7.7) Lymphocytes # (Auto) 1.7 x10^3/uL (1.0-4.8) Monocytes # (Auto) 0.9 x10^3/uL (0.0-1.1) Eosinophils # (Auto) 0.0 x10^3/uL (0.0-0.7) Basophils # (Auto) 0.1 x10^3/uL (0.0-0.2) Magnesium Level 2.2 mg/dL (1.8-2.4) CXR IMPRESSION: 1. Decreased right and increased left lung diffuse interstitial infiltrate. This may be superimposed on chronic interstitial change. 2. Stable suspected small pleural effusions. 3. Enteric feeding catheter looped within the gastric cardia with the tip oriented cephalad at the level of the gastroesophageal junction. Micro BLOOD CULTURE Preliminary NO GROWTH AFTER 4 DAYS Objective Assessment Sepsis Right lower lobe infiltrate. Leukocytosis, trending down MANNY Elevated lactic acid Pulm venous congestion Hypoxic respiratory failure secondary to COPD Hard of hearing. Right upper extremity superficial line thrombophlebitis. History of dementia. History of hypertension. History of hypothyroidism. Plan Plan of Care Zosyn and Levaquin. Sputum not collected Supportive care Attending Co-Sign The patient was seen and interviewed as well as examined at the bedside. The chart was reviewed. The case was discussed. Agree with the plan of care. NANCY YANG APRN Aug 17, 2017 09:10 GARDENIA YADAV MD Aug 17, 2017 13:52
--- NOTE | 2017-08-17 10:02 | CONS ---
DATE OF CONSULTATION: REASON FOR CONSULTATION: Renal failure. HISTORY OF PRESENT ILLNESS: This is an 87-year-old gentleman who has been admitted at the request of Dr. Sykes to assist in evaluation of renal failure. The patient has a history of hypertension, seizure disorder and dementia. He resides with his daughter. The patient presents with respiratory failure associated with infectious pneumonitis. He was initially admitted with septic shock. He has required IV fluid administration, vasopressor support and antibiotics. Due to increased level of azotemia, Nephrology evaluation was requested. PAST MEDICAL HISTORY: Hypertension, hypothyroidism, seizures, tobacco use, dementia. ALLERGIES: None. MEDICATIONS: Per med list. FAMILY HISTORY: Noncontributory. SOCIAL HISTORY: The patient resides with assistance from his daughter, previous smoker, remote. REVIEW OF SYSTEMS: Not obtainable from the patient. PHYSICAL EXAMINATION: GENERAL APPEARANCE: The patient appears his stated age and appears acutely ill. HEENT: Oxygen facemask in place ____. Eyes were somewhat sunken. Mouth and nasal passage look clear. NECK: No increased JVD. No thyromegaly, mass, adenopathy. LUNGS: Scattered rhonchi. CARDIAC: Without S3 or rub. ABDOMEN: Soft and nontender. EXTREMITIES: Without edema. NEUROPSYCHIATRIC: Confused. LABORATORY DATA: Sodium 150, potassium 3.2, chloride 111, CO2 of 23, BUN 34, creatinine 1.6, GFR of 41. White count 14.6, hemoglobin 13.6, hematocrit 39.5. IMPRESSION: 1. Renal failure--Occurring in an 87-year-old gentleman with infectious pneumonitis and associated sepsis syndrome, likely secondary to acute tubular necrosis. 2. Hypernatremia due to free water deficits. 3. Lactic acidosis due to sepsis. 4. Hypokalemia. RECOMMENDATIONS: 1. Supplement potassium 2. Increase free water administration. 3. Continue antibiotics and vasopressor support as you are doing. 4. The patient is DNR, we certainly concur with the same. KIM MOSQUERA MD DR: REID/victoria JOB#: [id number] / [id number]
--- NOTE | 2017-08-17 14:31 | PDOC ---
PROGRESS NOTES Subjective Subjective SEEN IN FOLLOW UP OF ARF AND HYPOK+ Objective Objective Vital Signs Date Time Temp Pulse Resp B/P (MAP) Pulse Ox O2 Delivery O2 Flow Rate FiO2 08/17/17 14:00 92 30 101/57 (72) 96 BiPAP/CPAP 08/17/17 11:00 99.8 99.8 08/16/17 17:58 15.0 Intake and Output 08/18/17 07:00 Intake Total 100 ml Output Total 950 ml Balance -850 ml Other 100 ml Output Urine Total 950 ml Physical Exam Abdomen: Normal bowel sounds, Soft, No tenderness, No hepatosplenomegaly, No masses Heart: Regular rate, Normal S1, Normal S2, No murmurs, Gallops Extremities: No clubbing, No cyanosis, No edema, Normal pulses, No tenderness/ swelling General: Other (SOMNULENT) Lungs: Other (ON BIPAP) Diagnosis RESPIRATORY FAILURE: Acute RENAL FAILURE: Acute (Acute tubular necrosis) Assessment Assessment Problems Medical Problems: (1) Community acquired pneumonia Status: Acute (2) Dementia Status: Acute (3) Lactic acidosis Status: Acute (4) Severe sepsis Status: Acute Plan Plan of Care STABLE RENAL FUNCTION. K+ STILL LOW AND SUPP ORDERED Comment Review of Relevant I have reviewed the following items emmanuel (where applicable) has been applied. Labs Laboratory Tests Test 08/16/17 03:30 08/17/17 04:30 08/17/17 05:10 08/17/17 10:20 White Blood Count 14.6 x10^3/uL (4.0-11.0) 13.7 x10^3/uL (4.0-11.0) Red Blood Count 4.33 x10^6/uL (4.30-5.70) 4.21 x10^6/uL (4.30-5.70) Hemoglobin 13.6 g/dL (13.0-17.5) 13.0 g/dL (13.0-17.5) Hematocrit 39.5 % (39.0-53.0) 38.7 % (39.0-53.0) Mean Corpuscular Volume 91 fL (79-100) 92 fL (79-100) Mean Corpuscular Hemoglobin 31 pg (25-35) 31 pg (25-35) Mean Corpuscular Hemoglobin Concent 34 g/dL (31-37) 34 g/dL (31-37) Red Cell Distribution Width 14.2 % (11.5-14.5) 14.4 % (11.5-14.5) Platelet Count 150 x10^3/uL (140-400) 138 x10^3/uL (140-400) Neutrophils (%) (Auto) 84 % (31-73) 81 % (31-73) Lymphocytes (%) (Auto) 10 % (24-48) 12 % (24-48) Monocytes (%) (Auto) 6 % (0-9) 7 % (0-9) Eosinophils (%) (Auto) 0 % (0-3) 0 % (0-3) Basophils (%) (Auto) 0 % (0-3) 0 % (0-3) Neutrophils # (Auto) 12.3 x10^3uL (1.8-7.7) 11.1 x10^3uL (1.8-7.7) Lymphocytes # (Auto) 1.4 x10^3/uL (1.0-4.8) 1.7 x10^3/uL (1.0-4.8) Monocytes # (Auto) 0.9 x10^3/uL (0.0-1.1) 0.9 x10^3/uL (0.0-1.1) Eosinophils # (Auto) 0.0 x10^3/uL (0.0-0.7) 0.0 x10^3/uL (0.0-0.7) Basophils # (Auto) 0.0 x10^3/uL (0.0-0.2) 0.1 x10^3/uL (0.0-0.2) Sodium Level 150 mmol/L (136-145) 145 mmol/L (136-145) Potassium Level 3.2 mmol/L (3.5-5.1) 2.9 mmol/L (3.5-5.1) 3.0 mmol/L (3.5-5.1) Chloride Level 111 mmol/L (98-107) 110 mmol/L (98-107) Carbon Dioxide Level 23 mmol/L (21-32) 26 mmol/L (21-32) Anion Gap 16 (6-14) 9 (6-14) Blood Urea Nitrogen 34 mg/dL (8-26) 42 mg/dL (8-26) Creatinine 1.6 mg/dL (0.7-1.3) 1.5 mg/dL (0.7-1.3) Estimated GFR (Cockcroft-Gault) 41.0 44.2 Glucose Level 92 mg/dL (70-99) 139 mg/dL (70-99) Calcium Level 7.5 mg/dL (8.5-10.1) 7.3 mg/dL (8.5-10.1) BUN/Creatinine Ratio 28 (6-20) Total Bilirubin 1.1 mg/dL (0.2-1.0) Aspartate Amino Transf (AST/SGOT) 48 U/L (15-37) Alanine Aminotransferase (ALT/SGPT) 39 U/L (16-63) Alkaline Phosphatase 59 U/L (46-116) Total Protein 5.9 g/dL (6.4-8.2) Albumin 1.9 g/dL (3.4-5.0) Albumin/Globulin Ratio 0.5 (1.0-1.7) Magnesium Level 2.2 mg/dL (1.8-2.4) Laboratory Tests Test 08/17/17 04:30 08/17/17 05:10 08/17/17 10:20 Sodium Level 145 mmol/L (136-145) Potassium Level 2.9 mmol/L (3.5-5.1) 3.0 mmol/L (3.5-5.1) Chloride Level 110 mmol/L (98-107) Carbon Dioxide Level 26 mmol/L (21-32) Anion Gap 9 (6-14) Blood Urea Nitrogen 42 mg/dL (8-26) Creatinine 1.5 mg/dL (0.7-1.3) Estimated GFR (Cockcroft-Gault) 44.2 BUN/Creatinine Ratio 28 (6-20) Glucose Level 139 mg/dL (70-99) Calcium Level 7.3 mg/dL (8.5-10.1) Total Bilirubin 1.1 mg/dL (0.2-1.0) Aspartate Amino Transf (AST/SGOT) 48 U/L (15-37) Alanine Aminotransferase (ALT/SGPT) 39 U/L (16-63) Alkaline Phosphatase 59 U/L (46-116) Total Protein 5.9 g/dL (6.4-8.2) Albumin 1.9 g/dL (3.4-5.0) Albumin/Globulin Ratio 0.5 (1.0-1.7) White Blood Count 13.7 x10^3/uL (4.0-11.0) Red Blood Count 4.21 x10^6/uL (4.30-5.70) Hemoglobin 13.0 g/dL (13.0-17.5) Hematocrit 38.7 % (39.0-53.0) Mean Corpuscular Volume 92 fL (79-100) Mean Corpuscular Hemoglobin 31 pg (25-35) Mean Corpuscular Hemoglobin Concent 34 g/dL (31-37) Red Cell Distribution Width 14.4 % (11.5-14.5) Platelet Count 138 x10^3/uL (140-400) Neutrophils (%) (Auto) 81 % (31-73) Lymphocytes (%) (Auto) 12 % (24-48) Monocytes (%) (Auto) 7 % (0-9) Eosinophils (%) (Auto) 0 % (0-3) Basophils (%) (Auto) 0 % (0-3) Neutrophils # (Auto) 11.1 x10^3uL (1.8-7.7) Lymphocytes # (Auto) 1.7 x10^3/uL (1.0-4.8) Monocytes # (Auto) 0.9 x10^3/uL (0.0-1.1) Eosinophils # (Auto) 0.0 x10^3/uL (0.0-0.7) Basophils # (Auto) 0.1 x10^3/uL (0.0-0.2) Magnesium Level 2.2 mg/dL (1.8-2.4) Microbiology 08/12/17 Blood Culture - Preliminary, Resulted NO GROWTH AFTER 4 DAYS Medications Current Medications Sodium Chloride 1,000 ml @ 2,040 mls/hr Q30M IV Last administered on t 18:30; Start 08/12/17 at 18:21; Stop 08/12/17 at 19:21; Status DC Levofloxacin/ Dextrose (Levaquin Per Pharmacy) 1 each PRN DAILY PRN MC SEE COMMENTS; Start 08/12/17 at 18:30; Stop 08/14/17 at 08:56; Status DC Calcium Gluconate (Calcium Gluconate) 2,000 mg 1X ONCE IVP Last administered on 08/12/17 19:12; Start 08/12/17 at 18:30; Stop 08/12/17 at 18:38; Status DC Docusate Sodium (Colace) 200 mg DAILY PO Last administered on 08/15/17 13:43 ; Start 08/13/17 at 09:00; Stop 08/16/17 at 14:07; Status DC Dutasteride (Avodart) 0.5 mg DAILY PO Last administered on 08/17/17 08:24; Start 08/13/17 at 09:00 Lamotrigine (LaMICtal) 200 mg DAILY PO Last administered on 08/17/17 08:24; Start 08/13/17 at 09:00 Levothyroxine Sodium (Synthroid) 50 mcg DAILY PO Last administered on 08:24; Start 08/13/17 at 09:00 Vitamin D (Vitamin D3) 2,000 unit DAILY PO Last administered on 08/15/17 13: 43; Start 08/13/17 at 09:00; Stop 08/16/17 at 14:07; Status DC Calcium/Vitamin D (Oscal D 250mg/ 125uts) 1 tab [id number] PO Last administered on 08/15/17 13:43; Start 08/13/17 at 08:00; Stop 08/16/17 at 14: 07; Status DC Albuterol/ Ipratropium (Duoneb) 3 ml RTQID NEB ; Start 08/12/17 at 20:00; Status Cancel Guaifenesin (Robitussin Dm) 10 ml PRN Q6HRS PRN PO COUGH; Start 08/12/17 at 18: 45 Levofloxacin/ Dextrose 150 ml @ As Directed STK-MED ONCE IV ; Start 08/12/17 at 18:32; Stop 08/12/17 at 18:33; Status DC Levofloxacin/ Dextrose 150 ml @ 100 mls/hr ONCE ONCE IV Last administered on 08/12/17 19:29; Start 08/12/17 at 18:45; Stop 08/12/17 at 20:14; Status DC Enoxaparin Sodium (Lovenox 40mg Syringe) 40 mg Q24H SQ Last administered on 19:46; Start 08/12/17 at 19:00; Stop 08/15/17 at 12:39; Status DC Albuterol/ Ipratropium (Duoneb) 3 ml RTQID NEB Last administered on 08/17/17 11:08; Start 08/12/17 at 20:00 Benzonatate (Tessalon Perle) 100 mg [id number] PO Last administered on 08/16/17 08:54; Start 08/12/17 at 21:00; Stop 08/16/17 at 14:07; Status DC Levofloxacin/ Dextrose 50 ml @ 50 mls/hr Q24H IV ; Start 08/13/17 at 19:30; Stop 08/13/17 at 19:30; Status DC Sodium Chloride 1,000 ml @ 100 mls/hr Q10H IV Last administered on 08/13/17 07:44; Start 08/12/17 at 19:41; Stop 08/13/17 at 19:40; Status DC Norepinephrine Bitartrate 250 ml @ 0 mls/hr CONT PRN IV SEE I/O RECORD Last administered on 08/14/17 19:46; Start 08/12/17 at 21:00 Vancomycin HCl 250 ml @ 250 mls/hr 1X ONCE IV Last administered on 08/12/17 21:00; Start 08/12/17 at 21:00; Stop 08/12/17 at 21:19; Status DC Vancomycin HCl 1.75 gm/Dextrose 500 ml @ 250 mls/hr 1X ONCE IV Last administered on 08/12/17 21:18; Start 08/12/17 at 22:00; Stop 08/12/17 at 23:59 ; Status DC Vancomycin HCl (Vanco Per Pharmacy) 1 each PRN DAILY PRN MC SEE COMMENTS Last administered on 08/14/17 23:02; Start 08/12/17 at 21:30; Stop 08/15/17 at 08: 44; Status DC Piperacillin Sod/ Tazobactam Sod 3.375 gm/Dextrose 50 ml @ 100 mls/hr Q6HRS IV ; Start 08/13/17 at 08:30; Status Cancel Vancomycin HCl (Vanco Per Pharmacy) 1 each PRN DAILY PRN MC SEE COMMENTS; Start 08/13/17 at 08:15; Stop 08/13/17 at 08:19; Status DC Vancomycin HCl 1 gm/Dextrose 250 ml @ 250 mls/hr Q24H IV Last administered on 08/14/17 21:21; Start 08/13/17 at 21:00; Stop 08/15/17 at 08:43; Status DC Vancomycin HCl 1 each 1X ONCE MC ; Start 08/14/17 at 20:30; Stop 08/14/17 at 20 :31; Status DC Piperacillin Sod/ Tazobactam Sod (Zosyn) 3.375 gm Q6HRS IVP Last administered on 08/15/17 05:28; Start 08/13/17 at 08:45; Stop 08/15/17 at 08:46; Status DC Levofloxacin/ Dextrose 150 ml @ 100 mls/hr Q48H IV Last administered on 17:13; Start 08/14/17 at 19:00 Diphenhydramine HCl (Benadryl) 25 mg PRN Q6HRS PRN PO ITCHING Last administered on 08/13/17 19:57; Start 08/13/17 at 19:45 Zolpidem Tartrate (Ambien) 5 mg 1X ONCE PO ; Start 08/13/17 at 21:30; Stop 08/13/17 at 21:31; Status DC Sodium Chloride 1,000 ml @ 100 mls/hr Q10H IV Last administered on 08/14/17 18:15; Start 08/14/17 at 08:00; Stop 08/15/17 at 19:03; Status DC Lactobacillus Rhamnosus (Culturelle) 1 cap BID PO Last administered on 08:24; Start 08/14/17 at 21:00 Sodium Chloride 500 ml @ 500 mls/hr 1X ONCE IV Last administered on 19:48; Start 08/14/17 at 19:00; Stop 08/14/17 at 19:59; Status DC Lorazepam (Ativan) 1 mg PRN Q2HRS PRN PO ANXIETY / AGITATION Last administered on 08/15/17 13:42; Start 08/14/17 at 19:30 Furosemide (Lasix) 20 mg 1X ONCE IVP Last administered on 08/15/17 08:30; Start 08/15/17 at 08:30; Stop 08/15/17 at 08:31; Status DC Enoxaparin Sodium (Lovenox 30mg Syringe) 30 mg Q24H SQ Last administered on 17:13; Start 08/15/17 at 17:00 Furosemide (Lasix) 40 mg DAILY IVP Last administered on 08/17/17 08:23; Start 08/15/17 at 15:00; Stop 08/18/17 at 09:00 Haloperidol Lactate (Haldol) 5 mg PRN Q6HRS PRN IVP AGITATION Last administered on 08/16/17 00:08; Start 08/15/17 at 18:15 Diphenhydramine HCl (Benadryl) 25 mg PRN Q6HRS PRN IVP ITCHING Last administered on 08/16/17 13:51; Start 08/15/17 at 19:15 Dextrose 500 ml @ 500 mls/hr 1X ONCE IV Last administered on 08/16/17 11:00 ; Start 08/16/17 at 11:00; Stop 08/16/17 at 11:59; Status DC Potassium Chloride 40 meq/ Dextrose 1,020 ml @ 75 mls/hr 1X ONCE IV Last administered on 08/16/17 12:51; Start 08/16/17 at 11:00; Stop 08/17/17 at 00 :35; Status DC Docusate Sodium (Colace Solution) 100 mg DAILY PO Last administered on 08:23; Start 08/17/17 at 09:00 Piperacillin Sod/ Tazobactam Sod 2.25 gm/Dextrose 50 ml @ 100 mls/hr Q6HRS IV ; Start 08/16/17 at 18:00; Status UNV Piperacillin Sod/ Tazobactam Sod (Zosyn) 2.25 gm Q6HRS IVP Last administered on 08/17/17 11:24; Start 08/16/17 at 18:00 Morphine Sulfate 2 mg PRN Q2HR PRN IV PAIN; Start 08/16/17 at 17:45 Morphine Sulfate 4 mg PRN Q2HR PRN IV PAIN Last administered on 08/16/17 17: 58; Start 08/16/17 at 17:45 Morphine Sulfate 6 mg PRN Q2HR PRN IV PAIN; Start 08/16/17 at 17:45 Potassium Chloride (KCl Oral Soln) 40 meq 1X ONCE PEG Last administered on t 06:26; Start 08/17/17 at 07:00; Stop 08/17/17 at 07:01; Status DC Active Scripts Active Reported Avodart (Dutasteride) 0.5 Mg Capsule 1 Cap PO DAILY Docusate Sodium 100 Mg Capsule 2 Cap PO DAILY Caltrate 600 + D Tablet (Calcium Carbonate/Vitamin D3) 1 Each Tablet 1 Each PO Vitamin D (Cholecalciferol (Vitamin D3)) 2,000 Unit Capsule 1 Cap PO DAILY Carvedilol 6.25 Mg Tablet 0.5 Tab PO DAILY Lamictal (Lamotrigine) 100 Mg Tablet 2 Tab PO DAILY Levothyroxine Sodium 50 Mcg Tablet 1 Tab PO DAILY Vitals/I & O Vital Sign - Last 24 Hours 08/16/17 08/16/17 08/16/17 08/16/17 15:00 15:16 16:00 16:00 Temp 98.8 98.8 Pulse 75 78 Resp 40 36 B/P (MAP) 108/71 (83) 124/64 (84) Pulse Ox 89 85 O2 Delivery NonRebreather Mask NonRebreather Mask NonRebreather Mask Non- Rebreather O2 Flow Rate 15.0 15.0 15.0 15.0 08/16/17 08/16/17 08/16/17 08/16/17 17:00 17:55 17:58 18:00 Pulse 76 82 Resp 32 32 30 B/P (MAP) 118/71 (87) 126/64 (84) Pulse Ox 87 100 84 95 O2 Delivery NonRebreather Mask BiPAP/CPAP BiPAP/CPAP O2 Flow Rate 15.0 15.0 08/16/17 08/16/17 08/16/17 08/16/17 18:30 19:00 20:00 20:00 Temp 99.6 99.6 Pulse 83 69 Resp 30 31 26 B/P (MAP) 100/58 (72) 84/49 (61) Pulse Ox 95 91 94 O2 Delivery BiPAP/CPAP BiPAP/CPAP BiPAP/CPAP Bi-pap 08/16/17 08/16/17 08/16/17 08/16/17 20:05 21:00 22:00 23:00 Temp 97.9 97.9 Pulse 68 95 92 Resp 22 20 20 B/P (MAP) 84/43 (57) 99/58 (72) 95/55 (68) Pulse Ox 95 95 96 97 O2 Delivery BiPAP/CPAP BiPAP/CPAP BiPAP/CPAP BiPAP/CPAP 08/16/17 08/16/17 08/17/17 08/17/17 23:30 23:34 00:00 01:00 Pulse 98 89 Resp 21 19 B/P (MAP) 92/51 (65) 93/48 (63) Pulse Ox 98 98 98 O2 Delivery Bi-pap BiPAP/CPAP BiPAP/CPAP BiPAP/CPAP 08/17/17 08/17/17 08/17/17 08/17/17 01:38 02:00 03:00 03:30 Temp 97.9 97.9 Pulse 96 83 Resp 21 20 B/P (MAP) 100/49 (66) 100/52 (68) Pulse Ox 98 96 97 O2 Delivery BiPAP/CPAP BiPAP/CPAP BiPAP/CPAP Bi-pap 08/17/17 08/17/17 08/17/17 08/17/17 03:31 04:00 05:00 05:41 Pulse 81 97 Resp 21 B/P (MAP) 99/52 (68) 120/61 (80) Pulse Ox 98 96 94 98 O2 Delivery BiPAP/CPAP BiPAP/CPAP BiPAP/CPAP BiPAP/CPAP 08/17/17 08/17/17 08/17/17 08/17/17 06:00 07:00 07:39 08:00 Temp 98.3 98.3 Pulse 89 93 96 Resp 21 25 B/P (MAP) 100/53 (69) 103/56 (72) 115/60 (78) Pulse Ox 93 93 91 94 O2 Delivery BiPAP/CPAP BiPAP/CPAP BiPAP/CPAP BiPAP/CPAP 08/17/17 08/17/17 08/17/17 08/17/17 08:06 09:00 09:03 10:00 Pulse 95 90 Resp 27 25 B/P (MAP) 110/55 (73) 102/53 (69) Pulse Ox 94 94 94 O2 Delivery Bi-pap BiPAP/CPAP BiPAP/CPAP BiPAP/CPAP 11/12/17 08/17/17 08/17/17 08/17/17 11:00 11:08 12:00 12:00 Temp 99.8 99.8 Pulse 93 67 Resp 28 29 B/P (MAP) 104/54 (71) 87/59 (68) Pulse Ox 94 95 96 O2 Delivery BiPAP/CPAP BiPAP/CPAP Bi-pap BiPAP/CPAP 08/17/17 08/17/17 08/17/17 13:00 13:12 14:00 Pulse 90 92 Resp 26 30 B/P (MAP) 94/54 (67) 101/57 (72) Pulse Ox 98 97 96 O2 Delivery BiPAP/CPAP BiPAP/CPAP BiPAP/CPAP Intake and Output 08/17/17 08/17/17 08/18/17 15:00 23:00 07:00 Intake Total 100 ml Output Total 950 ml Balance -850 ml KIM MOSQUERA MD Aug 17, 2017 14:31
--- NOTE | 2017-08-17 15:25 | PDOC ---
PULMONARY PROGRESS NOTES Subjective BETTER TODAY ON BIPAP Vitals Vital Signs Date Time Temp Pulse Resp B/P (MAP) Pulse Ox O2 Delivery O2 Flow Rate FiO2 08/17/17 15:00 99.4 78 32 106/55 (72) 97 BiPAP/CPAP 99.4 08/16/17 17:58 15.0 Lungs: Crackles Cardiovascular: S1, S2 Abdomen: Soft, Non-tender Neuro Exam: Alert Extremities: No Edema Skin: Warm Labs Laboratory Tests Test 08/16/17 03:30 08/17/17 04:30 08/17/17 05:10 08/17/17 10:20 White Blood Count 14.6 x10^3/uL (4.0-11.0) 13.7 x10^3/uL (4.0-11.0) Red Blood Count 4.33 x10^6/uL (4.30-5.70) 4.21 x10^6/uL (4.30-5.70) Hemoglobin 13.6 g/dL (13.0-17.5) 13.0 g/dL (13.0-17.5) Hematocrit 39.5 % (39.0-53.0) 38.7 % (39.0-53.0) Mean Corpuscular Volume 91 fL (79-100) 92 fL (79-100) Mean Corpuscular Hemoglobin 31 pg (25-35) 31 pg (25-35) Mean Corpuscular Hemoglobin Concent 34 g/dL (31-37) 34 g/dL (31-37) Red Cell Distribution Width 14.2 % (11.5-14.5) 14.4 % (11.5-14.5) Platelet Count 150 x10^3/uL (140-400) 138 x10^3/uL (140-400) Neutrophils (%) (Auto) 84 % (31-73) 81 % (31-73) Lymphocytes (%) (Auto) 10 % (24-48) 12 % (24-48) Monocytes (%) (Auto) 6 % (0-9) 7 % (0-9) Eosinophils (%) (Auto) 0 % (0-3) 0 % (0-3) Basophils (%) (Auto) 0 % (0-3) 0 % (0-3) Neutrophils # (Auto) 12.3 x10^3uL (1.8-7.7) 11.1 x10^3uL (1.8-7.7) Lymphocytes # (Auto) 1.4 x10^3/uL (1.0-4.8) 1.7 x10^3/uL (1.0-4.8) Monocytes # (Auto) 0.9 x10^3/uL (0.0-1.1) 0.9 x10^3/uL (0.0-1.1) Eosinophils # (Auto) 0.0 x10^3/uL (0.0-0.7) 0.0 x10^3/uL (0.0-0.7) Basophils # (Auto) 0.0 x10^3/uL (0.0-0.2) 0.1 x10^3/uL (0.0-0.2) Sodium Level 150 mmol/L (136-145) 145 mmol/L (136-145) Potassium Level 3.2 mmol/L (3.5-5.1) 2.9 mmol/L (3.5-5.1) 3.0 mmol/L (3.5-5.1) Chloride Level 111 mmol/L (98-107) 110 mmol/L (98-107) Carbon Dioxide Level 23 mmol/L (21-32) 26 mmol/L (21-32) Anion Gap 16 (6-14) 9 (6-14) Blood Urea Nitrogen 34 mg/dL (8-26) 42 mg/dL (8-26) Creatinine 1.6 mg/dL (0.7-1.3) 1.5 mg/dL (0.7-1.3) Estimated GFR (Cockcroft-Gault) 41.0 44.2 Glucose Level 92 mg/dL (70-99) 139 mg/dL (70-99) Calcium Level 7.5 mg/dL (8.5-10.1) 7.3 mg/dL (8.5-10.1) BUN/Creatinine Ratio 28 (6-20) Total Bilirubin 1.1 mg/dL (0.2-1.0) Aspartate Amino Transf (AST/SGOT) 48 U/L (15-37) Alanine Aminotransferase (ALT/SGPT) 39 U/L (16-63) Alkaline Phosphatase 59 U/L (46-116) Total Protein 5.9 g/dL (6.4-8.2) Albumin 1.9 g/dL (3.4-5.0) Albumin/Globulin Ratio 0.5 (1.0-1.7) Magnesium Level 2.2 mg/dL (1.8-2.4) Laboratory Tests Test 08/17/17 04:30 08/17/17 05:10 08/17/17 10:20 Sodium Level 145 mmol/L (136-145) Potassium Level 2.9 mmol/L (3.5-5.1) 3.0 mmol/L (3.5-5.1) Chloride Level 110 mmol/L (98-107) Carbon Dioxide Level 26 mmol/L (21-32) Anion Gap 9 (6-14) Blood Urea Nitrogen 42 mg/dL (8-26) Creatinine 1.5 mg/dL (0.7-1.3) Estimated GFR (Cockcroft-Gault) 44.2 BUN/Creatinine Ratio 28 (6-20) Glucose Level 139 mg/dL (70-99) Calcium Level 7.3 mg/dL (8.5-10.1) Total Bilirubin 1.1 mg/dL (0.2-1.0) Aspartate Amino Transf (AST/SGOT) 48 U/L (15-37) Alanine Aminotransferase (ALT/SGPT) 39 U/L (16-63) Alkaline Phosphatase 59 U/L (46-116) Total Protein 5.9 g/dL (6.4-8.2) Albumin 1.9 g/dL (3.4-5.0) Albumin/Globulin Ratio 0.5 (1.0-1.7) White Blood Count 13.7 x10^3/uL (4.0-11.0) Red Blood Count 4.21 x10^6/uL (4.30-5.70) Hemoglobin 13.0 g/dL (13.0-17.5) Hematocrit 38.7 % (39.0-53.0) Mean Corpuscular Volume 92 fL (79-100) Mean Corpuscular Hemoglobin 31 pg (25-35) Mean Corpuscular Hemoglobin Concent 34 g/dL (31-37) Red Cell Distribution Width 14.4 % (11.5-14.5) Platelet Count 138 x10^3/uL (140-400) Neutrophils (%) (Auto) 81 % (31-73) Lymphocytes (%) (Auto) 12 % (24-48) Monocytes (%) (Auto) 7 % (0-9) Eosinophils (%) (Auto) 0 % (0-3) Basophils (%) (Auto) 0 % (0-3) Neutrophils # (Auto) 11.1 x10^3uL (1.8-7.7) Lymphocytes # (Auto) 1.7 x10^3/uL (1.0-4.8) Monocytes # (Auto) 0.9 x10^3/uL (0.0-1.1) Eosinophils # (Auto) 0.0 x10^3/uL (0.0-0.7) Basophils # (Auto) 0.1 x10^3/uL (0.0-0.2) Magnesium Level 2.2 mg/dL (1.8-2.4) Medications Active Scripts Medications Dose Route/Sig Max Daily Dose Days Date Category Avodart (Dutasteride) 0.5 Mg Capsule 1 Cap PO DAILY 08/12/17 Reported Docusate Sodium 100 Mg Capsule 2 Cap PO DAILY 08/12/17 Reported Caltrate 600 + D Tablet (Calcium Carbonate/Vitamin D3) 1 Each Tablet 1 Each PO 08/12/17 Reported Vitamin D (Cholecalciferol (Vitamin D3)) 2,000 Unit Capsule 1 Cap PO DAILY 08/12/17 Reported Carvedilol 6.25 Mg Tablet 0.5 Tab PO DAILY 08/12/17 Reported Lamictal (Lamotrigine) 100 Mg Tablet 2 Tab PO DAILY 08/12/17 Reported Levothyroxine Sodium 50 Mcg Tablet 1 Tab PO DAILY 08/12/17 Reported Comments AGATHA INFILTRATES ARDS/EDEMA Impression . 1. Acute resp failure POA/Abnormal x-ray compatible with pneumonia, suspect gram negative.ARDS 2. Septic shock, improved with IV fluids and norepinephrine, off pressors 3. Mild protein malnutrition, present upon admission. 4. Tobacco abuse, in remission. 5. Hypothyroidism. 6. Dementia. 7. Acute toxic encephalopathy, present upon admission. 8. Hypernatremia 9. Hypokalemia . Plan . SEE ORDERS NEEDS LASIX FOR NOW SPOKE WITH DR MOSQUERA SPOKE WITH DAUGHTERS AT BEDSIDE, PT NOW WITH TUBE FEEDING RUNNING, LESS DELIRIOUS IV LASIX FOR 3 DAYS ANITBX PT IS DNR/DNI LONNIE MEREDITH MD Aug 17, 2017 15:25
--- NOTE | 2017-08-17 15:30 | PDOC ---
PROGRESS NOTES Chief Complaint Chief Complaint 1. CAP 2. Severe sepsis with HYPOTENSION, infectious 3. Dementia 4. 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 HYPOTENSION 7. HYPOthyroidism - on synthroid 8. Elevated lactate\ 9. Hypoxic respi failure sec to CAP History of Present Illness History of Present Illness Pt seen at bedside in ICU. In mild distress today, now breathing with BIPAP at 16/4 with rate of 20 and 70% O2. Per RN, will try to go without BIPAP for a short time this afternoon to see how he holds up. DW daughter his prognosis and she expresses understanding and desire to consult palliative care re: their long-term care goals. Pt has been hypoK+ today, was at 2.9 this AM. Received 40 mEq K+ whic hraised level to 3.0. Will order another 40mEq soln and continue monitoring. Vitals Vitals Vital Signs Date Time Temp Pulse Resp B/P (MAP) Pulse Ox O2 Delivery O2 Flow Rate FiO2 08/17/17 15:00 99.4 78 32 106/55 (72) 97 BiPAP/CPAP 99.4 08/16/17 17:58 15.0 Physical Exam General: moderate distress, Other (SOMNULENT) Heart: Regular rate, Normal S1, Normal S2, No murmurs, Gallops Lungs: Crackles Abdomen: Normal bowel sounds, Soft, No tenderness, No hepatosplenomegaly, No masses Extremities: No clubbing, No cyanosis, No edema, Normal pulses, No tenderness/ swelling Skin: No rashes, No breakdown, No significant lesion Labs LABS Laboratory Tests Test 08/17/17 04:30 08/17/17 05:10 08/17/17 10:20 Sodium Level 145 mmol/L (136-145) Potassium Level 2.9 mmol/L (3.5-5.1) 3.0 mmol/L (3.5-5.1) Chloride Level 110 mmol/L (98-107) Carbon Dioxide Level 26 mmol/L (21-32) Anion Gap 9 (6-14) Blood Urea Nitrogen 42 mg/dL (8-26) Creatinine 1.5 mg/dL (0.7-1.3) Estimated GFR (Cockcroft-Gault) 44.2 BUN/Creatinine Ratio 28 (6-20) Glucose Level 139 mg/dL (70-99) Calcium Level 7.3 mg/dL (8.5-10.1) Total Bilirubin 1.1 mg/dL (0.2-1.0) Aspartate Amino Transf (AST/SGOT) 48 U/L (15-37) Alanine Aminotransferase (ALT/SGPT) 39 U/L (16-63) Alkaline Phosphatase 59 U/L (46-116) Total Protein 5.9 g/dL (6.4-8.2) Albumin 1.9 g/dL (3.4-5.0) Albumin/Globulin Ratio 0.5 (1.0-1.7) White Blood Count 13.7 x10^3/uL (4.0-11.0) Red Blood Count 4.21 x10^6/uL (4.30-5.70) Hemoglobin 13.0 g/dL (13.0-17.5) Hematocrit 38.7 % (39.0-53.0) Mean Corpuscular Volume 92 fL (79-100) Mean Corpuscular Hemoglobin 31 pg (25-35) Mean Corpuscular Hemoglobin Concent 34 g/dL (31-37) Red Cell Distribution Width 14.4 % (11.5-14.5) Platelet Count 138 x10^3/uL (140-400) Neutrophils (%) (Auto) 81 % (31-73) Lymphocytes (%) (Auto) 12 % (24-48) Monocytes (%) (Auto) 7 % (0-9) Eosinophils (%) (Auto) 0 % (0-3) Basophils (%) (Auto) 0 % (0-3) Neutrophils # (Auto) 11.1 x10^3uL (1.8-7.7) Lymphocytes # (Auto) 1.7 x10^3/uL (1.0-4.8) Monocytes # (Auto) 0.9 x10^3/uL (0.0-1.1) Eosinophils # (Auto) 0.0 x10^3/uL (0.0-0.7) Basophils # (Auto) 0.1 x10^3/uL (0.0-0.2) Magnesium Level 2.2 mg/dL (1.8-2.4) Review of Systems Review of Systems Pt AOCx0, breathing with BIPAP assistance. HR regularly irregular. Lung crackles present b/l in all marshall. Assessment and Plan Assessmemt and Plan Problems Medical Problems: (1) Community acquired pneumonia Status: Acute (2) Dementia Status: Acute (3) Lactic acidosis Status: Acute (4) Severe sepsis Status: Acute 1. CAP 2. Severe sepsis with HYPOTENSION, infectious 3. Dementia 4. 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 HYPOTENSION 7. HYPOthyroidism - on synthroid 8. Elevated lactate\ 9. Hypoxic respi failure sec to CAP PLAN: Consult palliative care Oredered 40 K+ suspension Continue ICU monitoring COntinue BIPAP prn Continue ICU monitoring Prognosis poor Problems: Comment Review of Relevant I have reviewed the following items emmanuel (where applicable) has been applied. Labs Laboratory Tests Test 08/16/17 03:30 08/17/17 04:30 08/17/17 05:10 08/17/17 10:20 White Blood Count 14.6 x10^3/uL (4.0-11.0) 13.7 x10^3/uL (4.0-11.0) Red Blood Count 4.33 x10^6/uL (4.30-5.70) 4.21 x10^6/uL (4.30-5.70) Hemoglobin 13.6 g/dL (13.0-17.5) 13.0 g/dL (13.0-17.5) Hematocrit 39.5 % (39.0-53.0) 38.7 % (39.0-53.0) Mean Corpuscular Volume 91 fL (79-100) 92 fL (79-100) Mean Corpuscular Hemoglobin 31 pg (25-35) 31 pg (25-35) Mean Corpuscular Hemoglobin Concent 34 g/dL (31-37) 34 g/dL (31-37) Red Cell Distribution Width 14.2 % (11.5-14.5) 14.4 % (11.5-14.5) Platelet Count 150 x10^3/uL (140-400) 138 x10^3/uL (140-400) Neutrophils (%) (Auto) 84 % (31-73) 81 % (31-73) Lymphocytes (%) (Auto) 10 % (24-48) 12 % (24-48) Monocytes (%) (Auto) 6 % (0-9) 7 % (0-9) Eosinophils (%) (Auto) 0 % (0-3) 0 % (0-3) Basophils (%) (Auto) 0 % (0-3) 0 % (0-3) Neutrophils # (Auto) 12.3 x10^3uL (1.8-7.7) 11.1 x10^3uL (1.8-7.7) Lymphocytes # (Auto) 1.4 x10^3/uL (1.0-4.8) 1.7 x10^3/uL (1.0-4.8) Monocytes # (Auto) 0.9 x10^3/uL (0.0-1.1) 0.9 x10^3/uL (0.0-1.1) Eosinophils # (Auto) 0.0 x10^3/uL (0.0-0.7) 0.0 x10^3/uL (0.0-0.7) Basophils # (Auto) 0.0 x10^3/uL (0.0-0.2) 0.1 x10^3/uL (0.0-0.2) Sodium Level 150 mmol/L (136-145) 145 mmol/L (136-145) Potassium Level 3.2 mmol/L (3.5-5.1) 2.9 mmol/L (3.5-5.1) 3.0 mmol/L (3.5-5.1) Chloride Level 111 mmol/L (98-107) 110 mmol/L (98-107) Carbon Dioxide Level 23 mmol/L (21-32) 26 mmol/L (21-32) Anion Gap 16 (6-14) 9 (6-14) Blood Urea Nitrogen 34 mg/dL (8-26) 42 mg/dL (8-26) Creatinine 1.6 mg/dL (0.7-1.3) 1.5 mg/dL (0.7-1.3) Estimated GFR (Cockcroft-Gault) 41.0 44.2 Glucose Level 92 mg/dL (70-99) 139 mg/dL (70-99) Calcium Level 7.5 mg/dL (8.5-10.1) 7.3 mg/dL (8.5-10.1) BUN/Creatinine Ratio 28 (6-20) Total Bilirubin 1.1 mg/dL (0.2-1.0) Aspartate Amino Transf (AST/SGOT) 48 U/L (15-37) Alanine Aminotransferase (ALT/SGPT) 39 U/L (16-63) Alkaline Phosphatase 59 U/L (46-116) Total Protein 5.9 g/dL (6.4-8.2) Albumin 1.9 g/dL (3.4-5.0) Albumin/Globulin Ratio 0.5 (1.0-1.7) Magnesium Level 2.2 mg/dL (1.8-2.4) Laboratory Tests Test 08/17/17 04:30 08/17/17 05:10 08/17/17 10:20 Sodium Level 145 mmol/L (136-145) Potassium Level 2.9 mmol/L (3.5-5.1) 3.0 mmol/L (3.5-5.1) Chloride Level 110 mmol/L (98-107) Carbon Dioxide Level 26 mmol/L (21-32) Anion Gap 9 (6-14) Blood Urea Nitrogen 42 mg/dL (8-26) Creatinine 1.5 mg/dL (0.7-1.3) Estimated GFR (Cockcroft-Gault) 44.2 BUN/Creatinine Ratio 28 (6-20) Glucose Level 139 mg/dL (70-99) Calcium Level 7.3 mg/dL (8.5-10.1) Total Bilirubin 1.1 mg/dL (0.2-1.0) Aspartate Amino Transf (AST/SGOT) 48 U/L (15-37) Alanine Aminotransferase (ALT/SGPT) 39 U/L (16-63) Alkaline Phosphatase 59 U/L (46-116) Total Protein 5.9 g/dL (6.4-8.2) Albumin 1.9 g/dL (3.4-5.0) Albumin/Globulin Ratio 0.5 (1.0-1.7) White Blood Count 13.7 x10^3/uL (4.0-11.0) Red Blood Count 4.21 x10^6/uL (4.30-5.70) Hemoglobin 13.0 g/dL (13.0-17.5) Hematocrit 38.7 % (39.0-53.0) Mean Corpuscular Volume 92 fL (79-100) Mean Corpuscular Hemoglobin 31 pg (25-35) Mean Corpuscular Hemoglobin Concent 34 g/dL (31-37) Red Cell Distribution Width 14.4 % (11.5-14.5) Platelet Count 138 x10^3/uL (140-400) Neutrophils (%) (Auto) 81 % (31-73) Lymphocytes (%) (Auto) 12 % (24-48) Monocytes (%) (Auto) 7 % (0-9) Eosinophils (%) (Auto) 0 % (0-3) Basophils (%) (Auto) 0 % (0-3) Neutrophils # (Auto) 11.1 x10^3uL (1.8-7.7) Lymphocytes # (Auto) 1.7 x10^3/uL (1.0-4.8) Monocytes # (Auto) 0.9 x10^3/uL (0.0-1.1) Eosinophils # (Auto) 0.0 x10^3/uL (0.0-0.7) Basophils # (Auto) 0.1 x10^3/uL (0.0-0.2) Magnesium Level 2.2 mg/dL (1.8-2.4) Microbiology 08/12/17 Blood Culture - Preliminary, Resulted NO GROWTH AFTER 4 DAYS Medications Current Medications Sodium Chloride 1,000 ml @ 2,040 mls/hr Q30M IV Last administered on 18:30; Start 08/12/17 at 18:21; Stop 08/12/17 at 19:21; Status DC Levofloxacin/ Dextrose (Levaquin Per Pharmacy) 1 each PRN DAILY PRN MC SEE COMMENTS; Start 08/12/17 at 18:30; Stop 08/14/17 at 08:56; Status DC Calcium Gluconate (Calcium Gluconate) 2,000 mg 1X ONCE IVP Last administered on 08/12/17 19:12; Start 08/12/17 at 18:30; Stop 08/12/17 at 18:38; Status DC Docusate Sodium (Colace) 200 mg DAILY PO Last administered on 08/15/17 13:43 ; Start 08/13/17 at 09:00; Stop 08/16/17 at 14:07; Status DC Dutasteride (Avodart) 0.5 mg DAILY PO Last administered on 08/17/17 08:24; Start 08/13/17 at 09:00 Lamotrigine (LaMICtal) 200 mg DAILY PO Last administered on 08/17/17 08:24; Start 08/13/17 at 09:00 Levothyroxine Sodium (Synthroid) 50 mcg DAILY PO Last administered on 08:24; Start 08/13/17 at 09:00 Vitamin D (Vitamin D3) 2,000 unit DAILY PO Last administered on 08/15/17 13: 43; Start 08/13/17 at 09:00; Stop 08/16/17 at 14:07; Status DC Calcium/Vitamin D (Oscal D 250mg/ 125uts) 1 tab [id number] PO Last administered on 08/15/17 13:43; Start 08/13/17 at 08:00; Stop 08/16/17 at 14: 07; Status DC Albuterol/ Ipratropium (Duoneb) 3 ml RTQID NEB ; Start 08/12/17 at 20:00; Status Cancel Guaifenesin (Robitussin Dm) 10 ml PRN Q6HRS PRN PO COUGH; Start 08/12/17 at 18: 45 Levofloxacin/ Dextrose 150 ml @ As Directed STK-MED ONCE IV ; Start 08/12/17 at 18:32; Stop 08/12/17 at 18:33; Status DC Levofloxacin/ Dextrose 150 ml @ 100 mls/hr ONCE ONCE IV Last administered on 08/12/17 19:29; Start 08/12/17 at 18:45; Stop 08/12/17 at 20:14; Status DC Enoxaparin Sodium (Lovenox 40mg Syringe) 40 mg Q24H SQ Last administered on 19:46; Start 08/12/17 at 19:00; Stop 08/15/17 at 12:39; Status DC Albuterol/ Ipratropium (Duoneb) 3 ml RTQID NEB Last administered on 08/17/17 14:55; Start 08/12/17 at 20:00 Benzonatate (Tessalon Perle) 100 mg [id number] PO Last administered on 08/16/17 08:54; Start 08/12/17 at 21:00; Stop 08/16/17 at 14:07; Status DC Levofloxacin/ Dextrose 50 ml @ 50 mls/hr Q24H IV ; Start 08/13/17 at 19:30; Stop 08/13/17 at 19:30; Status DC Sodium Chloride 1,000 ml @ 100 mls/hr Q10H IV Last administered on 08/13/17 07:44; Start 08/12/17 at 19:41; Stop 08/13/17 at 19:40; Status DC Norepinephrine Bitartrate 250 ml @ 0 mls/hr CONT PRN IV SEE I/O RECORD Last administered on 08/14/17 19:46; Start 08/12/17 at 21:00 Vancomycin HCl 250 ml @ 250 mls/hr 1X ONCE IV Last administered on 08/12/17 21:00; Start 08/12/17 at 21:00; Stop 08/12/17 at 21:19; Status DC Vancomycin HCl 1.75 gm/Dextrose 500 ml @ 250 mls/hr 1X ONCE IV Last administered on 08/12/17 21:18; Start 08/12/17 at 22:00; Stop 08/12/17 at 23:59 ; Status DC Vancomycin HCl (Vanco Per Pharmacy) 1 each PRN DAILY PRN MC SEE COMMENTS Last administered on 08/14/17 23:02; Start 08/12/17 at 21:30; Stop 08/15/17 at 08: 44; Status DC Piperacillin Sod/ Tazobactam Sod 3.375 gm/Dextrose 50 ml @ 100 mls/hr Q6HRS IV ; Start 08/13/17 at 08:30; Status Cancel Vancomycin HCl (Vanco Per Pharmacy) 1 each PRN DAILY PRN MC SEE COMMENTS; Start 08/13/17 at 08:15; Stop 08/13/17 at 08:19; Status DC Vancomycin HCl 1 gm/Dextrose 250 ml @ 250 mls/hr Q24H IV Last administered on 08/14/17 21:21; Start 08/13/17 at 21:00; Stop 08/15/17 at 08:43; Status DC Vancomycin HCl 1 each 1X ONCE MC ; Start 08/14/17 at 20:30; Stop 08/14/17 at 20 :31; Status DC Piperacillin Sod/ Tazobactam Sod (Zosyn) 3.375 gm Q6HRS IVP Last administered on 08/15/17 05:28; Start 08/13/17 at 08:45; Stop 08/15/17 at 08:46; Status DC Levofloxacin/ Dextrose 150 ml @ 100 mls/hr Q48H IV Last administered on 17:13; Start 08/14/17 at 19:00 Diphenhydramine HCl (Benadryl) 25 mg PRN Q6HRS PRN PO ITCHING Last administered on 08/13/17 19:57; Start 08/13/17 at 19:45 Zolpidem Tartrate (Ambien) 5 mg 1X ONCE PO ; Start 08/13/17 at 21:30; Stop 08/13/17 at 21:31; Status DC Sodium Chloride 1,000 ml @ 100 mls/hr Q10H IV Last administered on 08/14/17 18:15; Start 08/14/17 at 08:00; Stop 08/15/17 at 19:03; Status DC Lactobacillus Rhamnosus (Culturelle) 1 cap BID PO Last administered on 08:24; Start 08/14/17 at 21:00 Sodium Chloride 500 ml @ 500 mls/hr 1X ONCE IV Last administered on 19:48; Start 08/14/17 at 19:00; Stop 08/14/17 at 19:59; Status DC Lorazepam (Ativan) 1 mg PRN Q2HRS PRN PO ANXIETY / AGITATION Last administered on 08/15/17 13:42; Start 08/14/17 at 19:30 Furosemide (Lasix) 20 mg 1X ONCE IVP Last administered on 08/15/17 08:30; Start 08/15/17 at 08:30; Stop 08/15/17 at 08:31; Status DC Enoxaparin Sodium (Lovenox 30mg Syringe) 30 mg Q24H SQ Last administered on 17:13; Start 08/15/17 at 17:00 Furosemide (Lasix) 40 mg DAILY IVP Last administered on 08/17/17 08:23; Start 08/15/17 at 15:00; Stop 08/18/17 at 09:00 Haloperidol Lactate (Haldol) 5 mg PRN Q6HRS PRN IVP AGITATION Last administered on 08/16/17 00:08; Start 08/15/17 at 18:15 Diphenhydramine HCl (Benadryl) 25 mg PRN Q6HRS PRN IVP ITCHING Last administered on 08/16/17 13:51; Start 08/15/17 at 19:15 Dextrose 500 ml @ 500 mls/hr 1X ONCE IV Last administered on 08/16/17 11:00 ; Start 08/16/17 at 11:00; Stop 08/16/17 at 11:59; Status DC Potassium Chloride 40 meq/ Dextrose 1,020 ml @ 75 mls/hr 1X ONCE IV Last administered on 08/16/17 12:51; Start 08/16/17 at 11:00; Stop 08/17/17 at 00 :35; Status DC Docusate Sodium (Colace Solution) 100 mg DAILY PO Last administered on 08:23; Start 08/17/17 at 09:00 Piperacillin Sod/ Tazobactam Sod 2.25 gm/Dextrose 50 ml @ 100 mls/hr Q6HRS IV ; Start 08/16/17 at 18:00; Status UNV Piperacillin Sod/ Tazobactam Sod (Zosyn) 2.25 gm Q6HRS IVP Last administered on 08/17/17 11:24; Start 08/16/17 at 18:00 Morphine Sulfate 2 mg PRN Q2HR PRN IV PAIN; Start 08/16/17 at 17:45 Morphine Sulfate 4 mg PRN Q2HR PRN IV PAIN Last administered on 08/16/17 17: 58; Start 08/16/17 at 17:45 Morphine Sulfate 6 mg PRN Q2HR PRN IV PAIN; Start 08/16/17 at 17:45 Potassium Chloride (KCl Oral Soln) 40 meq 1X ONCE PEG Last administered on 06:26; Start 08/17/17 at 07:00; Stop 08/17/17 at 07:01; Status DC Active Scripts Active Reported Avodart (Dutasteride) 0.5 Mg Capsule 1 Cap PO DAILY Docusate Sodium 100 Mg Capsule 2 Cap PO DAILY Caltrate 600 + D Tablet (Calcium Carbonate/Vitamin D3) 1 Each Tablet 1 Each PO Vitamin D (Cholecalciferol (Vitamin D3)) 2,000 Unit Capsule 1 Cap PO DAILY Carvedilol 6.25 Mg Tablet 0.5 Tab PO DAILY Lamictal (Lamotrigine) 100 Mg Tablet 2 Tab PO DAILY Levothyroxine Sodium 50 Mcg Tablet 1 Tab PO DAILY Vitals/I & O Vital Sign - Last 24 Hours 08/16/17 08/16/17 08/16/17 08/16/17 16:00 16:00 17:00 17:55 Temp 98.8 98.8 Pulse 78 76 Resp 36 32 B/P (MAP) 124/64 (84) 118/71 (87) Pulse Ox 85 87 100 O2 Delivery NonRebreather Mask Non-Rebreather NonRebreather Mask BiPAP/CPAP O2 Flow Rate 15.0 15.0 15.0 08/16/17 08/16/17 08/16/17 08/16/17 17:58 18:00 18:30 19:00 Temp 99.6 99.6 Pulse 82 83 Resp 32 30 30 31 B/P (MAP) 126/64 (84) 100/58 (72) Pulse Ox 84 95 95 91 O2 Delivery BiPAP/CPAP BiPAP/CPAP BiPAP/CPAP O2 Flow Rate 15.0 08/16/17 08/16/17 08/16/17 08/16/17 20:00 20:00 20:05 21:00 Pulse 69 68 Resp 26 22 B/P (MAP) 84/49 (61) 84/43 (57) Pulse Ox 94 95 95 O2 Delivery BiPAP/CPAP Bi-pap BiPAP/CPAP BiPAP/CPAP 08/16/17 08/16/17 08/16/17 08/16/17 22:00 23:00 23:30 23:34 Temp 97.9 97.9 Pulse 95 92 Resp 20 20 B/P (MAP) 99/58 (72) 95/55 (68) Pulse Ox 96 97 98 O2 Delivery BiPAP/CPAP BiPAP/CPAP Bi-pap BiPAP/CPAP 08/17/17 08/17/17 08/17/17 08/17/17 00:00 01:00 01:38 02:00 Pulse 98 89 96 Resp 21 19 21 B/P (MAP) 92/51 (65) 93/48 (63) 100/49 (66) Pulse Ox 98 98 98 96 O2 Delivery BiPAP/CPAP BiPAP/CPAP BiPAP/CPAP BiPAP/CPAP 08/17/17 08/17/17 08/17/17 08/17/17 03:00 03:30 03:31 04:00 Temp 97.9 97.9 Pulse 83 81 Resp 20 21 B/P (MAP) 100/52 (68) 99/52 (68) Pulse Ox 97 98 96 O2 Delivery BiPAP/CPAP Bi-pap BiPAP/CPAP BiPAP/CPAP 08/17/17 08/17/17 08/17/17 08/17/17 05:00 05:41 06:00 07:00 Temp 98.3 98.3 Pulse 97 89 93 Resp 21 21 B/P (MAP) 120/61 (80) 100/53 (69) 103/56 (72) Pulse Ox 94 98 93 93 O2 Delivery BiPAP/CPAP BiPAP/CPAP BiPAP/CPAP BiPAP/CPAP 08/17/17 08/17/17 08/17/17 08/17/17 07:39 08:00 08:06 09:00 Pulse 96 95 Resp 25 27 B/P (MAP) 115/60 (78) 110/55 (73) Pulse Ox 91 94 94 O2 Delivery BiPAP/CPAP BiPAP/CPAP Bi-pap BiPAP/CPAP 08/17/17 08/17/17 08/17/17 08/17/17 09:03 10:00 11:00 11:08 Temp 99.8 99.8 Pulse 90 93 Resp 25 28 B/P (MAP) 102/53 (69) 104/54 (71) Pulse Ox 94 94 94 95 O2 Delivery BiPAP/CPAP BiPAP/CPAP BiPAP/CPAP BiPAP/CPAP 08/17/17 08/17/17 08/17/17 08/17/17 12:00 12:00 13:00 13:12 Pulse 67 90 Resp 29 26 B/P (MAP) 87/59 (68) 94/54 (67) Pulse Ox 96 98 97 O2 Delivery Bi-pap BiPAP/CPAP BiPAP/CPAP BiPAP/CPAP 08/17/17 08/17/17 08/17/17 14:00 14:56 15:00 Temp 99.4 99.4 Pulse 92 78 Resp 30 32 B/P (MAP) 101/57 (72) 106/55 (72) Pulse Ox 96 97 97 O2 Delivery BiPAP/CPAP BiPAP/CPAP BiPAP/CPAP Intake and Output 08/17/17 08/17/17 08/18/17 15:00 23:00 07:00 Intake Total 100 ml Output Total 1100 ml Balance -1000 ml DAINA WASHINGTON III DO Aug 17, 2017 15:30
[2017-08-17] MEDS: ENOXAPARIN 30 MG/0.3 ML SYRINGE. SQ SCH (16:30)
[2017-08-17] MEDS ORDERED: POTASSIUM CHLORIDE 20 MEQ/15 ML ORAL LIQUID. PEG SCH (21:00)
[2017-08-18] VITALS (24 sets, daily range): BP systolic 81–120; BP diastolic 45–60
[2017-08-18] MEDS: PIPERACILLIN/TAZO IV Push 2.25 GM VIAL. IVP SCH ×4 (00:22→17:39)
--- NOTE | 2017-08-18 07:43 | RAD ---
Portable chest, 08/18/2017: History: Follow-up pneumonia Comparison is made to yesterday's study. A left-sided transvenous pacing device with 3 leads is again noted. A Dobbhoff tube extends into the stomach although its distal tip is directed superiorly near the level of the GE junction. The position of its tip is unchanged since yesterday's exam. The tube does currently demonstrate a small loop in the lower cervical esophagus. The heart size is unchanged. There are predominantly interstitial type infiltrates in both lungs obscuring the underlying pulmonary vascularity. These are probably unchanged when allowing for the better depth of inspiration on the current exam. No significant pleural fluid is seen. No new abnormality is detected. IMPRESSION: 1. Moderate ongoing bilateral interstitial pulmonary opacities. 2. Suboptimal positioning of the Dobbhoff tube as described above.
--- NOTE | 2017-08-18 08:15 | PDOC ---
Infectious Disease Note Subjective Subjective On BiPAP - Wants it off Tube feedings via Dobbhoff ROS ROS Difficult to understand with Bipap Vital Sign Vital Signs Vital Signs Date Time Temp Pulse Resp B/P (MAP) Pulse Ox O2 Delivery O2 Flow Rate FiO2 08/18/17 06:00 79 27 119/55 (76) 95 BiPAP/CPAP 08/18/17 04:00 99.8 99.8 08/17/17 19:00 15.0 Physical Exam PHYSICAL EXAM GENERAL: On BiPAP, Looks ok LUNGS: Diminished aeration, nonlabored HEART: S1S2, pacemaker ABD: Soft, NT, BS active : Garcia EXT: No edema, no cyanosis BROACH SETTER: Very alert and moves his extremities SKIN: No rash IV: ok Labs Lab Laboratory Tests Test 08/17/17 10:20 08/17/17 22:40 Potassium Level 3.0 mmol/L (3.5-5.1) 3.3 mmol/L (3.5-5.1) Objective Assessment Low grade temps Sepsis Right lower lobe infiltrate. Leukocytosis, trending down MANNY Elevated lactic acid Pulm venous congestion Hypoxic respiratory failure secondary to COPD Hard of hearing. Right upper extremity superficial line thrombophlebitis. History of dementia. History of hypertension. History of hypothyroidism. Plan Plan of Care Zosyn and Levaquin. F/u WBC. With low grade temps may need Zyvox Sputum not collected Supportive care TETE FISHMAN MD Aug 18, 2017 08:15
[2017-08-18] MEDS: FUROSEMIDE 40 MG/4 ML VIAL. IVP SCH (08:31)
[2017-08-18] MEDS: LACTOBACILLUS RHAMNOSUS GG 1 CAPSULE. PO SCH ×2 (08:31→23:06)
[2017-08-18] MEDS: DOCUSATE 100 MG/10 ML SOLUTION. PO SCH (08:31)
[2017-08-18] MEDS: lamoTRIgine 100 MG TABLET. PO SCH (08:31)
[2017-08-18] MEDS: LEVOTHYROXINE 50 MCG TABLET PO SCH (08:31)
[2017-08-18] MEDS: DUTASTERIDE 0.5 MG CAPSULE PO SCH (08:32)
[2017-08-18] MEDS: POTASSIUM CHLORIDE 20 MEQ/15 ML ORAL LIQUID. PEG SCH ×2 (08:32→23:06)
[2017-08-18] MEDS: IPRATRPIUM/ALBUTEROL 0.5/2.5MG 3 ML NEBU. NEB SCH ×4 (08:35→19:45)
[2017-08-18 08:44] LABS: BASO % 0 % (0-3); EOS % 0 % (0-3); HEMATOCRIT 39.2 % (39.0-53.0); HEMOGLOBIN 13.2 g/dL (13.0-17.5); LYMPH # 1.4 x10^3/uL (1.0-4.8); LYMPH % 12 % (24-48); MEAN CORPUSCULAR HEMOGLOBIN 32 pg (25-35); MEAN CORPUSCULAR HGB CONC 34 g/dL (31-37); MEAN CORPUSCULAR VOLUME 95 fL (79-100); MONO % 5 % (0-9); NEUT % 82 % (31-73); PLATELET COUNT 133 x10^3/uL (140-400); RED BLOOD COUNT 4.14 x10^6/uL (4.30-5.70); RED CELL DISTRIBUTION WIDTH 15.4 % (11.5-14.5)
[2017-08-18 08:51] LABS: CALCIUM 7.6 mg/dL (8.5-10.1); CREATININE 1.4 mg/dL (0.7-1.3); GFR 47.8; POTASSIUM 3.5 mmol/L (3.5-5.1)
--- NOTE | 2017-08-18 09:07 | PDOC ---
PROGRESS NOTES Chief Complaint Chief Complaint 1. pneumonia, hypoxic respiratory faiulre, no bipap > 1 days 2. Severe sepsis with HYPOTENSION, infectious 3. Dementia, chronic encephalopathy 4. Hypocalcemia 5. 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 hypothyroidism - on synthroid 7. Elevated lactate, severe sepsis 8. Hypoxic respi failure sec to CAP 9, hypokalemia, now improved History of Present Illness History of Present Illness in ICU. In mild distress today, on BIPAP 70% O2. getting fed per dobhoff, he asked for bipap to be removed, but is calm and compliant poor prognosis and family has expressed understanding palliative care followoing, re: their long-term care goals. Vitals Vitals Vital Signs Date Time Temp Pulse Resp B/P (MAP) Pulse Ox O2 Delivery O2 Flow Rate FiO2 08/18/17 08:35 96 BiPAP/CPAP 08/18/17 06:00 79 27 119/55 (76) 08/18/17 04:00 99.8 99.8 08/17/17 19:00 15.0 Physical Exam General: moderate distress, Other (SOMNULENT) Heart: Regular rate, Normal S1, Normal S2, No murmurs, Gallops Lungs: Crackles Abdomen: Normal bowel sounds, Soft, No tenderness, No hepatosplenomegaly, No masses Extremities: No clubbing, No cyanosis, No edema, Normal pulses, No tenderness/ swelling Skin: No rashes, No breakdown, No significant lesion Labs LABS Laboratory Tests Test 08/17/17 10:20 08/17/17 22:40 08/18/17 08:20 Potassium Level 3.0 mmol/L (3.5-5.1) 3.3 mmol/L (3.5-5.1) 3.5 mmol/L (3.5-5.1) White Blood Count 11.0 x10^3/uL (4.0-11.0) Red Blood Count 4.14 x10^6/uL (4.30-5.70) Hemoglobin 13.2 g/dL (13.0-17.5) Hematocrit 39.2 % (39.0-53.0) Mean Corpuscular Volume 95 fL (79-100) Mean Corpuscular Hemoglobin 32 pg (25-35) Mean Corpuscular Hemoglobin Concent 34 g/dL (31-37) Red Cell Distribution Width 15.4 % (11.5-14.5) Platelet Count 133 x10^3/uL (140-400) Neutrophils (%) (Auto) 82 % (31-73) Lymphocytes (%) (Auto) 12 % (24-48) Monocytes (%) (Auto) 5 % (0-9) Eosinophils (%) (Auto) 0 % (0-3) Basophils (%) (Auto) 0 % (0-3) Neutrophils # (Auto) 9.0 x10^3uL (1.8-7.7) Lymphocytes # (Auto) 1.4 x10^3/uL (1.0-4.8) Monocytes # (Auto) 0.6 x10^3/uL (0.0-1.1) Eosinophils # (Auto) 0.0 x10^3/uL (0.0-0.7) Basophils # (Auto) 0.0 x10^3/uL (0.0-0.2) Sodium Level 153 mmol/L (136-145) Chloride Level 115 mmol/L (98-107) Carbon Dioxide Level 25 mmol/L (21-32) Anion Gap 13 (6-14) Blood Urea Nitrogen 46 mg/dL (8-26) Creatinine 1.4 mg/dL (0.7-1.3) Estimated GFR (Cockcroft-Gault) 47.8 Glucose Level 156 mg/dL (70-99) Calcium Level 7.6 mg/dL (8.5-10.1) Review of Systems Review of Systems no n,v,d resp distress Assessment and Plan Assessmemt and Plan Problems Medical Problems: (1) Community acquired pneumonia Status: Acute (2) Dementia Status: Acute (3) Lactic acidosis Status: Acute (4) Severe sepsis Status: Acute Problems: Comment Review of Relevant I have reviewed the following items emmanuel (where applicable) has been applied. Labs Laboratory Tests Test 08/17/17 04:30 08/17/17 05:10 08/17/17 10:20 08/17/17 22:40 Sodium Level 145 mmol/L (136-145) Potassium Level 2.9 mmol/L (3.5-5.1) 3.0 mmol/L (3.5-5.1) 3.3 mmol/L (3.5-5.1) Chloride Level 110 mmol/L (98-107) Carbon Dioxide Level 26 mmol/L (21-32) Anion Gap 9 (6-14) Blood Urea Nitrogen 42 mg/dL (8-26) Creatinine 1.5 mg/dL (0.7-1.3) Estimated GFR (Cockcroft-Gault) 44.2 BUN/Creatinine Ratio 28 (6-20) Glucose Level 139 mg/dL (70-99) Calcium Level 7.3 mg/dL (8.5-10.1) Total Bilirubin 1.1 mg/dL (0.2-1.0) Aspartate Amino Transf (AST/SGOT) 48 U/L (15-37) Alanine Aminotransferase (ALT/SGPT) 39 U/L (16-63) Alkaline Phosphatase 59 U/L (46-116) Total Protein 5.9 g/dL (6.4-8.2) Albumin 1.9 g/dL (3.4-5.0) Albumin/Globulin Ratio 0.5 (1.0-1.7) White Blood Count 13.7 x10^3/uL (4.0-11.0) Red Blood Count 4.21 x10^6/uL (4.30-5.70) Hemoglobin 13.0 g/dL (13.0-17.5) Hematocrit 38.7 % (39.0-53.0) Mean Corpuscular Volume 92 fL (79-100) Mean Corpuscular Hemoglobin 31 pg (25-35) Mean Corpuscular Hemoglobin Concent 34 g/dL (31-37) Red Cell Distribution Width 14.4 % (11.5-14.5) Platelet Count 138 x10^3/uL (140-400) Neutrophils (%) (Auto) 81 % (31-73) Lymphocytes (%) (Auto) 12 % (24-48) Monocytes (%) (Auto) 7 % (0-9) Eosinophils (%) (Auto) 0 % (0-3) Basophils (%) (Auto) 0 % (0-3) Neutrophils # (Auto) 11.1 x10^3uL (1.8-7.7) Lymphocytes # (Auto) 1.7 x10^3/uL (1.0-4.8) Monocytes # (Auto) 0.9 x10^3/uL (0.0-1.1) Eosinophils # (Auto) 0.0 x10^3/uL (0.0-0.7) Basophils # (Auto) 0.1 x10^3/uL (0.0-0.2) Magnesium Level 2.2 mg/dL (1.8-2.4) Test 08/18/17 08:20 White Blood Count 11.0 x10^3/uL (4.0-11.0) Red Blood Count 4.14 x10^6/uL (4.30-5.70) Hemoglobin 13.2 g/dL (13.0-17.5) Hematocrit 39.2 % (39.0-53.0) Mean Corpuscular Volume 95 fL (79-100) Mean Corpuscular Hemoglobin 32 pg (25-35) Mean Corpuscular Hemoglobin Concent 34 g/dL (31-37) Red Cell Distribution Width 15.4 % (11.5-14.5) Platelet Count 133 x10^3/uL (140-400) Neutrophils (%) (Auto) 82 % (31-73) Lymphocytes (%) (Auto) 12 % (24-48) Monocytes (%) (Auto) 5 % (0-9) Eosinophils (%) (Auto) 0 % (0-3) Basophils (%) (Auto) 0 % (0-3) Neutrophils # (Auto) 9.0 x10^3uL (1.8-7.7) Lymphocytes # (Auto) 1.4 x10^3/uL (1.0-4.8) Monocytes # (Auto) 0.6 x10^3/uL (0.0-1.1) Eosinophils # (Auto) 0.0 x10^3/uL (0.0-0.7) Basophils # (Auto) 0.0 x10^3/uL (0.0-0.2) Sodium Level 153 mmol/L (136-145) Potassium Level 3.5 mmol/L (3.5-5.1) Chloride Level 115 mmol/L (98-107) Carbon Dioxide Level 25 mmol/L (21-32) Anion Gap 13 (6-14) Blood Urea Nitrogen 46 mg/dL (8-26) Creatinine 1.4 mg/dL (0.7-1.3) Estimated GFR (Cockcroft-Gault) 47.8 Glucose Level 156 mg/dL (70-99) Calcium Level 7.6 mg/dL (8.5-10.1) Laboratory Tests Test 08/17/17 10:20 08/17/17 22:40 08/18/17 08:20 Potassium Level 3.0 mmol/L (3.5-5.1) 3.3 mmol/L (3.5-5.1) 3.5 mmol/L (3.5-5.1) White Blood Count 11.0 x10^3/uL (4.0-11.0) Red Blood Count 4.14 x10^6/uL (4.30-5.70) Hemoglobin 13.2 g/dL (13.0-17.5) Hematocrit 39.2 % (39.0-53.0) Mean Corpuscular Volume 95 fL (79-100) Mean Corpuscular Hemoglobin 32 pg (25-35) Mean Corpuscular Hemoglobin Concent 34 g/dL (31-37) Red Cell Distribution Width 15.4 % (11.5-14.5) Platelet Count 133 x10^3/uL (140-400) Neutrophils (%) (Auto) 82 % (31-73) Lymphocytes (%) (Auto) 12 % (24-48) Monocytes (%) (Auto) 5 % (0-9) Eosinophils (%) (Auto) 0 % (0-3) Basophils (%) (Auto) 0 % (0-3) Neutrophils # (Auto) 9.0 x10^3uL (1.8-7.7) Lymphocytes # (Auto) 1.4 x10^3/uL (1.0-4.8) Monocytes # (Auto) 0.6 x10^3/uL (0.0-1.1) Eosinophils # (Auto) 0.0 x10^3/uL (0.0-0.7) Basophils # (Auto) 0.0 x10^3/uL (0.0-0.2) Sodium Level 153 mmol/L (136-145) Chloride Level 115 mmol/L (98-107) Carbon Dioxide Level 25 mmol/L (21-32) Anion Gap 13 (6-14) Blood Urea Nitrogen 46 mg/dL (8-26) Creatinine 1.4 mg/dL (0.7-1.3) Estimated GFR (Cockcroft-Gault) 47.8 Glucose Level 156 mg/dL (70-99) Calcium Level 7.6 mg/dL (8.5-10.1) Microbiology 08/12/17 Blood Culture - Final, Complete NO GROWTH AFTER 5 DAYS Medications Current Medications Sodium Chloride 1,000 ml @ 2,040 mls/hr Q30M IV Last administered on 18:30; Start 08/12/17 at 18:21; Stop 08/12/17 at 19:21; Status DC Levofloxacin/ Dextrose (Levaquin Per Pharmacy) 1 each PRN DAILY PRN MC SEE COMMENTS; Start 08/12/17 at 18:30; Stop 08/14/17 at 08:56; Status DC Calcium Gluconate (Calcium Gluconate) 2,000 mg 1X ONCE IVP Last administered on 08/12/17 19:12; Start 08/12/17 at 18:30; Stop 08/12/17 at 18:38; Status DC Docusate Sodium (Colace) 200 mg DAILY PO Last administered on 08/15/17 13:43 ; Start 08/13/17 at 09:00; Stop 08/16/17 at 14:07; Status DC Dutasteride (Avodart) 0.5 mg DAILY PO Last administered on 08/18/17 08:32; Start 08/13/17 at 09:00 Lamotrigine (LaMICtal) 200 mg DAILY PO Last administered on 08/18/17 08:31; Start 08/13/17 at 09:00 Levothyroxine Sodium (Synthroid) 50 mcg DAILY PO Last administered on 08:31; Start 08/13/17 at 09:00 Vitamin D (Vitamin D3) 2,000 unit DAILY PO Last administered on 08/15/17 13: 43; Start 08/13/17 at 09:00; Stop 08/16/17 at 14:07; Status DC Calcium/Vitamin D (Oscal D 250mg/ 125uts) 1 tab [id number] PO Last administered on 08/15/17 13:43; Start 08/13/17 at 08:00; Stop 08/16/17 at 14: 07; Status DC Albuterol/ Ipratropium (Duoneb) 3 ml RTQID NEB ; Start 08/12/17 at 20:00; Status Cancel Guaifenesin (Robitussin Dm) 10 ml PRN Q6HRS PRN PO COUGH; Start 08/12/17 at 18: 45 Levofloxacin/ Dextrose 150 ml @ As Directed STK-MED ONCE IV ; Start 08/12/17 at 18:32; Stop 08/12/17 at 18:33; Status DC Levofloxacin/ Dextrose 150 ml @ 100 mls/hr ONCE ONCE IV Last administered on 08/12/17 19:29; Start 08/12/17 at 18:45; Stop 08/12/17 at 20:14; Status DC Enoxaparin Sodium (Lovenox 40mg Syringe) 40 mg Q24H SQ Last administered on 19:46; Start 08/12/17 at 19:00; Stop 08/15/17 at 12:39; Status DC Albuterol/ Ipratropium (Duoneb) 3 ml RTQID NEB Last administered on 08/18/17 08:35; Start 08/12/17 at 20:00 Benzonatate (Tessalon Perle) 100 mg [id number] PO Last administered on 08/16/17 08:54; Start 08/12/17 at 21:00; Stop 08/16/17 at 14:07; Status DC Levofloxacin/ Dextrose 50 ml @ 50 mls/hr Q24H IV ; Start 08/13/17 at 19:30; Stop 08/13/17 at 19:30; Status DC Sodium Chloride 1,000 ml @ 100 mls/hr Q10H IV Last administered on 08/13/17 07:44; Start 08/12/17 at 19:41; Stop 08/13/17 at 19:40; Status DC Norepinephrine Bitartrate 250 ml @ 0 mls/hr CONT PRN IV SEE I/O RECORD Last administered on 08/14/17 19:46; Start 08/12/17 at 21:00 Vancomycin HCl 250 ml @ 250 mls/hr 1X ONCE IV Last administered on 08/12/17 21:00; Start 08/12/17 at 21:00; Stop 08/12/17 at 21:19; Status DC Vancomycin HCl 1.75 gm/Dextrose 500 ml @ 250 mls/hr 1X ONCE IV Last administered on 08/12/17 21:18; Start 08/12/17 at 22:00; Stop 08/12/17 at 23:59 ; Status DC Vancomycin HCl (Vanco Per Pharmacy) 1 each PRN DAILY PRN MC SEE COMMENTS Last administered on 08/14/17 23:02; Start 08/12/17 at 21:30; Stop 08/15/17 at 08: 44; Status DC Piperacillin Sod/ Tazobactam Sod 3.375 gm/Dextrose 50 ml @ 100 mls/hr Q6HRS IV ; Start 08/13/17 at 08:30; Status Cancel Vancomycin HCl (Vanco Per Pharmacy) 1 each PRN DAILY PRN MC SEE COMMENTS; Start 08/13/17 at 08:15; Stop 08/13/17 at 08:19; Status DC Vancomycin HCl 1 gm/Dextrose 250 ml @ 250 mls/hr Q24H IV Last administered on 08/14/17 21:21; Start 08/13/17 at 21:00; Stop 08/15/17 at 08:43; Status DC Vancomycin HCl 1 each 1X ONCE MC ; Start 08/14/17 at 20:30; Stop 08/14/17 at 20 :31; Status DC Piperacillin Sod/ Tazobactam Sod (Zosyn) 3.375 gm Q6HRS IVP Last administered on 08/15/17 05:28; Start 08/13/17 at 08:45; Stop 08/15/17 at 08:46; Status DC Levofloxacin/ Dextrose 150 ml @ 100 mls/hr Q48H IV Last administered on 17:13; Start 08/14/17 at 19:00 Diphenhydramine HCl (Benadryl) 25 mg PRN Q6HRS PRN PO ITCHING Last administered on 08/13/17 19:57; Start 08/13/17 at 19:45 Zolpidem Tartrate (Ambien) 5 mg 1X ONCE PO ; Start 08/13/17 at 21:30; Stop 08/13/17 at 21:31; Status DC Sodium Chloride 1,000 ml @ 100 mls/hr Q10H IV Last administered on 08/14/17 18:15; Start 08/14/17 at 08:00; Stop 08/15/17 at 19:03; Status DC Lactobacillus Rhamnosus (Culturelle) 1 cap BID PO Last administered on 08:31; Start 08/14/17 at 21:00 Sodium Chloride 500 ml @ 500 mls/hr 1X ONCE IV Last administered on 19:48; Start 08/14/17 at 19:00; Stop 08/14/17 at 19:59; Status DC Lorazepam (Ativan) 1 mg PRN Q2HRS PRN PO ANXIETY / AGITATION Last administered on 08/15/17 13:42; Start 08/14/17 at 19:30 Furosemide (Lasix) 20 mg 1X ONCE IVP Last administered on 08/15/17 08:30; Start 08/15/17 at 08:30; Stop 08/15/17 at 08:31; Status DC Enoxaparin Sodium (Lovenox 30mg Syringe) 30 mg Q24H SQ Last administered on 16:30; Start 08/15/17 at 17:00 Furosemide (Lasix) 40 mg DAILY IVP Last administered on 08/18/17 08:31; Start 08/15/17 at 15:00; Stop 08/18/17 at 09:00 Haloperidol Lactate (Haldol) 5 mg PRN Q6HRS PRN IVP AGITATION Last administered on 08/16/17 00:08; Start 08/15/17 at 18:15 Diphenhydramine HCl (Benadryl) 25 mg PRN Q6HRS PRN IVP ITCHING Last administered on 08/16/17 13:51; Start 08/15/17 at 19:15 Dextrose 500 ml @ 500 mls/hr 1X ONCE IV Last administered on 08/16/17 11:00 ; Start 08/16/17 at 11:00; Stop 08/16/17 at 11:59; Status DC Potassium Chloride 40 meq/ Dextrose 1,020 ml @ 75 mls/hr 1X ONCE IV Last administered on 08/16/17 12:51; Start 08/16/17 at 11:00; Stop 08/17/17 at 00 :35; Status DC Docusate Sodium (Colace Solution) 100 mg DAILY PO Last administered on 08:31; Start 08/17/17 at 09:00 Piperacillin Sod/ Tazobactam Sod 2.25 gm/Dextrose 50 ml @ 100 mls/hr Q6HRS IV ; Start 08/16/17 at 18:00; Status UNV Piperacillin Sod/ Tazobactam Sod (Zosyn) 2.25 gm Q6HRS IVP Last administered on 08/18/17 06:00; Start 08/16/17 at 18:00 Morphine Sulfate 2 mg PRN Q2HR PRN IV PAIN; Start 08/16/17 at 17:45 Morphine Sulfate 4 mg PRN Q2HR PRN IV PAIN Last administered on 08/16/17 17: 58; Start 08/16/17 at 17:45 Morphine Sulfate 6 mg PRN Q2HR PRN IV PAIN; Start 08/16/17 at 17:45 Potassium Chloride (KCl Oral Soln) 40 meq 1X ONCE PEG Last administered on 06:26; Start 08/17/17 at 07:00; Stop 08/17/17 at 07:01; Status DC Potassium Chloride (KCl Oral Soln) 20 meq BID PEG ; Start 08/17/17 at 21:00; Status Cancel Potassium Chloride (KCl Oral Soln) 40 meq 1X ONCE PEG Last administered on 16:30; Start 08/17/17 at 16:00; Stop 08/17/17 at 16:01; Status DC Potassium Chloride (KCl Oral Soln) 20 meq BID PEG Last administered on 08:32; Start 08/18/17 at 09:00 Active Scripts Active Reported Avodart (Dutasteride) 0.5 Mg Capsule 1 Cap PO DAILY Docusate Sodium 100 Mg Capsule 2 Cap PO DAILY Caltrate 600 + D Tablet (Calcium Carbonate/Vitamin D3) 1 Each Tablet 1 Each PO Vitamin D (Cholecalciferol (Vitamin D3)) 2,000 Unit Capsule 1 Cap PO DAILY Carvedilol 6.25 Mg Tablet 0.5 Tab PO DAILY Lamictal (Lamotrigine) 100 Mg Tablet 2 Tab PO DAILY Levothyroxine Sodium 50 Mcg Tablet 1 Tab PO DAILY Vitals/I & O Vital Sign - Last 24 Hours 08/17/17 08/17/17 08/17/17 08/17/17 10:00 11:00 11:08 12:00 Temp 99.8 99.8 Pulse 90 93 Resp 25 28 B/P (MAP) 102/53 (69) 104/54 (71) Pulse Ox 94 94 95 O2 Delivery BiPAP/CPAP BiPAP/CPAP BiPAP/CPAP Bi-pap 08/17/17 08/17/17 08/17/17 08/17/17 12:00 13:00 13:12 14:00 Pulse 67 90 92 Resp 29 26 30 B/P (MAP) 87/59 (68) 94/54 (67) 101/57 (72) Pulse Ox 96 98 97 96 O2 Delivery BiPAP/CPAP BiPAP/CPAP BiPAP/CPAP BiPAP/CPAP 08/17/17 08/17/17 08/17/17 08/17/17 14:56 15:00 16:00 16:00 Temp 99.4 99.4 Pulse 78 92 Resp 32 40 B/P (MAP) 106/55 (72) 117/58 (77) Pulse Ox 97 97 93 O2 Delivery BiPAP/CPAP BiPAP/CPAP NonRebreather Mask Non-Rebreather O2 Flow Rate 15.0 15.0 08/17/17 08/17/17 08/17/17 08/17/17 16:52 17:00 18:00 19:00 Temp 99.8 99.8 Pulse 71 91 72 Resp 34 34 35 B/P (MAP) 115/62 (79) 100/49 (66) 106/45 (65) Pulse Ox 86 91 91 92 O2 Delivery NonRebreather Mask NonRebreather Mask NonRebreather Mask NonRebreather Mask O2 Flow Rate 15.0 15.0 15.0 15.0 08/17/17 08/17/17 08/17/17 08/17/17 19:45 19:45 19:52 20:00 Pulse 71 Resp 34 28 B/P (MAP) 91/46 (61) Pulse Ox 94 97 95 O2 Delivery BiPAP/CPAP Bi-pap BiPAP/CPAP BiPAP/CPAP 08/17/17 08/17/17 08/17/17 08/17/17 21:00 22:00 23:04 23:42 Pulse 70 66 79 Resp 30 30 28 B/P (MAP) 103/47 (65) 100/50 (67) 87/54 (65) Pulse Ox 92 92 96 96 O2 Delivery BiPAP/CPAP BiPAP/CPAP BiPAP/CPAP BiPAP/CPAP 08/18/17 08/18/17 08/18/17 08/18/17 00:00 00:10 01:00 02:00 Temp 98.9 98.9 Pulse 72 66 68 Resp 33 33 33 B/P (MAP) 94/60 (71) 82/46 (58) 81/53 (62) Pulse Ox 93 93 93 O2 Delivery BiPAP/CPAP Bi-pap BiPAP/CPAP BiPAP/CPAP 08/18/17 08/18/17 08/18/17 08/18/17 02:20 03:00 04:00 04:10 Temp 99.8 99.8 Pulse 82 98 Resp 33 35 B/P (MAP) 96/52 (67) 120/57 (78) Pulse Ox 96 94 96 O2 Delivery BiPAP/CPAP BiPAP/CPAP BiPAP/CPAP Bi-pap 08/18/17 08/18/17 08/18/17 08/18/17 05:00 05:41 06:00 08:35 Pulse 89 79 Resp 27 27 B/P (MAP) 105/59 (74) 119/55 (76) Pulse Ox 95 95 95 96 O2 Delivery BiPAP/CPAP BiPAP/CPAP BiPAP/CPAP BiPAP/CPAP RODNEY ALAS MD Aug 18, 2017 09:07
--- NOTE | 2017-08-18 10:25 | PDOC ---
PULMONARY PROGRESS NOTES Subjective On BIPAP comfortable Vitals Vital Signs Date Time Temp Pulse Resp B/P (MAP) Pulse Ox O2 Delivery O2 Flow Rate FiO2 08/18/17 08:35 96 BiPAP/CPAP 08/18/17 06:00 79 27 119/55 (76) 08/18/17 04:00 99.8 99.8 08/17/17 19:00 15.0 General: Alert, No acute distress Lungs: Other (decrease bs) Cardiovascular: S1, S2 Abdomen: Soft, Non-tender Neuro Exam: Alert Extremities: Other (1+edema) Skin: Warm Labs Laboratory Tests Test 08/17/17 04:30 08/17/17 05:10 08/17/17 10:20 08/17/17 22:40 Sodium Level 145 mmol/L (136-145) Potassium Level 2.9 mmol/L (3.5-5.1) 3.0 mmol/L (3.5-5.1) 3.3 mmol/L (3.5-5.1) Chloride Level 110 mmol/L (98-107) Carbon Dioxide Level 26 mmol/L (21-32) Anion Gap 9 (6-14) Blood Urea Nitrogen 42 mg/dL (8-26) Creatinine 1.5 mg/dL (0.7-1.3) Estimated GFR (Cockcroft-Gault) 44.2 BUN/Creatinine Ratio 28 (6-20) Glucose Level 139 mg/dL (70-99) Calcium Level 7.3 mg/dL (8.5-10.1) Total Bilirubin 1.1 mg/dL (0.2-1.0) Aspartate Amino Transf (AST/SGOT) 48 U/L (15-37) Alanine Aminotransferase (ALT/SGPT) 39 U/L (16-63) Alkaline Phosphatase 59 U/L (46-116) Total Protein 5.9 g/dL (6.4-8.2) Albumin 1.9 g/dL (3.4-5.0) Albumin/Globulin Ratio 0.5 (1.0-1.7) White Blood Count 13.7 x10^3/uL (4.0-11.0) Red Blood Count 4.21 x10^6/uL (4.30-5.70) Hemoglobin 13.0 g/dL (13.0-17.5) Hematocrit 38.7 % (39.0-53.0) Mean Corpuscular Volume 92 fL (79-100) Mean Corpuscular Hemoglobin 31 pg (25-35) Mean Corpuscular Hemoglobin Concent 34 g/dL (31-37) Red Cell Distribution Width 14.4 % (11.5-14.5) Platelet Count 138 x10^3/uL (140-400) Neutrophils (%) (Auto) 81 % (31-73) Lymphocytes (%) (Auto) 12 % (24-48) Monocytes (%) (Auto) 7 % (0-9) Eosinophils (%) (Auto) 0 % (0-3) Basophils (%) (Auto) 0 % (0-3) Neutrophils # (Auto) 11.1 x10^3uL (1.8-7.7) Lymphocytes # (Auto) 1.7 x10^3/uL (1.0-4.8) Monocytes # (Auto) 0.9 x10^3/uL (0.0-1.1) Eosinophils # (Auto) 0.0 x10^3/uL (0.0-0.7) Basophils # (Auto) 0.1 x10^3/uL (0.0-0.2) Magnesium Level 2.2 mg/dL (1.8-2.4) Test 08/18/17 08:20 White Blood Count 11.0 x10^3/uL (4.0-11.0) Red Blood Count 4.14 x10^6/uL (4.30-5.70) Hemoglobin 13.2 g/dL (13.0-17.5) Hematocrit 39.2 % (39.0-53.0) Mean Corpuscular Volume 95 fL (79-100) Mean Corpuscular Hemoglobin 32 pg (25-35) Mean Corpuscular Hemoglobin Concent 34 g/dL (31-37) Red Cell Distribution Width 15.4 % (11.5-14.5) Platelet Count 133 x10^3/uL (140-400) Neutrophils (%) (Auto) 82 % (31-73) Lymphocytes (%) (Auto) 12 % (24-48) Monocytes (%) (Auto) 5 % (0-9) Eosinophils (%) (Auto) 0 % (0-3) Basophils (%) (Auto) 0 % (0-3) Neutrophils # (Auto) 9.0 x10^3uL (1.8-7.7) Lymphocytes # (Auto) 1.4 x10^3/uL (1.0-4.8) Monocytes # (Auto) 0.6 x10^3/uL (0.0-1.1) Eosinophils # (Auto) 0.0 x10^3/uL (0.0-0.7) Basophils # (Auto) 0.0 x10^3/uL (0.0-0.2) Sodium Level 153 mmol/L (136-145) Potassium Level 3.5 mmol/L (3.5-5.1) Chloride Level 115 mmol/L (98-107) Carbon Dioxide Level 25 mmol/L (21-32) Anion Gap 13 (6-14) Blood Urea Nitrogen 46 mg/dL (8-26) Creatinine 1.4 mg/dL (0.7-1.3) Estimated GFR (Cockcroft-Gault) 47.8 Glucose Level 156 mg/dL (70-99) Calcium Level 7.6 mg/dL (8.5-10.1) Laboratory Tests Test 08/17/17 22:40 08/18/17 08:20 Potassium Level 3.3 mmol/L (3.5-5.1) 3.5 mmol/L (3.5-5.1) White Blood Count 11.0 x10^3/uL (4.0-11.0) Red Blood Count 4.14 x10^6/uL (4.30-5.70) Hemoglobin 13.2 g/dL (13.0-17.5) Hematocrit 39.2 % (39.0-53.0) Mean Corpuscular Volume 95 fL (79-100) Mean Corpuscular Hemoglobin 32 pg (25-35) Mean Corpuscular Hemoglobin Concent 34 g/dL (31-37) Red Cell Distribution Width 15.4 % (11.5-14.5) Platelet Count 133 x10^3/uL (140-400) Neutrophils (%) (Auto) 82 % (31-73) Lymphocytes (%) (Auto) 12 % (24-48) Monocytes (%) (Auto) 5 % (0-9) Eosinophils (%) (Auto) 0 % (0-3) Basophils (%) (Auto) 0 % (0-3) Neutrophils # (Auto) 9.0 x10^3uL (1.8-7.7) Lymphocytes # (Auto) 1.4 x10^3/uL (1.0-4.8) Monocytes # (Auto) 0.6 x10^3/uL (0.0-1.1) Eosinophils # (Auto) 0.0 x10^3/uL (0.0-0.7) Basophils # (Auto) 0.0 x10^3/uL (0.0-0.2) Sodium Level 153 mmol/L (136-145) Chloride Level 115 mmol/L (98-107) Carbon Dioxide Level 25 mmol/L (21-32) Anion Gap 13 (6-14) Blood Urea Nitrogen 46 mg/dL (8-26) Creatinine 1.4 mg/dL (0.7-1.3) Estimated GFR (Cockcroft-Gault) 47.8 Glucose Level 156 mg/dL (70-99) Calcium Level 7.6 mg/dL (8.5-10.1) Medications Active Scripts Medications Dose Route/Sig Max Daily Dose Days Date Category Avodart (Dutasteride) 0.5 Mg Capsule 1 Cap PO DAILY 08/12/17 Reported Docusate Sodium 100 Mg Capsule 2 Cap PO DAILY 08/12/17 Reported Caltrate 600 + D Tablet (Calcium Carbonate/Vitamin D3) 1 Each Tablet 1 Each PO 08/12/17 Reported Vitamin D (Cholecalciferol (Vitamin D3)) 2,000 Unit Capsule 1 Cap PO DAILY 08/12/17 Reported Carvedilol 6.25 Mg Tablet 0.5 Tab PO DAILY 08/12/17 Reported Lamictal (Lamotrigine) 100 Mg Tablet 2 Tab PO DAILY 08/12/17 Reported Levothyroxine Sodium 50 Mcg Tablet 1 Tab PO DAILY 08/12/17 Reported Comments 08/18 AGATHA INFILTRATES / IMPROVED SINCE 08/15 Impression . 1. Acute resp failure POA/Abnormal x-ray compatible with pneumonia, suspect gram negative.ARDS/ ? component of CHF 2. Septic shock, improved, off pressors 3. Mild protein malnutrition, present upon admission. 4. Tobacco abuse, in remission. 5. Hypothyroidism. 6. Dementia. 7. Acute toxic encephalopathy, present upon admission. improved 8. Hypernatremia 9. Hypokalemia . Plan . CLINICALLY BETTER SINCE ON BIPAP CXR HAS IMPROVED SINCE DIURESIS SPOKE WITH DAUGHTERS AT BEDSIDE, WEAN FIO2 IV LASIX FOR 3 DAYS ANITBX PT IS DNR/DNI JARRED MCGOVERN MD Aug 18, 2017 10:25
--- NOTE | 2017-08-18 11:23 | PDOC ---
Renal-Progress Notes Subjective Notes Notes NONE, ON BIPAP History of Present Illness Hx of present illness STABLE Vitals Vitals Vital Signs Date Time Temp Pulse Resp B/P (MAP) Pulse Ox O2 Delivery O2 Flow Rate FiO2 08/18/17 10:00 69 32 93/47 (62) 96 BiPAP/CPAP 08/18/17 09:00 98.8 98.8 08/17/17 19:00 15.0 Weight Weight [ ] I.O. Intake and Output Intake and Output 08/18/17 07:00 Intake Total 1606 ml Output Total 1955 ml Balance -349 ml Tube Feeding 955 ml Other 651 ml Output Urine Total 1955 ml Labs Labs Laboratory Tests Test 08/17/17 22:40 08/18/17 08:20 Potassium Level 3.3 mmol/L (3.5-5.1) 3.5 mmol/L (3.5-5.1) White Blood Count 11.0 x10^3/uL (4.0-11.0) Red Blood Count 4.14 x10^6/uL (4.30-5.70) Hemoglobin 13.2 g/dL (13.0-17.5) Hematocrit 39.2 % (39.0-53.0) Mean Corpuscular Volume 95 fL (79-100) Mean Corpuscular Hemoglobin 32 pg (25-35) Mean Corpuscular Hemoglobin Concent 34 g/dL (31-37) Red Cell Distribution Width 15.4 % (11.5-14.5) Platelet Count 133 x10^3/uL (140-400) Neutrophils (%) (Auto) 82 % (31-73) Lymphocytes (%) (Auto) 12 % (24-48) Monocytes (%) (Auto) 5 % (0-9) Eosinophils (%) (Auto) 0 % (0-3) Basophils (%) (Auto) 0 % (0-3) Neutrophils # (Auto) 9.0 x10^3uL (1.8-7.7) Lymphocytes # (Auto) 1.4 x10^3/uL (1.0-4.8) Monocytes # (Auto) 0.6 x10^3/uL (0.0-1.1) Eosinophils # (Auto) 0.0 x10^3/uL (0.0-0.7) Basophils # (Auto) 0.0 x10^3/uL (0.0-0.2) Sodium Level 153 mmol/L (136-145) Chloride Level 115 mmol/L (98-107) Carbon Dioxide Level 25 mmol/L (21-32) Anion Gap 13 (6-14) Blood Urea Nitrogen 46 mg/dL (8-26) Creatinine 1.4 mg/dL (0.7-1.3) Estimated GFR (Cockcroft-Gault) 47.8 Glucose Level 156 mg/dL (70-99) Calcium Level 7.6 mg/dL (8.5-10.1) Micro Micro Microbiology 08/12/17 Blood Culture - Final, Complete NO GROWTH AFTER 5 DAYS Review of Systems Constitutional: yes: other (UNABLE TO OBTAIN) Physical Exam General Appearance: mild distress Skin: warm Respiratory: decreased breath sounds Heart: S1S2 Abdomen: soft, bowel sounds present Genitourinary: bladder flat Extremities: pulses present, no edema, atrophy Neurology: alert Assessment Assessment IMP MANNY BETTER WITH CR OF 1.4 SEPSIS HYPERNATREMIA LEUCOCYTOSIS-BETTER PLAN BIPAP ANTIBIOTICS CONT TF AND WATER FLUSHES IVF D5W THOMAS CRESPO MD Aug 18, 2017 11:23
[2017-08-18] MEDS: IV DEXTROSE 5% 1,000 ML IV SCH (12:51)
[2017-08-18] MEDS: ENOXAPARIN 30 MG/0.3 ML SYRINGE. SQ SCH (17:39)
[2017-08-19] VITALS (23 sets, daily range): BP systolic 80–120; BP diastolic 39–71
[2017-08-19] MEDS: PIPERACILLIN/TAZO IV Push 2.25 GM VIAL. IVP SCH ×4 (00:46→19:13)
[2017-08-19] MEDS: IV DEXTROSE 5% 1,000 ML IV SCH (00:59)
[2017-08-19] MEDS: HALOPERIDOL LACTATE 5 MG/ML VIAL. IVP PRN ×2 (01:01→21:29)
[2017-08-19 06:29] LABS: BASO % 0 % (0-3); EOS % 0 % (0-3); HEMATOCRIT 36.1 % (39.0-53.0); HEMOGLOBIN 12.2 g/dL (13.0-17.5); LYMPH # 1.8 x10^3/uL (1.0-4.8); LYMPH % 13 % (24-48); MEAN CORPUSCULAR HEMOGLOBIN 31 pg (25-35); MEAN CORPUSCULAR HGB CONC 34 g/dL (31-37); MEAN CORPUSCULAR VOLUME 93 fL (79-100); MONO % 5 % (0-9); NEUT % 81 % (31-73); PLATELET COUNT 152 x10^3/uL (140-400); RED CELL DISTRIBUTION WIDTH 14.9 % (11.5-14.5); WHITE BLOOD COUNT 13.3 x10^3/uL (4.0-11.0)
[2017-08-19 06:40] LABS: CALCIUM 7.6 mg/dL (8.5-10.1); CREATININE 1.7 mg/dL (0.7-1.3); GFR 38.2; POTASSIUM 3.3 mmol/L (3.5-5.1)
[2017-08-19] MEDS: IPRATRPIUM/ALBUTEROL 0.5/2.5MG 3 ML NEBU. NEB SCH ×4 (07:39→19:39)
--- NOTE | 2017-08-19 07:44 | PDOC ---
Infectious Disease Note Subjective Subjective On BiPAP Tube feedings via Dobbhoff ROS ROS Hard to understand Vital Sign Vital Signs Vital Signs Date Time Temp Pulse Resp B/P (MAP) Pulse Ox O2 Delivery O2 Flow Rate FiO2 08/19/17 06:00 70 30 115/58 (77) 94 BiPAP/CPAP 08/19/17 04:00 98.3 98.3 08/18/17 20:00 15.0 Physical Exam PHYSICAL EXAM GENERAL: On BiPAP, Looks tired. Bipap removed - OC/op - dry LUNGS: Diminished aeration, nonlabored. HEART: S1S2, pacemaker ABD: Soft, NT, BS active : Garcia EXT: No edema, no cyanosis [employer]: Very alert and moves his extremities SKIN: No rash IV: ok Labs Lab Laboratory Tests Test 08/18/17 08:20 08/19/17 05:00 08/19/17 05:05 White Blood Count 11.0 x10^3/uL (4.0-11.0) 13.3 x10^3/uL (4.0-11.0) Red Blood Count 4.14 x10^6/uL (4.30-5.70) 3.90 x10^6/uL (4.30-5.70) Hemoglobin 13.2 g/dL (13.0-17.5) 12.2 g/dL (13.0-17.5) Hematocrit 39.2 % (39.0-53.0) 36.1 % (39.0-53.0) Mean Corpuscular Volume 95 fL (79-100) 93 fL (79-100) Mean Corpuscular Hemoglobin 32 pg (25-35) 31 pg (25-35) Mean Corpuscular Hemoglobin Concent 34 g/dL (31-37) 34 g/dL (31-37) Red Cell Distribution Width 15.4 % (11.5-14.5) 14.9 % (11.5-14.5) Platelet Count 133 x10^3/uL (140-400) 152 x10^3/uL (140-400) Neutrophils (%) (Auto) 82 % (31-73) 81 % (31-73) Lymphocytes (%) (Auto) 12 % (24-48) 13 % (24-48) Monocytes (%) (Auto) 5 % (0-9) 5 % (0-9) Eosinophils (%) (Auto) 0 % (0-3) 0 % (0-3) Basophils (%) (Auto) 0 % (0-3) 0 % (0-3) Neutrophils # (Auto) 9.0 x10^3uL (1.8-7.7) 10.8 x10^3uL (1.8-7.7) Lymphocytes # (Auto) 1.4 x10^3/uL (1.0-4.8) 1.8 x10^3/uL (1.0-4.8) Monocytes # (Auto) 0.6 x10^3/uL (0.0-1.1) 0.7 x10^3/uL (0.0-1.1) Eosinophils # (Auto) 0.0 x10^3/uL (0.0-0.7) 0.0 x10^3/uL (0.0-0.7) Basophils # (Auto) 0.0 x10^3/uL (0.0-0.2) 0.0 x10^3/uL (0.0-0.2) Sodium Level 153 mmol/L (136-145) 150 mmol/L (136-145) Potassium Level 3.5 mmol/L (3.5-5.1) 3.3 mmol/L (3.5-5.1) Chloride Level 115 mmol/L (98-107) 110 mmol/L (98-107) Carbon Dioxide Level 25 mmol/L (21-32) 30 mmol/L (21-32) Anion Gap 13 (6-14) 10 (6-14) Blood Urea Nitrogen 46 mg/dL (8-26) 50 mg/dL (8-26) Creatinine 1.4 mg/dL (0.7-1.3) 1.7 mg/dL (0.7-1.3) Estimated GFR (Cockcroft-Gault) 47.8 38.2 Glucose Level 156 mg/dL (70-99) 126 mg/dL (70-99) Calcium Level 7.6 mg/dL (8.5-10.1) 7.6 mg/dL (8.5-10.1) Objective Assessment Low grade temps better Sepsis Right lower lobe infiltrate. Leukocytosis, trending up now ? concentration MANNY - worse Pulm venous congestion Hypoxic respiratory failure secondary to COPD - Quickly desats off Bipap Hard of hearing. Right upper extremity superficial line thrombophlebitis. History of dementia. History of hypertension. History of hypothyroidism. Plan Plan of Care Zosyn and Levaquin. F/u WBC/temp. Await palliative f/u. Needs comfort measures Poor prognosis TETE FISHMAN MD Aug 19, 2017 07:43
[2017-08-19] MEDS: LACTOBACILLUS RHAMNOSUS GG 1 CAPSULE. PO SCH ×2 (08:20→21:30)
[2017-08-19] MEDS: MORPHINE SULFATE 4 MG/ML DISP.SYRIN. IV PRN ×3 (08:20→19:25)
[2017-08-19] MEDS: DUTASTERIDE 0.5 MG CAPSULE PO SCH (08:21)
[2017-08-19] MEDS: POTASSIUM CHLORIDE 20 MEQ/15 ML ORAL LIQUID. PEG SCH ×2 (08:21→21:30)
[2017-08-19] MEDS: lamoTRIgine 100 MG TABLET. PO SCH (08:21)
[2017-08-19] MEDS: LEVOTHYROXINE 50 MCG TABLET PO SCH (08:21)
[2017-08-19] MEDS: DOCUSATE 100 MG/10 ML SOLUTION. PO SCH (09:00)
--- NOTE | 2017-08-19 09:37 | PDOC ---
PROGRESS NOTES Chief Complaint Chief Complaint 1. pneumonia, hypoxic respiratory faiulre, no bipap > 1 days 2. Severe sepsis with HYPOTENSION, infectious 3. Dementia, chronic encephalopathy 4. Hypocalcemia 5. 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 hypothyroidism - on synthroid 7. Elevated lactate, severe sepsis 8. Hypoxic respi failure sec to CAP 9, hypokalemia, now improved History of Present Illness History of Present Illness in ICU. In mild distress today, on BIPAP still, tolerating well lethargic, but communicating getting fed per dobhoff, is calm and compliant poor prognosis palliative care has seen Vitals Vitals Vital Signs Date Time Temp Pulse Resp B/P (MAP) Pulse Ox O2 Delivery O2 Flow Rate FiO2 08/19/17 09:00 67 20 112/52 (72) 97 BiPAP/CPAP 08/19/17 08:20 15.0 08/19/17 07:00 98.5 98.5 Physical Exam General: moderate distress, Other (SOMNULENT) Heart: Regular rate, Normal S1, Normal S2, No murmurs, Gallops Lungs: Other (decrease bs) Abdomen: Normal bowel sounds, Soft, No tenderness, No hepatosplenomegaly, No masses Extremities: No clubbing, No cyanosis, No edema, Normal pulses, No tenderness/ swelling Skin: No rashes, No breakdown, No significant lesion Labs LABS Laboratory Tests Test 08/19/17 05:00 08/19/17 05:05 Sodium Level 150 mmol/L (136-145) Potassium Level 3.3 mmol/L (3.5-5.1) Chloride Level 110 mmol/L (98-107) Carbon Dioxide Level 30 mmol/L (21-32) Anion Gap 10 (6-14) Blood Urea Nitrogen 50 mg/dL (8-26) Creatinine 1.7 mg/dL (0.7-1.3) Estimated GFR (Cockcroft-Gault) 38.2 Glucose Level 126 mg/dL (70-99) Calcium Level 7.6 mg/dL (8.5-10.1) White Blood Count 13.3 x10^3/uL (4.0-11.0) Red Blood Count 3.90 x10^6/uL (4.30-5.70) Hemoglobin 12.2 g/dL (13.0-17.5) Hematocrit 36.1 % (39.0-53.0) Mean Corpuscular Volume 93 fL (79-100) Mean Corpuscular Hemoglobin 31 pg (25-35) Mean Corpuscular Hemoglobin Concent 34 g/dL (31-37) Red Cell Distribution Width 14.9 % (11.5-14.5) Platelet Count 152 x10^3/uL (140-400) Neutrophils (%) (Auto) 81 % (31-73) Lymphocytes (%) (Auto) 13 % (24-48) Monocytes (%) (Auto) 5 % (0-9) Eosinophils (%) (Auto) 0 % (0-3) Basophils (%) (Auto) 0 % (0-3) Neutrophils # (Auto) 10.8 x10^3uL (1.8-7.7) Lymphocytes # (Auto) 1.8 x10^3/uL (1.0-4.8) Monocytes # (Auto) 0.7 x10^3/uL (0.0-1.1) Eosinophils # (Auto) 0.0 x10^3/uL (0.0-0.7) Basophils # (Auto) 0.0 x10^3/uL (0.0-0.2) Review of Systems Review of Systems unable to fully, dyspnea Assessment and Plan Assessmemt and Plan Problems Medical Problems: (1) Community acquired pneumonia Status: Acute (2) Dementia Status: Acute (3) Lactic acidosis Status: Acute (4) Severe sepsis Status: Acute Problems: Comment Review of Relevant I have reviewed the following items emmanuel (where applicable) has been applied. Labs Laboratory Tests Test 08/17/17 10:20 08/17/17 22:40 08/18/17 08:20 08/19/17 05:00 Potassium Level 3.0 mmol/L (3.5-5.1) 3.3 mmol/L (3.5-5.1) 3.5 mmol/L (3.5-5.1) 3.3 mmol/L (3.5-5.1) White Blood Count 11.0 x10^3/uL (4.0-11.0) Red Blood Count 4.14 x10^6/uL (4.30-5.70) Hemoglobin 13.2 g/dL (13.0-17.5) Hematocrit 39.2 % (39.0-53.0) Mean Corpuscular Volume 95 fL (79-100) Mean Corpuscular Hemoglobin 32 pg (25-35) Mean Corpuscular Hemoglobin Concent 34 g/dL (31-37) Red Cell Distribution Width 15.4 % (11.5-14.5) Platelet Count 133 x10^3/uL (140-400) Neutrophils (%) (Auto) 82 % (31-73) Lymphocytes (%) (Auto) 12 % (24-48) Monocytes (%) (Auto) 5 % (0-9) Eosinophils (%) (Auto) 0 % (0-3) Basophils (%) (Auto) 0 % (0-3) Neutrophils # (Auto) 9.0 x10^3uL (1.8-7.7) Lymphocytes # (Auto) 1.4 x10^3/uL (1.0-4.8) Monocytes # (Auto) 0.6 x10^3/uL (0.0-1.1) Eosinophils # (Auto) 0.0 x10^3/uL (0.0-0.7) Basophils # (Auto) 0.0 x10^3/uL (0.0-0.2) Sodium Level 153 mmol/L (136-145) 150 mmol/L (136-145) Chloride Level 115 mmol/L (98-107) 110 mmol/L (98-107) Carbon Dioxide Level 25 mmol/L (21-32) 30 mmol/L (21-32) Anion Gap 13 (6-14) 10 (6-14) Blood Urea Nitrogen 46 mg/dL (8-26) 50 mg/dL (8-26) Creatinine 1.4 mg/dL (0.7-1.3) 1.7 mg/dL (0.7-1.3) Estimated GFR (Cockcroft-Gault) 47.8 38.2 Glucose Level 156 mg/dL (70-99) 126 mg/dL (70-99) Calcium Level 7.6 mg/dL (8.5-10.1) 7.6 mg/dL (8.5-10.1) Test 08/19/17 05:05 White Blood Count 13.3 x10^3/uL (4.0-11.0) Red Blood Count 3.90 x10^6/uL (4.30-5.70) Hemoglobin 12.2 g/dL (13.0-17.5) Hematocrit 36.1 % (39.0-53.0) Mean Corpuscular Volume 93 fL (79-100) Mean Corpuscular Hemoglobin 31 pg (25-35) Mean Corpuscular Hemoglobin Concent 34 g/dL (31-37) Red Cell Distribution Width 14.9 % (11.5-14.5) Platelet Count 152 x10^3/uL (140-400) Neutrophils (%) (Auto) 81 % (31-73) Lymphocytes (%) (Auto) 13 % (24-48) Monocytes (%) (Auto) 5 % (0-9) Eosinophils (%) (Auto) 0 % (0-3) Basophils (%) (Auto) 0 % (0-3) Neutrophils # (Auto) 10.8 x10^3uL (1.8-7.7) Lymphocytes # (Auto) 1.8 x10^3/uL (1.0-4.8) Monocytes # (Auto) 0.7 x10^3/uL (0.0-1.1) Eosinophils # (Auto) 0.0 x10^3/uL (0.0-0.7) Basophils # (Auto) 0.0 x10^3/uL (0.0-0.2) Laboratory Tests Test 08/19/17 05:00 08/19/17 05:05 Sodium Level 150 mmol/L (136-145) Potassium Level 3.3 mmol/L (3.5-5.1) Chloride Level 110 mmol/L (98-107) Carbon Dioxide Level 30 mmol/L (21-32) Anion Gap 10 (6-14) Blood Urea Nitrogen 50 mg/dL (8-26) Creatinine 1.7 mg/dL (0.7-1.3) Estimated GFR (Cockcroft-Gault) 38.2 Glucose Level 126 mg/dL (70-99) Calcium Level 7.6 mg/dL (8.5-10.1) White Blood Count 13.3 x10^3/uL (4.0-11.0) Red Blood Count 3.90 x10^6/uL (4.30-5.70) Hemoglobin 12.2 g/dL (13.0-17.5) Hematocrit 36.1 % (39.0-53.0) Mean Corpuscular Volume 93 fL (79-100) Mean Corpuscular Hemoglobin 31 pg (25-35) Mean Corpuscular Hemoglobin Concent 34 g/dL (31-37) Red Cell Distribution Width 14.9 % (11.5-14.5) Platelet Count 152 x10^3/uL (140-400) Neutrophils (%) (Auto) 81 % (31-73) Lymphocytes (%) (Auto) 13 % (24-48) Monocytes (%) (Auto) 5 % (0-9) Eosinophils (%) (Auto) 0 % (0-3) Basophils (%) (Auto) 0 % (0-3) Neutrophils # (Auto) 10.8 x10^3uL (1.8-7.7) Lymphocytes # (Auto) 1.8 x10^3/uL (1.0-4.8) Monocytes # (Auto) 0.7 x10^3/uL (0.0-1.1) Eosinophils # (Auto) 0.0 x10^3/uL (0.0-0.7) Basophils # (Auto) 0.0 x10^3/uL (0.0-0.2) Microbiology 08/12/17 Blood Culture - Final, Complete NO GROWTH AFTER 5 DAYS Medications Current Medications Sodium Chloride 1,000 ml @ 2,040 mls/hr Q30M IV Last administered on 18:30; Start 08/12/17 at 18:21; Stop 08/12/17 at 19:21; Status DC Levofloxacin/ Dextrose (Levaquin Per Pharmacy) 1 each PRN DAILY PRN MC SEE COMMENTS; Start 08/12/17 at 18:30; Stop 08/14/17 at 08:56; Status DC Calcium Gluconate (Calcium Gluconate) 2,000 mg 1X ONCE IVP Last administered on 08/12/17 19:12; Start 08/12/17 at 18:30; Stop 08/12/17 at 18:38; Status DC Docusate Sodium (Colace) 200 mg DAILY PO Last administered on 08/15/17 13:43 ; Start 08/13/17 at 09:00; Stop 08/16/17 at 14:07; Status DC Dutasteride (Avodart) 0.5 mg DAILY PO Last administered on 08/19/17 08:21; Start 08/13/17 at 09:00 Lamotrigine (LaMICtal) 200 mg DAILY PO Last administered on 08/19/17 08:21; Start 08/13/17 at 09:00 Levothyroxine Sodium (Synthroid) 50 mcg DAILY PO Last administered on 08:21; Start 08/13/17 at 09:00 Vitamin D (Vitamin D3) 2,000 unit DAILY PO Last administered on 08/15/17 13: 43; Start 08/13/17 at 09:00; Stop 08/16/17 at 14:07; Status DC Calcium/Vitamin D (Oscal D 250mg/ 125uts) 1 tab [id number] PO Last administered on 08/15/17 13:43; Start 08/13/17 at 08:00; Stop 08/16/17 at 14: 07; Status DC Albuterol/ Ipratropium (Duoneb) 3 ml RTQID NEB ; Start 08/12/17 at 20:00; Status Cancel Guaifenesin (Robitussin Dm) 10 ml PRN Q6HRS PRN PO COUGH; Start 08/12/17 at 18: 45 Levofloxacin/ Dextrose 150 ml @ As Directed STK-MED ONCE IV ; Start 08/12/17 at 18:32; Stop 08/12/17 at 18:33; Status DC Levofloxacin/ Dextrose 150 ml @ 100 mls/hr ONCE ONCE IV Last administered on 08/12/17 19:29; Start 08/12/17 at 18:45; Stop 08/12/17 at 20:14; Status DC Enoxaparin Sodium (Lovenox 40mg Syringe) 40 mg Q24H SQ Last administered on 19:46; Start 08/12/17 at 19:00; Stop 08/15/17 at 12:39; Status DC Albuterol/ Ipratropium (Duoneb) 3 ml RTQID NEB Last administered on 08/19/17 07:39; Start 08/12/17 at 20:00 Benzonatate (Tessalon Perle) 100 mg [id number] PO Last administered on 08/16/17 08:54; Start 08/12/17 at 21:00; Stop 08/16/17 at 14:07; Status DC Levofloxacin/ Dextrose 50 ml @ 50 mls/hr Q24H IV ; Start 08/13/17 at 19:30; Stop 08/13/17 at 19:30; Status DC Sodium Chloride 1,000 ml @ 100 mls/hr Q10H IV Last administered on 08/13/17 07:44; Start 08/12/17 at 19:41; Stop 08/13/17 at 19:40; Status DC Norepinephrine Bitartrate 250 ml @ 0 mls/hr CONT PRN IV SEE I/O RECORD Last administered on 08/14/17 19:46; Start 08/12/17 at 21:00 Vancomycin HCl 250 ml @ 250 mls/hr 1X ONCE IV Last administered on 08/12/17 21:00; Start 08/12/17 at 21:00; Stop 08/12/17 at 21:19; Status DC Vancomycin HCl 1.75 gm/Dextrose 500 ml @ 250 mls/hr 1X ONCE IV Last administered on 08/12/17 21:18; Start 08/12/17 at 22:00; Stop 08/12/17 at 23:59 ; Status DC Vancomycin HCl (Vanco Per Pharmacy) 1 each PRN DAILY PRN MC SEE COMMENTS Last administered on 08/14/17 23:02; Start 08/12/17 at 21:30; Stop 08/15/17 at 08: 44; Status DC Piperacillin Sod/ Tazobactam Sod 3.375 gm/Dextrose 50 ml @ 100 mls/hr Q6HRS IV ; Start 08/13/17 at 08:30; Status Cancel Vancomycin HCl (Vanco Per Pharmacy) 1 each PRN DAILY PRN MC SEE COMMENTS; Start 08/13/17 at 08:15; Stop 08/13/17 at 08:19; Status DC Vancomycin HCl 1 gm/Dextrose 250 ml @ 250 mls/hr Q24H IV Last administered on 08/14/17 21:21; Start 08/13/17 at 21:00; Stop 08/15/17 at 08:43; Status DC Vancomycin HCl 1 each 1X ONCE MC ; Start 08/14/17 at 20:30; Stop 08/14/17 at 20 :31; Status DC Piperacillin Sod/ Tazobactam Sod (Zosyn) 3.375 gm Q6HRS IVP Last administered on 08/15/17 05:28; Start 08/13/17 at 08:45; Stop 08/15/17 at 08:46; Status DC Levofloxacin/ Dextrose 150 ml @ 100 mls/hr Q48H IV Last administered on 23:05; Start 08/14/17 at 19:00 Diphenhydramine HCl (Benadryl) 25 mg PRN Q6HRS PRN PO ITCHING Last administered on 08/13/17 19:57; Start 08/13/17 at 19:45 Zolpidem Tartrate (Ambien) 5 mg 1X ONCE PO ; Start 08/13/17 at 21:30; Stop 08/13/17 at 21:31; Status DC Sodium Chloride 1,000 ml @ 100 mls/hr Q10H IV Last administered on 08/14/17 18:15; Start 08/14/17 at 08:00; Stop 08/15/17 at 19:03; Status DC Lactobacillus Rhamnosus (Culturelle) 1 cap BID PO Last administered on 08:20; Start 08/14/17 at 21:00 Sodium Chloride 500 ml @ 500 mls/hr 1X ONCE IV Last administered on 19:48; Start 08/14/17 at 19:00; Stop 08/14/17 at 19:59; Status DC Lorazepam (Ativan) 1 mg PRN Q2HRS PRN PO ANXIETY / AGITATION Last administered on 08/15/17 13:42; Start 08/14/17 at 19:30 Furosemide (Lasix) 20 mg 1X ONCE IVP Last administered on 08/15/17 08:30; Start 08/15/17 at 08:30; Stop 08/15/17 at 08:31; Status DC Enoxaparin Sodium (Lovenox 30mg Syringe) 30 mg Q24H SQ Last administered on 17:39; Start 08/15/17 at 17:00 Furosemide (Lasix) 40 mg DAILY IVP Last administered on 08/18/17 08:31; Start 08/15/17 at 15:00; Stop 08/18/17 at 09:00; Status DC Haloperidol Lactate (Haldol) 5 mg PRN Q6HRS PRN IVP AGITATION Last administered on 08/19/17 01:01; Start 08/15/17 at 18:15 Diphenhydramine HCl (Benadryl) 25 mg PRN Q6HRS PRN IVP ITCHING Last administered on 08/16/17 13:51; Start 08/15/17 at 19:15 Dextrose 500 ml @ 500 mls/hr 1X ONCE IV Last administered on 08/16/17 11:00 ; Start 08/16/17 at 11:00; Stop 08/16/17 at 11:59; Status DC Potassium Chloride 40 meq/ Dextrose 1,020 ml @ 75 mls/hr 1X ONCE IV Last administered on 08/16/17 12:51; Start 08/16/17 at 11:00; Stop 08/17/17 at 00 :35; Status DC Docusate Sodium (Colace Solution) 100 mg DAILY PO Last administered on 08:31; Start 08/17/17 at 09:00 Piperacillin Sod/ Tazobactam Sod 2.25 gm/Dextrose 50 ml @ 100 mls/hr Q6HRS IV ; Start 08/16/17 at 18:00; Status UNV Piperacillin Sod/ Tazobactam Sod (Zosyn) 2.25 gm Q6HRS IVP Last administered on 08/19/17 06:21; Start 08/16/17 at 18:00 Morphine Sulfate 2 mg PRN Q2HR PRN IV PAIN; Start 08/16/17 at 17:45 Morphine Sulfate 4 mg PRN Q2HR PRN IV PAIN Last administered on 08/19/17 08: 20; Start 08/16/17 at 17:45 Morphine Sulfate 6 mg PRN Q2HR PRN IV PAIN; Start 08/16/17 at 17:45 Potassium Chloride (KCl Oral Soln) 40 meq 1X ONCE PEG Last administered on 06:26; Start 08/17/17 at 07:00; Stop 08/17/17 at 07:01; Status DC Potassium Chloride (KCl Oral Soln) 20 meq BID PEG ; Start 08/17/17 at 21:00; Status Cancel Potassium Chloride (KCl Oral Soln) 40 meq 1X ONCE PEG Last administered on 16:30; Start 08/17/17 at 16:00; Stop 08/17/17 at 16:01; Status DC Potassium Chloride (KCl Oral Soln) 20 meq BID PEG Last administered on 08:21; Start 08/18/17 at 09:00 Dextrose 1,000 ml @ 75 mls/hr [id number] IV Last administered on 08/19/17 00:59 ; Start 08/18/17 at 11:30 Active Scripts Active Reported Avodart (Dutasteride) 0.5 Mg Capsule 1 Cap PO DAILY Docusate Sodium 100 Mg Capsule 2 Cap PO DAILY Caltrate 600 + D Tablet (Calcium Carbonate/Vitamin D3) 1 Each Tablet 1 Each PO Vitamin D (Cholecalciferol (Vitamin D3)) 2,000 Unit Capsule 1 Cap PO DAILY Carvedilol 6.25 Mg Tablet 0.5 Tab PO DAILY Lamictal (Lamotrigine) 100 Mg Tablet 2 Tab PO DAILY Levothyroxine Sodium 50 Mcg Tablet 1 Tab PO DAILY Vitals/I & O Vital Sign - Last 24 Hours 08/18/17 08/18/17 08/18/17 08/18/17 10:00 11:00 12:00 12:00 Temp 98.5 98.5 Pulse 69 70 70 Resp 32 29 28 B/P (MAP) 93/47 (62) 97/47 (64) 101/50 (67) Pulse Ox 96 96 96 O2 Delivery BiPAP/CPAP BiPAP/CPAP BiPAP/CPAP O2 Flow Rate 15.0 08/18/17 08/18/17 08/18/17 08/18/17 12:00 12:26 13:00 14:00 Pulse 72 70 Resp 32 34 B/P (MAP) 107/50 (69) 91/58 (69) Pulse Ox 96 98 96 O2 Delivery Bi-pap BiPAP/CPAP BiPAP/CPAP BiPAP/CPAP O2 Flow Rate 15.0 08/18/17 08/18/17 08/18/17 08/18/17 15:00 16:00 16:00 16:32 Temp 98.8 98.8 Pulse 68 72 Resp 28 28 B/P (MAP) 102/47 (65) 106/57 (73) Pulse Ox 96 98 97 O2 Delivery BiPAP/CPAP BiPAP/CPAP Bi-pap BiPAP/CPAP O2 Flow Rate 15.0 08/18/17 08/18/17 08/18/17 08/18/17 16:35 17:00 18:00 19:00 Pulse 70 69 75 Resp 28 B/P (MAP) 107/52 (70) 103/46 (65) 110/50 (70) Pulse Ox 98 97 97 O2 Delivery BiPAP/CPAP BiPAP/CPAP BiPAP/CPAP O2 Flow Rate 15.0 08/18/17 08/18/17 08/18/17 08/18/17 19:45 20:00 20:00 20:00 Temp 97.7 97.7 Pulse 75 Resp 28 B/P (MAP) 107/46 (66) Pulse Ox 97 97 O2 Delivery BiPAP/CPAP BiPAP/CPAP Bi-pap O2 Flow Rate 15.0 08/18/17 08/18/17 08/18/17 08/18/17 21:00 22:00 23:00 23:26 Pulse 74 69 68 Resp B/P (MAP) 102/45 (64) 102/51 (68) 103/58 (73) Pulse Ox 97 97 97 97 O2 Delivery BiPAP/CPAP BiPAP/CPAP BiPAP/CPAP BiPAP/CPAP 08/19/17 08/19/17 08/19/17 08/19/17 00:00 00:00 00:55 01:00 Temp 98.8 98.8 Pulse 68 69 Resp 27 B/P (MAP) 99/47 (64) 97/42 (60) Pulse Ox 96 98 94 O2 Delivery Bi-pap BiPAP/CPAP BiPAP/CPAP BiPAP/CPAP 08/19/17 08/19/17 08/19/17 08/19/17 02:00 02:57 03:00 04:00 Temp 98.3 98.3 Pulse 68 70 76 Resp B/P (MAP) 103/58 (73) 96/47 (63) 115/44 (67) Pulse Ox 97 95 95 94 O2 Delivery BiPAP/CPAP BiPAP/CPAP BiPAP/CPAP BiPAP/CPAP 08/19/17 08/19/17 08/19/17 08/19/17 04:00 05:00 05:20 06:00 Pulse 72 70 Resp 28 30 B/P (MAP) 120/54 (76) 115/58 (77) Pulse Ox 97 94 94 O2 Delivery Bi-pap BiPAP/CPAP BiPAP/CPAP BiPAP/CPAP 08/19/17 08/19/17 08/19/17 08/19/17 07:00 07:39 08:00 08:00 Temp 98.5 98.5 Pulse 72 68 Resp 30 21 B/P (MAP) 115/53 (73) 112/53 (72) Pulse Ox 93 96 96 O2 Delivery BiPAP/CPAP BiPAP/CPAP Bi-pap BiPAP/CPAP 08/19/17 08/19/17 08:20 09:00 Pulse 67 Resp 34 20 B/P (MAP) 112/52 (72) Pulse Ox 93 97 O2 Delivery BiPAP/CPAP BiPAP/CPAP O2 Flow Rate 15.0 Intake and Output 08/18/17 08/18/17 08/19/17 15:00 23:00 07:00 Intake Total 625 ml 860 ml 2009 ml Output Total 950 ml 290 ml 255 ml Balance -325 ml 570 ml 1754 ml RODNEY ALAS MD Aug 19, 2017 09:37
--- NOTE | 2017-08-19 10:50 | PDOC ---
PULMONARY PROGRESS NOTES Subjective On BIPAP/ 70% FIO2 comfortable Vitals Vital Signs Date Time Temp Pulse Resp B/P (MAP) Pulse Ox O2 Delivery O2 Flow Rate FiO2 08/19/17 09:00 67 20 112/52 (72) 97 BiPAP/CPAP 08/19/17 08:20 15.0 08/19/17 07:00 98.5 98.5 General: Alert, No acute distress Lungs: Other (decrease bs) Cardiovascular: S1, S2 Abdomen: Soft, Non-tender Neuro Exam: Alert Extremities: Other (1+edema) Skin: Warm Labs Laboratory Tests Test 08/17/17 22:40 08/18/17 08:20 08/19/17 05:00 08/19/17 05:05 Potassium Level 3.3 mmol/L (3.5-5.1) 3.5 mmol/L (3.5-5.1) 3.3 mmol/L (3.5-5.1) White Blood Count 11.0 x10^3/uL (4.0-11.0) 13.3 x10^3/uL (4.0-11.0) Red Blood Count 4.14 x10^6/uL (4.30-5.70) 3.90 x10^6/uL (4.30-5.70) Hemoglobin 13.2 g/dL (13.0-17.5) 12.2 g/dL (13.0-17.5) Hematocrit 39.2 % (39.0-53.0) 36.1 % (39.0-53.0) Mean Corpuscular Volume 95 fL (79-100) 93 fL (79-100) Mean Corpuscular Hemoglobin 32 pg (25-35) 31 pg (25-35) Mean Corpuscular Hemoglobin Concent 34 g/dL (31-37) 34 g/dL (31-37) Red Cell Distribution Width 15.4 % (11.5-14.5) 14.9 % (11.5-14.5) Platelet Count 133 x10^3/uL (140-400) 152 x10^3/uL (140-400) Neutrophils (%) (Auto) 82 % (31-73) 81 % (31-73) Lymphocytes (%) (Auto) 12 % (24-48) 13 % (24-48) Monocytes (%) (Auto) 5 % (0-9) 5 % (0-9) Eosinophils (%) (Auto) 0 % (0-3) 0 % (0-3) Basophils (%) (Auto) 0 % (0-3) 0 % (0-3) Neutrophils # (Auto) 9.0 x10^3uL (1.8-7.7) 10.8 x10^3uL (1.8-7.7) Lymphocytes # (Auto) 1.4 x10^3/uL (1.0-4.8) 1.8 x10^3/uL (1.0-4.8) Monocytes # (Auto) 0.6 x10^3/uL (0.0-1.1) 0.7 x10^3/uL (0.0-1.1) Eosinophils # (Auto) 0.0 x10^3/uL (0.0-0.7) 0.0 x10^3/uL (0.0-0.7) Basophils # (Auto) 0.0 x10^3/uL (0.0-0.2) 0.0 x10^3/uL (0.0-0.2) Sodium Level 153 mmol/L (136-145) 150 mmol/L (136-145) Chloride Level 115 mmol/L (98-107) 110 mmol/L (98-107) Carbon Dioxide Level 25 mmol/L (21-32) 30 mmol/L (21-32) Anion Gap 13 (6-14) 10 (6-14) Blood Urea Nitrogen 46 mg/dL (8-26) 50 mg/dL (8-26) Creatinine 1.4 mg/dL (0.7-1.3) 1.7 mg/dL (0.7-1.3) Estimated GFR (Cockcroft-Gault) 47.8 38.2 Glucose Level 156 mg/dL (70-99) 126 mg/dL (70-99) Calcium Level 7.6 mg/dL (8.5-10.1) 7.6 mg/dL (8.5-10.1) Laboratory Tests Test 08/19/17 05:00 08/19/17 05:05 Sodium Level 150 mmol/L (136-145) Potassium Level 3.3 mmol/L (3.5-5.1) Chloride Level 110 mmol/L (98-107) Carbon Dioxide Level 30 mmol/L (21-32) Anion Gap 10 (6-14) Blood Urea Nitrogen 50 mg/dL (8-26) Creatinine 1.7 mg/dL (0.7-1.3) Estimated GFR (Cockcroft-Gault) 38.2 Glucose Level 126 mg/dL (70-99) Calcium Level 7.6 mg/dL (8.5-10.1) White Blood Count 13.3 x10^3/uL (4.0-11.0) Red Blood Count 3.90 x10^6/uL (4.30-5.70) Hemoglobin 12.2 g/dL (13.0-17.5) Hematocrit 36.1 % (39.0-53.0) Mean Corpuscular Volume 93 fL (79-100) Mean Corpuscular Hemoglobin 31 pg (25-35) Mean Corpuscular Hemoglobin Concent 34 g/dL (31-37) Red Cell Distribution Width 14.9 % (11.5-14.5) Platelet Count 152 x10^3/uL (140-400) Neutrophils (%) (Auto) 81 % (31-73) Lymphocytes (%) (Auto) 13 % (24-48) Monocytes (%) (Auto) 5 % (0-9) Eosinophils (%) (Auto) 0 % (0-3) Basophils (%) (Auto) 0 % (0-3) Neutrophils # (Auto) 10.8 x10^3uL (1.8-7.7) Lymphocytes # (Auto) 1.8 x10^3/uL (1.0-4.8) Monocytes # (Auto) 0.7 x10^3/uL (0.0-1.1) Eosinophils # (Auto) 0.0 x10^3/uL (0.0-0.7) Basophils # (Auto) 0.0 x10^3/uL (0.0-0.2) Medications Active Scripts Medications Dose Route/Sig Max Daily Dose Days Date Category Avodart (Dutasteride) 0.5 Mg Capsule 1 Cap PO DAILY 08/12/17 Reported Docusate Sodium 100 Mg Capsule 2 Cap PO DAILY 08/12/17 Reported Caltrate 600 + D Tablet (Calcium Carbonate/Vitamin D3) 1 Each Tablet 1 Each PO 08/12/17 Reported Vitamin D (Cholecalciferol (Vitamin D3)) 2,000 Unit Capsule 1 Cap PO DAILY 08/12/17 Reported Carvedilol 6.25 Mg Tablet 0.5 Tab PO DAILY 08/12/17 Reported Lamictal (Lamotrigine) 100 Mg Tablet 2 Tab PO DAILY 08/12/17 Reported Levothyroxine Sodium 50 Mcg Tablet 1 Tab PO DAILY 08/12/17 Reported Comments 08/18 AGATHA INFILTRATES / IMPROVED SINCE 08/15 Impression . 1. Acute resp failure POA/Abnormal x-ray compatible with pneumonia, suspect gram negative.ARDS/ ? component of CHF 2. Septic shock, improved, off pressors 3. Mild protein malnutrition, present upon admission. 4. Tobacco abuse, in remission. 5. Hypothyroidism. 6. Dementia. 7. Acute toxic encephalopathy, present upon admission. improved 8. Hypernatremia 9. Hypokalemia . Plan . CONTINUE BIPAP/ 70%FIO2 PRN DIURESIS SPOKE WITH DAUGHTERS AT BEDSIDE, WANTS TO PROCEED WITH COMFORT CARE IN AM/ I CONCUR IV LASIX PRN ANITBX PT IS DNR/DNI JARRED MCGOVERN MD Aug 19, 2017 10:50
--- NOTE | 2017-08-19 10:59 | PDOC ---
Renal-Progress Notes Subjective Notes Notes ON BIPAP History of Present Illness Hx of present illness NOT ANY BETTER Vitals Vitals Vital Signs Date Time Temp Pulse Resp B/P (MAP) Pulse Ox O2 Delivery O2 Flow Rate FiO2 08/19/17 09:00 67 20 112/52 (72) 97 BiPAP/CPAP 08/19/17 08:20 15.0 08/19/17 07:00 98.5 98.5 Weight Weight [ ] I.O. Intake and Output Intake and Output 08/19/17 07:00 Intake Total 3494 ml Output Total 1495 ml Balance 1999 ml Intake Oral 0 ml IV Total 1318 ml Tube Feeding 1926 ml Other 250 ml Output Urine Total 1495 ml Labs Labs Laboratory Tests Test 08/19/17 05:00 08/19/17 05:05 Sodium Level 150 mmol/L (136-145) Potassium Level 3.3 mmol/L (3.5-5.1) Chloride Level 110 mmol/L (98-107) Carbon Dioxide Level 30 mmol/L (21-32) Anion Gap 10 (6-14) Blood Urea Nitrogen 50 mg/dL (8-26) Creatinine 1.7 mg/dL (0.7-1.3) Estimated GFR (Cockcroft-Gault) 38.2 Glucose Level 126 mg/dL (70-99) Calcium Level 7.6 mg/dL (8.5-10.1) White Blood Count 13.3 x10^3/uL (4.0-11.0) Red Blood Count 3.90 x10^6/uL (4.30-5.70) Hemoglobin 12.2 g/dL (13.0-17.5) Hematocrit 36.1 % (39.0-53.0) Mean Corpuscular Volume 93 fL (79-100) Mean Corpuscular Hemoglobin 31 pg (25-35) Mean Corpuscular Hemoglobin Concent 34 g/dL (31-37) Red Cell Distribution Width 14.9 % (11.5-14.5) Platelet Count 152 x10^3/uL (140-400) Neutrophils (%) (Auto) 81 % (31-73) Lymphocytes (%) (Auto) 13 % (24-48) Monocytes (%) (Auto) 5 % (0-9) Eosinophils (%) (Auto) 0 % (0-3) Basophils (%) (Auto) 0 % (0-3) Neutrophils # (Auto) 10.8 x10^3uL (1.8-7.7) Lymphocytes # (Auto) 1.8 x10^3/uL (1.0-4.8) Monocytes # (Auto) 0.7 x10^3/uL (0.0-1.1) Eosinophils # (Auto) 0.0 x10^3/uL (0.0-0.7) Basophils # (Auto) 0.0 x10^3/uL (0.0-0.2) Micro Micro Microbiology 08/12/17 Blood Culture - Final, Complete NO GROWTH AFTER 5 DAYS Review of Systems Constitutional: yes: other (UNABLE TO OBTAIN) Physical Exam General Appearance: mild distress Skin: warm Respiratory: decreased breath sounds Heart: S1S2 Abdomen: soft, bowel sounds present Genitourinary: bladder flat Extremities: pulses present, no edema, atrophy Neurology: alert Assessment Assessment IMP MANNY BETTER WITH CR OF 1.7 SEPSIS HYPERNATREMIA LEUCOCYTOSIS-BETTER PLAN BIPAP ANTIBIOTICS CONT TF AND WATER FLUSHES COMFORT CARE AND WITHDRAWAL PLANS NOTED WILL SIGN OFF THOMAS CRESPO MD Aug 19, 2017 10:59
[2017-08-19] MEDS: ENOXAPARIN 30 MG/0.3 ML SYRINGE. SQ SCH (19:09)
[2017-08-20] VITALS (9 sets, daily range): BP systolic 79–100; BP diastolic 41–54
[2017-08-20] MEDS: MORPHINE SULFATE 4 MG/ML DISP.SYRIN. IV PRN ×2 (01:45→08:41)
[2017-08-20] MEDS: IV DEXTROSE 5% 1,000 ML IV SCH ×2 (03:30→06:01)
[2017-08-20] MEDS: PIPERACILLIN/TAZO IV Push 2.25 GM VIAL. IVP SCH ×2 (06:02)
[2017-08-20 06:11] LABS: CREATININE 1.6 mg/dL (0.7-1.3); POTASSIUM 4.1 mmol/L (3.5-5.1)
[2017-08-20 06:41] LABS: BASO % 0 % (0-3); EOS % 1 % (0-3); HEMATOCRIT 35.1 % (39.0-53.0); LYMPH # 1.6 x10^3/uL (1.0-4.8); LYMPH % 12 % (24-48); MEAN CORPUSCULAR HEMOGLOBIN 32 pg (25-35); MEAN CORPUSCULAR HGB CONC 34 g/dL (31-37); MEAN CORPUSCULAR VOLUME 93 fL (79-100); MONO % 6 % (0-9); NEUT % 81 % (31-73); PLATELET COUNT 130 x10^3/uL (140-400); RED BLOOD COUNT 3.79 x10^6/uL (4.30-5.70); RED CELL DISTRIBUTION WIDTH 15.6 % (11.5-14.5); WHITE BLOOD COUNT 14.3 x10^3/uL (4.0-11.0)
[2017-08-20] MEDS: MORPHINE SULFATE 10 MG/ML VIAL. IV PRN ×2 (08:40→14:30)
--- NOTE | 2017-08-20 08:42 | PDOC ---
PROGRESS NOTES Chief Complaint Chief Complaint 1. pneumonia, hypoxic respiratory faiulre, had failed to improved on bipap 2. Severe sepsis with HYPOTENSION, infectious 3. Dementia, chronic encephalopathy 4. Hypocalcemia 5. 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 hypothyroidism 7. Elevated lactate was from severe sepsis 8, hypokalemia History of Present Illness History of Present Illness in ICU care withdrawn this AM 0830, meds changed to palliaitive only mult family in room, RN and palliative team here, respirations seemed to have nearly ceased at this time, will follow today Vitals Vitals Vital Signs Date Time Temp Pulse Resp B/P (MAP) Pulse Ox O2 Delivery O2 Flow Rate FiO2 08/20/17 06:00 88 26 79/45 (56) 98 BiPAP/CPAP 08/20/17 04:00 15.0 08/20/17 04:00 98.7 98.7 Physical Exam General: No acute distress, Other (somnolnent) Heart: Regular rate Lungs: Other (marked decreased rate) Extremities: No clubbing, No cyanosis Skin: No rashes, No breakdown Labs LABS Laboratory Tests Test 08/20/17 05:20 White Blood Count 14.3 x10^3/uL (4.0-11.0) Red Blood Count 3.79 x10^6/uL (4.30-5.70) Hemoglobin 12.0 g/dL (13.0-17.5) Hematocrit 35.1 % (39.0-53.0) Mean Corpuscular Volume 93 fL (79-100) Mean Corpuscular Hemoglobin 32 pg (25-35) Mean Corpuscular Hemoglobin Concent 34 g/dL (31-37) Red Cell Distribution Width 15.6 % (11.5-14.5) Platelet Count 130 x10^3/uL (140-400) Neutrophils (%) (Auto) 81 % (31-73) Lymphocytes (%) (Auto) 12 % (24-48) Monocytes (%) (Auto) 6 % (0-9) Eosinophils (%) (Auto) 1 % (0-3) Basophils (%) (Auto) 0 % (0-3) Neutrophils # (Auto) 11.6 x10^3uL (1.8-7.7) Lymphocytes # (Auto) 1.6 x10^3/uL (1.0-4.8) Monocytes # (Auto) 0.9 x10^3/uL (0.0-1.1) Eosinophils # (Auto) 0.1 x10^3/uL (0.0-0.7) Basophils # (Auto) 0.0 x10^3/uL (0.0-0.2) Sodium Level 144 mmol/L (136-145) Potassium Level 4.1 mmol/L (3.5-5.1) Chloride Level 107 mmol/L (98-107) Carbon Dioxide Level 30 mmol/L (21-32) Anion Gap 7 (6-14) Blood Urea Nitrogen 48 mg/dL (8-26) Creatinine 1.6 mg/dL (0.7-1.3) Estimated GFR (Cockcroft-Gault) 41.0 Glucose Level 136 mg/dL (70-99) Calcium Level 7.0 mg/dL (8.5-10.1) Assessment and Plan Assessmemt and Plan Problems Medical Problems: (1) Community acquired pneumonia Status: Acute (2) Dementia Status: Acute (3) Lactic acidosis Status: Acute (4) Severe sepsis Status: Acute Problems: Comment Review of Relevant I have reviewed the following items emmanuel (where applicable) has been applied. Labs Laboratory Tests Test 08/19/17 05:00 08/19/17 05:05 08/20/17 05:20 Sodium Level 150 mmol/L (136-145) 144 mmol/L (136-145) Potassium Level 3.3 mmol/L (3.5-5.1) 4.1 mmol/L (3.5-5.1) Chloride Level 110 mmol/L (98-107) 107 mmol/L (98-107) Carbon Dioxide Level 30 mmol/L (21-32) 30 mmol/L (21-32) Anion Gap 10 (6-14) 7 (6-14) Blood Urea Nitrogen 50 mg/dL (8-26) 48 mg/dL (8-26) Creatinine 1.7 mg/dL (0.7-1.3) 1.6 mg/dL (0.7-1.3) Estimated GFR (Cockcroft-Gault) 38.2 41.0 Glucose Level 126 mg/dL (70-99) 136 mg/dL (70-99) Calcium Level 7.6 mg/dL (8.5-10.1) 7.0 mg/dL (8.5-10.1) White Blood Count 13.3 x10^3/uL (4.0-11.0) 14.3 x10^3/uL (4.0-11.0) Red Blood Count 3.90 x10^6/uL (4.30-5.70) 3.79 x10^6/uL (4.30-5.70) Hemoglobin 12.2 g/dL (13.0-17.5) 12.0 g/dL (13.0-17.5) Hematocrit 36.1 % (39.0-53.0) 35.1 % (39.0-53.0) Mean Corpuscular Volume 93 fL (79-100) 93 fL (79-100) Mean Corpuscular Hemoglobin 31 pg (25-35) 32 pg (25-35) Mean Corpuscular Hemoglobin Concent 34 g/dL (31-37) 34 g/dL (31-37) Red Cell Distribution Width 14.9 % (11.5-14.5) 15.6 % (11.5-14.5) Platelet Count 152 x10^3/uL (140-400) 130 x10^3/uL (140-400) Neutrophils (%) (Auto) 81 % (31-73) 81 % (31-73) Lymphocytes (%) (Auto) 13 % (24-48) 12 % (24-48) Monocytes (%) (Auto) 5 % (0-9) 6 % (0-9) Eosinophils (%) (Auto) 0 % (0-3) 1 % (0-3) Basophils (%) (Auto) 0 % (0-3) 0 % (0-3) Neutrophils # (Auto) 10.8 x10^3uL (1.8-7.7) 11.6 x10^3uL (1.8-7.7) Lymphocytes # (Auto) 1.8 x10^3/uL (1.0-4.8) 1.6 x10^3/uL (1.0-4.8) Monocytes # (Auto) 0.7 x10^3/uL (0.0-1.1) 0.9 x10^3/uL (0.0-1.1) Eosinophils # (Auto) 0.0 x10^3/uL (0.0-0.7) 0.1 x10^3/uL (0.0-0.7) Basophils # (Auto) 0.0 x10^3/uL (0.0-0.2) 0.0 x10^3/uL (0.0-0.2) Laboratory Tests Test 08/20/17 05:20 White Blood Count 14.3 x10^3/uL (4.0-11.0) Red Blood Count 3.79 x10^6/uL (4.30-5.70) Hemoglobin 12.0 g/dL (13.0-17.5) Hematocrit 35.1 % (39.0-53.0) Mean Corpuscular Volume 93 fL (79-100) Mean Corpuscular Hemoglobin 32 pg (25-35) Mean Corpuscular Hemoglobin Concent 34 g/dL (31-37) Red Cell Distribution Width 15.6 % (11.5-14.5) Platelet Count 130 x10^3/uL (140-400) Neutrophils (%) (Auto) 81 % (31-73) Lymphocytes (%) (Auto) 12 % (24-48) Monocytes (%) (Auto) 6 % (0-9) Eosinophils (%) (Auto) 1 % (0-3) Basophils (%) (Auto) 0 % (0-3) Neutrophils # (Auto) 11.6 x10^3uL (1.8-7.7) Lymphocytes # (Auto) 1.6 x10^3/uL (1.0-4.8) Monocytes # (Auto) 0.9 x10^3/uL (0.0-1.1) Eosinophils # (Auto) 0.1 x10^3/uL (0.0-0.7) Basophils # (Auto) 0.0 x10^3/uL (0.0-0.2) Sodium Level 144 mmol/L (136-145) Potassium Level 4.1 mmol/L (3.5-5.1) Chloride Level 107 mmol/L (98-107) Carbon Dioxide Level 30 mmol/L (21-32) Anion Gap 7 (6-14) Blood Urea Nitrogen 48 mg/dL (8-26) Creatinine 1.6 mg/dL (0.7-1.3) Estimated GFR (Cockcroft-Gault) 41.0 Glucose Level 136 mg/dL (70-99) Calcium Level 7.0 mg/dL (8.5-10.1) Microbiology 08/12/17 Blood Culture - Final, Complete NO GROWTH AFTER 5 DAYS Medications Current Medications Sodium Chloride 1,000 ml @ 2,040 mls/hr Q30M IV Last administered on 18:30; Start 08/12/17 at 18:21; Stop 08/12/17 at 19:21; Status DC Levofloxacin/ Dextrose (Levaquin Per Pharmacy) 1 each PRN DAILY PRN MC SEE COMMENTS; Start 08/12/17 at 18:30; Stop 08/14/17 at 08:56; Status DC Calcium Gluconate (Calcium Gluconate) 2,000 mg 1X ONCE IVP Last administered on 08/12/17 19:12; Start 08/12/17 at 18:30; Stop 08/12/17 at 18:38; Status DC Docusate Sodium (Colace) 200 mg DAILY PO Last administered on 08/15/17 13:43 ; Start 08/13/17 at 09:00; Stop 08/16/17 at 14:07; Status DC Dutasteride (Avodart) 0.5 mg DAILY PO Last administered on 08/19/17 08:21; Start 08/13/17 at 09:00 Lamotrigine (LaMICtal) 200 mg DAILY PO Last administered on 08/19/17 08:21; Start 08/13/17 at 09:00 Levothyroxine Sodium (Synthroid) 50 mcg DAILY PO Last administered on 08:21; Start 08/13/17 at 09:00 Vitamin D (Vitamin D3) 2,000 unit DAILY PO Last administered on 08/15/17 13: 43; Start 08/13/17 at 09:00; Stop 08/16/17 at 14:07; Status DC Calcium/Vitamin D (Oscal D 250mg/ 125uts) 1 tab [id number] PO Last administered on 08/15/17 13:43; Start 08/13/17 at 08:00; Stop 08/16/17 at 14: 07; Status DC Albuterol/ Ipratropium (Duoneb) 3 ml RTQID NEB ; Start 08/12/17 at 20:00; Status Cancel Guaifenesin (Robitussin Dm) 10 ml PRN Q6HRS PRN PO COUGH; Start 08/12/17 at 18: 45 Levofloxacin/ Dextrose 150 ml @ As Directed STK-MED ONCE IV ; Start 08/12/17 at 18:32; Stop 08/12/17 at 18:33; Status DC Levofloxacin/ Dextrose 150 ml @ 100 mls/hr ONCE ONCE IV Last administered on 08/12/17 19:29; Start 08/12/17 at 18:45; Stop 08/12/17 at 20:14; Status DC Enoxaparin Sodium (Lovenox 40mg Syringe) 40 mg Q24H SQ Last administered on 19:46; Start 08/12/17 at 19:00; Stop 08/15/17 at 12:39; Status DC Albuterol/ Ipratropium (Duoneb) 3 ml RTQID NEB Last administered on 08/19/17 19:39; Start 08/12/17 at 20:00 Benzonatate (Tessalon Perle) 100 mg [id number] PO Last administered on 08/16/17 08:54; Start 08/12/17 at 21:00; Stop 08/16/17 at 14:07; Status DC Levofloxacin/ Dextrose 50 ml @ 50 mls/hr Q24H IV ; Start 08/13/17 at 19:30; Stop 08/13/17 at 19:30; Status DC Sodium Chloride 1,000 ml @ 100 mls/hr Q10H IV Last administered on 08/13/17 07:44; Start 08/12/17 at 19:41; Stop 08/13/17 at 19:40; Status DC Norepinephrine Bitartrate 250 ml @ 0 mls/hr CONT PRN IV SEE I/O RECORD Last administered on 08/14/17 19:46; Start 08/12/17 at 21:00 Vancomycin HCl 250 ml @ 250 mls/hr 1X ONCE IV Last administered on 08/12/17 21:00; Start 08/12/17 at 21:00; Stop 08/12/17 at 21:19; Status DC Vancomycin HCl 1.75 gm/Dextrose 500 ml @ 250 mls/hr 1X ONCE IV Last administered on 08/12/17 21:18; Start 08/12/17 at 22:00; Stop 08/12/17 at 23:59 ; Status DC Vancomycin HCl (Vanco Per Pharmacy) 1 each PRN DAILY PRN MC SEE COMMENTS Last administered on 08/14/17 23:02; Start 08/12/17 at 21:30; Stop 08/15/17 at 08: 44; Status DC Piperacillin Sod/ Tazobactam Sod 3.375 gm/Dextrose 50 ml @ 100 mls/hr Q6HRS IV ; Start 08/13/17 at 08:30; Status Cancel Vancomycin HCl (Vanco Per Pharmacy) 1 each PRN DAILY PRN MC SEE COMMENTS; Start 08/13/17 at 08:15; Stop 08/13/17 at 08:19; Status DC Vancomycin HCl 1 gm/Dextrose 250 ml @ 250 mls/hr Q24H IV Last administered on 08/14/17 21:21; Start 08/13/17 at 21:00; Stop 08/15/17 at 08:43; Status DC Vancomycin HCl 1 each 1X ONCE MC ; Start 08/14/17 at 20:30; Stop 08/14/17 at 20 :31; Status DC Piperacillin Sod/ Tazobactam Sod (Zosyn) 3.375 gm Q6HRS IVP Last administered on 08/15/17 05:28; Start 08/13/17 at 08:45; Stop 08/15/17 at 08:46; Status DC Levofloxacin/ Dextrose 150 ml @ 100 mls/hr Q48H IV Last administered on 23:05; Start 08/14/17 at 19:00 Diphenhydramine HCl (Benadryl) 25 mg PRN Q6HRS PRN PO ITCHING Last administered on 08/13/17 19:57; Start 08/13/17 at 19:45 Zolpidem Tartrate (Ambien) 5 mg 1X ONCE PO ; Start 08/13/17 at 21:30; Stop 08/13/17 at 21:31; Status DC Sodium Chloride 1,000 ml @ 100 mls/hr Q10H IV Last administered on 08/14/17 18:15; Start 08/14/17 at 08:00; Stop 08/15/17 at 19:03; Status DC Lactobacillus Rhamnosus (Culturelle) 1 cap BID PO Last administered on 21:30; Start 08/14/17 at 21:00 Sodium Chloride 500 ml @ 500 mls/hr 1X ONCE IV Last administered on 19:48; Start 08/14/17 at 19:00; Stop 08/14/17 at 19:59; Status DC Lorazepam (Ativan) 1 mg PRN Q2HRS PRN PO ANXIETY / AGITATION Last administered on 08/15/17 13:42; Start 08/14/17 at 19:30 Furosemide (Lasix) 20 mg 1X ONCE IVP Last administered on 08/15/17 08:30; Start 08/15/17 at 08:30; Stop 08/15/17 at 08:31; Status DC Enoxaparin Sodium (Lovenox 30mg Syringe) 30 mg Q24H SQ Last administered on 19:09; Start 08/15/17 at 17:00 Furosemide (Lasix) 40 mg DAILY IVP Last administered on 08/18/17 08:31; Start 08/15/17 at 15:00; Stop 08/18/17 at 09:00; Status DC Haloperidol Lactate (Haldol) 5 mg PRN Q6HRS PRN IVP AGITATION Last administered on 08/19/17 21:29; Start 08/15/17 at 18:15 Diphenhydramine HCl (Benadryl) 25 mg PRN Q6HRS PRN IVP ITCHING Last administered on 08/16/17 13:51; Start 08/15/17 at 19:15 Dextrose 500 ml @ 500 mls/hr 1X ONCE IV Last administered on 08/16/17 11:00 ; Start 08/16/17 at 11:00; Stop 08/16/17 at 11:59; Status DC Potassium Chloride 40 meq/ Dextrose 1,020 ml @ 75 mls/hr 1X ONCE IV Last administered on 08/16/17 12:51; Start 08/16/17 at 11:00; Stop 08/17/17 at 00 :35; Status DC Docusate Sodium (Colace Solution) 100 mg DAILY PO Last administered on 08:31; Start 08/17/17 at 09:00 Piperacillin Sod/ Tazobactam Sod 2.25 gm/Dextrose 50 ml @ 100 mls/hr Q6HRS IV ; Start 08/16/17 at 18:00; Status UNV Piperacillin Sod/ Tazobactam Sod (Zosyn) 2.25 gm Q6HRS IVP Last administered on 08/20/17 06:02; Start 08/16/17 at 18:00 Morphine Sulfate 2 mg PRN Q2HR PRN IV PAIN; Start 08/16/17 at 17:45 Morphine Sulfate 4 mg PRN Q2HR PRN IV PAIN Last administered on 08/20/17 01: 45; Start 08/16/17 at 17:45 Morphine Sulfate 6 mg PRN Q2HR PRN IV PAIN; Start 08/16/17 at 17:45 Potassium Chloride (KCl Oral Soln) 40 meq 1X ONCE PEG Last administered on 06:26; Start 08/17/17 at 07:00; Stop 08/17/17 at 07:01; Status DC Potassium Chloride (KCl Oral Soln) 20 meq BID PEG ; Start 08/17/17 at 21:00; Status Cancel Potassium Chloride (KCl Oral Soln) 40 meq 1X ONCE PEG Last administered on 16:30; Start 08/17/17 at 16:00; Stop 08/17/17 at 16:01; Status DC Potassium Chloride (KCl Oral Soln) 20 meq BID PEG Last administered on 21:30; Start 08/18/17 at 09:00 Dextrose 1,000 ml @ 75 mls/hr [id number] IV Last administered on 08/20/17 06:01 ; Start 08/18/17 at 11:30 Lorazepam (Ativan) 2 mg PRN Q2HRS PRN IV ANXIETY / AGITATION; Start 08/20/17 at 08:15 Active Scripts Active Reported Avodart (Dutasteride) 0.5 Mg Capsule 1 Cap PO DAILY Docusate Sodium 100 Mg Capsule 2 Cap PO DAILY Caltrate 600 + D Tablet (Calcium Carbonate/Vitamin D3) 1 Each Tablet 1 Each PO Vitamin D (Cholecalciferol (Vitamin D3)) 2,000 Unit Capsule 1 Cap PO DAILY Carvedilol 6.25 Mg Tablet 0.5 Tab PO DAILY Lamictal (Lamotrigine) 100 Mg Tablet 2 Tab PO DAILY Levothyroxine Sodium 50 Mcg Tablet 1 Tab PO DAILY Vitals/I & O Vital Sign - Last 24 Hours 08/19/17 08/19/17 08/19/17 08/19/17 09:00 10:00 11:00 11:38 Pulse 67 72 72 Resp 20 26 B/P (MAP) 112/52 (72) 99/49 (66) 83/52 (62) Pulse Ox 97 95 98 95 O2 Delivery BiPAP/CPAP BiPAP/CPAP BiPAP/CPAP BiPAP/CPAP 08/19/17 08/19/17 08/19/17 08/19/17 12:00 12:00 12:39 14:00 Temp 97.6 97.6 Pulse 70 72 Resp 30 29 B/P (MAP) 106/48 (67) 80/43 (55) Pulse Ox 98 95 97 O2 Delivery BiPAP/CPAP Bi-pap BiPAP/CPAP O2 Flow Rate 15.0 08/19/17 08/19/17 08/19/17 08/19/17 15:00 15:24 16:00 16:00 Temp 97.2 97.2 Pulse 66 86 Resp 23 26 B/P (MAP) 100/46 (64) 102/45 (64) Pulse Ox 96 95 96 O2 Delivery BiPAP/CPAP BiPAP/CPAP BiPAP/CPAP Bi-pap 08/19/17 08/19/17 08/19/17 08/19/17 17:00 18:00 19:00 19:25 Pulse 82 Resp 25 27 22 34 B/P (MAP) 109/49 (69) 114/49 (70) 110/53 (72) Pulse Ox 96 95 95 95 O2 Delivery BiPAP/CPAP BiPAP/CPAP BiPAP/CPAP BiPAP/CPAP O2 Flow Rate 15.0 08/19/17 08/19/17 08/19/17 08/19/17 19:37 19:55 20:00 20:00 Resp 25 B/P (MAP) 94/39 (57) Pulse Ox 95 95 O2 Delivery BiPAP/CPAP BiPAP/CPAP BiPAP/CPAP O2 Flow Rate 15.0 08/19/17 08/19/17 08/19/17 08/19/17 20:00 21:00 22:00 23:00 Resp 25 24 28 B/P (MAP) 96/71 (79) 106/49 (68) 95/46 (62) Pulse Ox 95 94 94 O2 Delivery Bi-pap BiPAP/CPAP BiPAP/CPAP BiPAP/CPAP 08/19/17 08/20/17 08/20/17 08/20/17 23:43 00:00 00:00 00:00 Temp 100.0 100.0 Pulse 67 Resp 28 B/P (MAP) 98/44 (62) Pulse Ox 95 95 O2 Delivery BiPAP/CPAP Bi-pap BiPAP/CPAP O2 Flow Rate 15.0 08/20/17 08/20/17 08/20/17 08/20/17 01:00 01:22 01:45 02:00 Pulse 98 88 Resp 28 38 23 B/P (MAP) 95/46 (62) 79/53 (62) Pulse Ox 98 94 95 98 O2 Delivery BiPAP/CPAP BiPAP/CPAP BiPAP/CPAP BiPAP/CPAP O2 Flow Rate 15.0 08/20/17 08/20/17 08/20/17 08/20/17 02:15 03:00 03:38 04:00 Temp 98.7 98.7 Pulse 88 88 Resp 28 27 26 B/P (MAP) 89/53 (65) 85/53 (64) Pulse Ox 92 98 92 98 O2 Delivery BiPAP/CPAP BiPAP/CPAP BiPAP/CPAP O2 Flow Rate 15.0 08/20/17 08/20/17 08/20/17 08/20/17 04:00 04:00 05:00 05:40 Pulse 88 Resp 28 B/P (MAP) 100/54 (69) Pulse Ox 98 92 O2 Delivery Bi-pap BiPAP/CPAP BiPAP/CPAP O2 Flow Rate 15.0 08/20/17 06:00 Pulse 88 Resp 26 B/P (MAP) 79/45 (56) Pulse Ox 98 O2 Delivery BiPAP/CPAP Intake and Output 08/19/17 08/19/17 08/20/17 14:59 22:59 06:59 Intake Total 525 ml 1150 ml 1249 ml Output Total 315 ml 340 ml 295 ml Balance 210 ml 810 ml 954 ml RODNEY ALAS MD Aug 20, 2017 08:42
--- NOTE | 2017-08-20 11:16 | PDOC ---
PULMONARY PROGRESS NOTES Subjective ON COMFORT CARE Vitals Vital Signs Date Time Temp Pulse Resp B/P (MAP) Pulse Ox O2 Delivery O2 Flow Rate FiO2 08/20/17 08:50 Nasal Cannula 2.0 08/20/17 08:40 98 08/20/17 08:00 106 12 90/41 (57) 08/20/17 04:00 98.7 98.7 Lungs: Other (marked decreased rate) Cardiovascular: S1, S2 Abdomen: Soft, Non-tender Extremities: Other (1+edema) Skin: Warm Labs Laboratory Tests Test 08/19/17 05:00 08/19/17 05:05 08/20/17 05:20 Sodium Level 150 mmol/L (136-145) 144 mmol/L (136-145) Potassium Level 3.3 mmol/L (3.5-5.1) 4.1 mmol/L (3.5-5.1) Chloride Level 110 mmol/L (98-107) 107 mmol/L (98-107) Carbon Dioxide Level 30 mmol/L (21-32) 30 mmol/L (21-32) Anion Gap 10 (6-14) 7 (6-14) Blood Urea Nitrogen 50 mg/dL (8-26) 48 mg/dL (8-26) Creatinine 1.7 mg/dL (0.7-1.3) 1.6 mg/dL (0.7-1.3) Estimated GFR (Cockcroft-Gault) 38.2 41.0 Glucose Level 126 mg/dL (70-99) 136 mg/dL (70-99) Calcium Level 7.6 mg/dL (8.5-10.1) 7.0 mg/dL (8.5-10.1) White Blood Count 13.3 x10^3/uL (4.0-11.0) 14.3 x10^3/uL (4.0-11.0) Red Blood Count 3.90 x10^6/uL (4.30-5.70) 3.79 x10^6/uL (4.30-5.70) Hemoglobin 12.2 g/dL (13.0-17.5) 12.0 g/dL (13.0-17.5) Hematocrit 36.1 % (39.0-53.0) 35.1 % (39.0-53.0) Mean Corpuscular Volume 93 fL (79-100) 93 fL (79-100) Mean Corpuscular Hemoglobin 31 pg (25-35) 32 pg (25-35) Mean Corpuscular Hemoglobin Concent 34 g/dL (31-37) 34 g/dL (31-37) Red Cell Distribution Width 14.9 % (11.5-14.5) 15.6 % (11.5-14.5) Platelet Count 152 x10^3/uL (140-400) 130 x10^3/uL (140-400) Neutrophils (%) (Auto) 81 % (31-73) 81 % (31-73) Lymphocytes (%) (Auto) 13 % (24-48) 12 % (24-48) Monocytes (%) (Auto) 5 % (0-9) 6 % (0-9) Eosinophils (%) (Auto) 0 % (0-3) 1 % (0-3) Basophils (%) (Auto) 0 % (0-3) 0 % (0-3) Neutrophils # (Auto) 10.8 x10^3uL (1.8-7.7) 11.6 x10^3uL (1.8-7.7) Lymphocytes # (Auto) 1.8 x10^3/uL (1.0-4.8) 1.6 x10^3/uL (1.0-4.8) Monocytes # (Auto) 0.7 x10^3/uL (0.0-1.1) 0.9 x10^3/uL (0.0-1.1) Eosinophils # (Auto) 0.0 x10^3/uL (0.0-0.7) 0.1 x10^3/uL (0.0-0.7) Basophils # (Auto) 0.0 x10^3/uL (0.0-0.2) 0.0 x10^3/uL (0.0-0.2) Laboratory Tests Test 08/20/17 05:20 White Blood Count 14.3 x10^3/uL (4.0-11.0) Red Blood Count 3.79 x10^6/uL (4.30-5.70) Hemoglobin 12.0 g/dL (13.0-17.5) Hematocrit 35.1 % (39.0-53.0) Mean Corpuscular Volume 93 fL (79-100) Mean Corpuscular Hemoglobin 32 pg (25-35) Mean Corpuscular Hemoglobin Concent 34 g/dL (31-37) Red Cell Distribution Width 15.6 % (11.5-14.5) Platelet Count 130 x10^3/uL (140-400) Neutrophils (%) (Auto) 81 % (31-73) Lymphocytes (%) (Auto) 12 % (24-48) Monocytes (%) (Auto) 6 % (0-9) Eosinophils (%) (Auto) 1 % (0-3) Basophils (%) (Auto) 0 % (0-3) Neutrophils # (Auto) 11.6 x10^3uL (1.8-7.7) Lymphocytes # (Auto) 1.6 x10^3/uL (1.0-4.8) Monocytes # (Auto) 0.9 x10^3/uL (0.0-1.1) Eosinophils # (Auto) 0.1 x10^3/uL (0.0-0.7) Basophils # (Auto) 0.0 x10^3/uL (0.0-0.2) Sodium Level 144 mmol/L (136-145) Potassium Level 4.1 mmol/L (3.5-5.1) Chloride Level 107 mmol/L (98-107) Carbon Dioxide Level 30 mmol/L (21-32) Anion Gap 7 (6-14) Blood Urea Nitrogen 48 mg/dL (8-26) Creatinine 1.6 mg/dL (0.7-1.3) Estimated GFR (Cockcroft-Gault) 41.0 Glucose Level 136 mg/dL (70-99) Calcium Level 7.0 mg/dL (8.5-10.1) Medications Active Scripts Medications Dose Route/Sig Max Daily Dose Days Date Category Avodart (Dutasteride) 0.5 Mg Capsule 1 Cap PO DAILY 08/12/17 Reported Docusate Sodium 100 Mg Capsule 2 Cap PO DAILY 08/12/17 Reported Caltrate 600 + D Tablet (Calcium Carbonate/Vitamin D3) 1 Each Tablet 1 Each PO 08/12/17 Reported Vitamin D (Cholecalciferol (Vitamin D3)) 2,000 Unit Capsule 1 Cap PO DAILY 08/12/17 Reported Carvedilol 6.25 Mg Tablet 0.5 Tab PO DAILY 08/12/17 Reported Lamictal (Lamotrigine) 100 Mg Tablet 2 Tab PO DAILY 08/12/17 Reported Levothyroxine Sodium 50 Mcg Tablet 1 Tab PO DAILY 08/12/17 Reported Comments 08/18 AGATHA INFILTRATES / IMPROVED SINCE 08/15 Impression . 1. Acute resp failure POA/Abnormal x-ray compatible with pneumonia, suspect gram negative.ARDS/ ? component of CHF 2. Septic shock, improved, off pressors 3. Mild protein malnutrition, present upon admission. 4. Tobacco abuse, in remission. 5. Hypothyroidism. 6. Dementia. 7. Acute toxic encephalopathy, present upon admission. improved 8. Hypernatremia 9. Hypokalemia . Plan . TERMINALLY/ OFF BIPAP PALLIATIVE CARE D/W DAUGHTERS PT IS DNR/DNI JARRED MCGOVERN MD Aug 20, 2017 11:16
--- NOTE | 2017-09-17 23:28 | PDOC3 ---
Discharge Summary Visit Information Date of Admission: Aug 12, 2017 Date of Discharge: Aug 20, 2017 Final Diagnosis 1. pneumonia, hypoxic respiratory faiulre, had failed to improved on bipap 2. Severe sepsis with HYPOTENSION, infectious 3. Dementia, chronic encephalopathy 4. Hypocalcemia 5. 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 hypothyroidism 7. Elevated lactate was from severe sepsis 8, hypokalemia Problems Medical Problems: (1) Community acquired pneumonia Status: Acute (2) Dementia Status: Acute (3) Lactic acidosis Status: Acute (4) Severe sepsis Status: Acute Brief Hospital Course Allergies Allergies Coded Allergies Type Severity Reaction Last Updated Verified No Known Drug Allergies 08/12/17 No Brief Hospital Course Mr. Courtney is a 87 old male [facility] basleine dementia, admit to ER, ICU with pnemonia, sepsis poorly responsive to treatment, cont days of care in ICU care withdrawn 08/20 at 0830, meds changed to palliaitive only mult family in room, RN and palliative team here, Discharge Information Disposition/Orders: Scheduled Carvedilol (Carvedilol), 0.5 TAB PO DAILY, (Reported) Cholecalciferol (Vitamin D3) (Vitamin D), 1 CAP PO DAILY, (Reported) Docusate Sodium (Docusate Sodium), 2 CAP PO DAILY, (Reported) Dutasteride (Avodart), 1 CAP PO DAILY, (Reported) Lamotrigine (Lamictal), 2 TAB PO DAILY, (Reported) Levothyroxine Sodium (Levothyroxine Sodium), 1 TAB PO DAILY, (Reported) Miscellaneous Medications Calcium Carbonate/Vitamin D3 (Caltrate 600 + D Tablet), 1 EACH PO, (Reported) RODNEY ALAS MD Sep 17, 2017 23:28
== END 2017-08-20 16:10 | disposition expired | DRG 871 ==
LOC: ER 17:25 → 1 WEST ICU 18:24
PROVIDERS: ADMIT Internal Medicine; ATTEND Internal Medicine
PROC: 5A09357 Assistance with Respiratory Ventilation, Less than 24 Consecutive Hours, Continuous Positive Airway Pressure (ICD-10-PCS; 2017-08-16)
PROC: 05H333Z Insertion of Infusion Device into Right Innominate Vein, Percutaneous Approach (ICD-10-PCS; principal; 2017-08-18)
PROC: 5A09457 Assistance with Respiratory Ventilation, 24-96 Consecutive Hours, Continuous Positive Airway Pressure (ICD-10-PCS; 2017-08-18)
DX: A41.9 Sepsis, unspecified organism (principal); G92 Toxic encephalopathy; J96.01 Acute respiratory failure with hypoxia; N17.0 Acute kidney failure with tubular necrosis; R65.21 Severe sepsis with septic shock; G06.1 Intraspinal abscess and granuloma; J15.6 Pneumonia due to other Gram-negative bacteria; N18.3 Chronic kidney disease, stage 3 (moderate); I13.0 Hypertensive heart and chronic kidney disease with heart failure and stage 1 through stage 4 chronic kidney disease, or unspecified chronic kidney disease; E87.0 Hyperosmolality and hypernatremia; E44.1 Mild protein-calorie malnutrition; J44.0 Chronic obstructive pulmonary disease with (acute) lower respiratory infection; E44.0 Moderate protein-calorie malnutrition; E11.22 Type 2 diabetes mellitus with diabetic chronic kidney disease; I50.9 Heart failure, unspecified; B95.62 Methicillin resistant Staphylococcus aureus infection as the cause of diseases classified elsewhere; E03.9 Hypothyroidism, unspecified; E83.51 Hypocalcemia; E87.6 Hypokalemia; F03.90 Unspecified dementia, unspecified severity, without behavioral disturbance, psychotic disturbance, mood disturbance, and anxiety; F20.9 Schizophrenia, unspecified; G40.909 Epilepsy, unspecified, not intractable, without status epilepticus; H91.90 Unspecified hearing loss, unspecified ear; I80.8 Phlebitis and thrombophlebitis of other sites; F17.211 Nicotine dependence, cigarettes, in remission; M48.061 Spinal stenosis, lumbar region without neurogenic claudication; N40.0 Benign prostatic hyperplasia without lower urinary tract symptoms; Z66 Do not resuscitate; Z51.5 Encounter for palliative care; Z79.2 Long term (current) use of antibiotics; Z82.49 Family history of ischemic heart disease and other diseases of the circulatory system; Z68.21 Body mass index [BMI] 21.0-21.9, adult; Z95.0 Presence of cardiac pacemaker
CPT/HCPCS: 36415; 36600; 71010; 74000; 80048; 80053; 80202; 82553; 82805; 83605; 83735; 83880; 84132; 84484; 85025; 85027; 87040; 87641; 93005; 94250; 94640; 94660; 94760; 96374; 96375; J0610; J1200; J1630; J1650; J1940; J1956; J2060; J2270; J2543; J3370; J7030; J7040; J7620; Q0163; 97530; 97535; 99291-25